=== PATIENT | female | born 1965 | race Caucasian/White ===

== ENCOUNTER 2019-04-26 10:03 | Inpatient (IN) | payer MEDICARE, MEDICAID, SELFPAY ==
[2019-04-28] VITALS (19 sets, daily range): BP systolic 121–137; BP diastolic 72–84; PULSE 100–120; RESP 8–28; TEMP 36.7–37; O2SAT 90–96
[2019-04-28] MEDS: oxyCODONE 5 mg IR Tab/Cap 15 MG PO ×5 (01:38→20:14)
[2019-04-28] MEDS: sodium chloride 0.9 % (flush) syringe 10 mL 2 ML IV ×3 (06:31→21:12)
[2019-04-28] MEDS: ipratropium-albuterol 3 mL Neb INHALATION ×4 (08:16→19:53)
[2019-04-28] MEDS: montelukast sodium 10 mg Tablet PO (08:40)
[2019-04-28] MEDS: PARoxetine 20 mg Tablet 10 MG PO (08:40)
[2019-04-28] MEDS: pantoprazole DR 40 mg Tablet PO (08:40)
[2019-04-28] MEDS: folic acid 1 mg Tablet PO (08:40)
[2019-04-28] MEDS: thiamine 100 mg Tablet PO (08:40)
[2019-04-28] MEDS: roflumilast 500 mcg Tablet PO (08:40)
[2019-04-28] MEDS: multivitamin therapeutic Tablet 1 TAB PO (08:40)
[2019-04-28] MEDS: acetaminophen 325 mg Tablet 650 MG PO (08:41)
[2019-04-28] MEDS: nicotine 21 mg Patch 1 PATCH TRANSDERMA (08:41)
[2019-04-28] MEDS: enoxaparin 40 mg/0.4 mL Syringe SUBCUT (10:45)
[2019-04-28] MEDS: LORazepam 2 mg/mL INJ 1 mL IVP (14:52)
[2019-04-28] MEDS: levofloxacin-dextrose 5% 750 mg-150 mL Premix 150 MG IV (17:39)
--- NOTE | 2019-04-28 19:34 | PM.PN ---
Subjective Subjective: Interval history: Today feeling perhaps very slightly better. During my visit BiPAP is off, she is preparing to have dinner. Nasal cannula on. Speaks in short sentences. Reports medications have been have been helping for her anxiety. Reports at home still has between 1 and 3 beers at night which she says she spaces out over several hours. Vitals/I&O/Wt Last Vital Signs Temp 98.5 F 04/28/19 15:35 Pulse 113 H 04/28/19 16:56 Resp 20 H 04/28/19 15:35 BP 121/79 04/28/19 15:35 Pulse Ox 90 04/28/19 16:56 04/28/19 04/28/19 04/28/19 06:59 14:59 22:59 Intake Total 780 / 780 120 / 900 Output Total 1100 / 1100 Balance -1100 / -1100 780 / 780 120 / 900 Weight last 48 hrs Weight 52.758 kg Physical Exam Const: COMMON NORMALS: no apparent distress and oriented x3 GENERAL APPEARANCE: anxious HENMT: COMMON NORMALS: oropharynx normal Neck/C-Spine: COMMON NORMALS: no JVD Resp: COMMON NORMALS: normal respiratory effort AUSCULTATION: wheezes and diminished lung sounds Cardio: COMMON NORMALS: no JVD, regular rhythm, S1 normal heart sound, S2 normal heart sound and no murmurs RHYTHM: regular rhythm HEART SOUNDS: S1 normal and S2 normal GI: COMMON NORMALS: normal to inspection, nondistended, normoactive bowel sounds, soft to palpation and non-tender PALPATION: Yes soft Extremity: COMMON NORMALS: no joint enlargement and no pedal edema Neuro: COMMON NORMALS: oriented x3 and moves all extremities Skin: COMMON NORMALS: no rashes or lesions noted GENERAL SKIN EXAM: no rashes or lesions noted Data Micro: Micro: Microbiology 04/28/19 08:06 Gram Stain - Final Sputum - Expector ated Sputum A&P Assessment and plan (1) Acute and chronic respiratory failure ([id number]): Requiring BiPAP support. Today feeling perhaps slightly better. Was able to come off BiPAP for some time to have dinner while on nasal cannula. At home chronically on 4 L nasal cannula, BiPAP at night due to INOCENCIO. Yesterday due to persistent dyspnea steroid dose was increased to Solu-Medrol 80 mg every 6 hours. She is mildly improved, still very easily dyspneic, with decreased air entry, wheezing on exam. She is agreeable to continue current dose of IV steroid. Continue Levaquin. Breathing treatments. Oxygen support. BiPAP support. Status: Acute Code(s): J96.20 - Acute and chronic respiratory failure, unspecified whether with hypoxia or hypercapnia (2) COPD exacerbation: Severe exacerbation with dyspnea, productive cough, hypoxia. As above Status: Acute Code(s): J44.1 - Chronic obstructive pulmonary disease with (acute) exacerbation (3) INOCENCIO (obstructive sleep apnea): BiPAP nightly Status: Acute Code(s): G47.33 - Obstructive sleep apnea (adult) (pediatric) (4) Smoking addiction: Continue nicotine supplementation for cravings. Continue to encourage cessation. Status: Acute Code(s): F17.200 - Nicotine dependence, unspecified, uncomplicated (5) Alcohol consumption of more than two drinks per day: With alcohol withdrawal in the hospital. With anxiety, tachycardia. Continue CIWA protocol for withdrawal. Discussed with her she says at home has anywhere between 1-3 beers per night. Discussed with her to try to discontinue alcohol intake or at least keep down to 1 drink or less. She verbalized understanding. Status: Acute Code(s): Z78.9 - Other specified health status Attestations Medical Necessity Statement*: Continue admission for assessment of management of acute on chronic respiratory failure with severe COPD exacerbation. Coding Level of Care Code Acute Fast Food Assistant Restaurant Manager for Kaylah Bach Diagnoses Acute and chronic respiratory failure ([id number]) J96.20 COPD exacerbation J44.1 INOCENCIO (obstructive sleep apnea) G47.33 Smoking addiction F17.200 Alcohol consumption of more than two drinks per day Z78.9
[2019-04-29] VITALS (22 sets, daily range): BP systolic 119–153; BP diastolic 70–88; PULSE 99–133; RESP 18–22; TEMP 36.4–37.1; O2SAT 90–98
[2019-04-29] MEDS: ipratropium-albuterol 3 mL Neb INHALATION ×6 (01:00→22:45)
[2019-04-29] MEDS: oxyCODONE 5 mg IR Tab/Cap 15 MG PO ×5 (03:10→21:01)
[2019-04-29 05:43] LABS: Anion Gap 9.1 (5-19); Blood Urea Nitrogen 14 mg/dL (6-20); Calcium 9.9 mg/Dl (8.6-10.0); Chloride 93 mmol/L (98-107); Glucose 164 mg/dL (74-109); Potassium 4.1 mmol/L (3.5-5.1); Sodium 140 mmol/L (136-145)
[2019-04-29] MEDS: sodium chloride 0.9 % (flush) syringe 10 mL 2 ML IV ×3 (05:44→23:24)
[2019-04-29 05:53] LABS: Carbon Dioxide 42 mmol/L (22-29)
[2019-04-29] MEDS: folic acid 1 mg Tablet PO (08:23)
[2019-04-29] MEDS: roflumilast 500 mcg Tablet PO (08:23)
[2019-04-29] MEDS: pantoprazole DR 40 mg Tablet PO (08:23)
[2019-04-29] MEDS: PARoxetine 20 mg Tablet 10 MG PO (08:24)
[2019-04-29] MEDS: thiamine 100 mg Tablet PO (08:24)
[2019-04-29] MEDS: multivitamin therapeutic Tablet 1 TAB PO (08:24)
[2019-04-29] MEDS: montelukast sodium 10 mg Tablet PO (08:24)
[2019-04-29] MEDS: nicotine 21 mg Patch 1 PATCH TRANSDERMA (08:25)
--- NOTE | 2019-04-29 11:07 | PC.SOCIAL ---
IMM Update Pg 2 of IMM given and explained to patient who voiced understanding. Signed, dated, and timed, and placed in chart. Copy provided to patient.
[2019-04-29] MEDS: enoxaparin 40 mg/0.4 mL Syringe SUBCUT (12:19)
--- NOTE | 2019-04-29 15:00 | PC.CHAP ---
Pastoral Care Encounter/Spiritual Assessment Type of Contact [] Declined chlorine cell tender visit [] Patient/Family/Request visit [] Outpatient visit [x] Follow-up visit [] Physician referral [] Code/Alert [] Routine visit [] Staff referral [] Actively dying [] Patient sleeping [] Family support [] [] Out of room [] Palliative care [] [x] Receiving care in room [] Pre-surgical visit [] Trauma [] Long length of stay [] ICU visit [] Other: Relational/Emotional Strength [] Patient feels connected with others/family/visitors/staff [] Distress [] Loneliness/isolation [] Abandonment Spirituality of Patient [] Person of Any [] Attends Taoist of their Any [] Believes in Prayer [] Reads Bible or Mu-Ism materials [] There are Spiritual issues to be addressed Boilermaking Supervisor Interventions [] Prayer [] Active listening [] Non-anxious presence [] Spiritual/emotional support [] Crisis/trauma care [] Spiritual counseling [] Bereavement support [] Provided bereavement packet [] Provided Bible/devotional materials [] Provided toy/stuffed animal, coloring book to patient or family member [] Completed spiritual assessment [] Provided Communion [] Anointing/[place] [] Salvation [] Other: Impact on Illness or Injury [] Angry [] Fearful [] Anxious [] Often cries [] Exhaustion [] Unable to work [] Unable to attend quaker [] Unable to walk/stand [] Unable to read [] Unable to drive [] Unable to eat/drink [] Unable to sleep [] Unable to be with family [] Other: Summary Patient busy with staff, will followup. Lynnette Time spent with patient
--- NOTE | 2019-04-29 16:08 | PM.PN ---
Subjective Subjective: Interval history: She is slowly starting to feel better, although is getting short of breath episodically. Has been using BiPAP less frequently. Medications: Reviewed: Yes Vitals/I&O/Wt Last Vital Signs Temp 98.2 F 04/29/19 15:28 Pulse 114 H 04/29/19 15:28 Resp 20 H 04/29/19 15:28 BP 129/72 04/29/19 15:28 Pulse Ox 90 04/29/19 15:28 04/29/19 04/29/19 04/29/19 06:59 14:59 22:59 Intake Total 354 / 354 476 / 830 Output Total 1000 / 1600 600 / 600 Balance -1000 / -190 354 / 354 -124 / 230 Physical Exam Const: COMMON NORMALS: no apparent distress and oriented x3 NUTRITIONAL APPEARANCE: thin OTHER: Mildly tremulous HENMT: COMMON NORMALS: oropharynx normal Neck/C-Spine: COMMON NORMALS: no JVD Resp: COMMON NORMALS: normal respiratory effort AUSCULTATION: wheezes and diminished lung sounds Cardio: COMMON NORMALS: no JVD, regular rhythm, S1 normal heart sound, S2 normal heart sound and no murmurs RATE: tachycardic RHYTHM: regular rhythm HEART SOUNDS: S1 normal and S2 normal GI: COMMON NORMALS: normal to inspection, nondistended, normoactive bowel sounds, soft to palpation and non-tender PALPATION: Yes soft Extremity: COMMON NORMALS: no joint enlargement and no pedal edema Neuro: COMMON NORMALS: oriented x3 and moves all extremities Psych: APPEARANCE: Yes other (Today appears less anxious) Skin: COMMON NORMALS: no rashes or lesions noted GENERAL SKIN EXAM: no rashes or lesions noted Data Micro: Micro: Microbiology 04/28/19 08:06 Gram Stain - Final Sputum - Expector ated Sputum Sputum Culture - P reliminary A&P Assessment and plan (1) Acute and chronic respiratory failure (ooqyf-go-okuokpt): Requiring less BiPAP support. Less anxious. On 6 L of oxygen. Today feeling perhaps slightly better. Was able to come off BiPAP for some time to have dinner while on nasal cannula. At home chronically on 4 L nasal cannula, BiPAP at night due to INOCENCIO. Sputum culture with mixed growth. Continue current dose of IV steroid. Continue Levaquin. Breathing treatments. Oxygen support. BiPAP support. Status: Acute Code(s): J96.20 - Acute and chronic respiratory failure, unspecified whether with hypoxia or hypercapnia (2) COPD exacerbation: Severe exacerbation with dyspnea, productive cough, hypoxia. As above. Improving very slowly. Status: Acute Code(s): J44.1 - Chronic obstructive pulmonary disease with (acute) exacerbation (3) INOCENCIO (obstructive sleep apnea): BiPAP nightly Status: Acute Code(s): G47.33 - Obstructive sleep apnea (adult) (pediatric) (4) Smoking addiction: Continue nicotine supplementation for cravings. Continue to encourage cessation. Status: Acute Code(s): F17.200 - Nicotine dependence, unspecified, uncomplicated (5) Alcohol consumption of more than two drinks per day: Alcohol withdrawal improving. Discussed with her to try to discontinue alcohol intake or at least keep down to 1 drink or less. She verbalized understanding. Status: Acute Code(s): Z78.9 - Other specified health status Attestations Medical Necessity Statement*: Continue admission for self-management of acute respiratory with hypoxia, severe COPD exacerbation, alcohol withdrawal. Coding Level of Care Code Acute Assistant Offset Press Operator for Kaylah Bach Diagnoses Acute and chronic respiratory failure ([id number]-[id number]) J96.20 COPD exacerbation J44.1 INOCENCIO (obstructive sleep apnea) G47.33 Smoking addiction F17.200 Alcohol consumption of more than two drinks per day Z78.9
[2019-04-29] MEDS: LORazepam 2 mg Tablet PO (16:11)
[2019-04-29] MEDS: acetaminophen 325 mg Tablet 650 MG PO (16:12)
[2019-04-29] MEDS: levofloxacin-dextrose 5% 750 mg-150 mL Premix 150 MG IV (16:16)
--- NOTE | 2019-04-29 16:42 | PC.RESP ---
bipap on standby-#B2,
--- NOTE | 2019-04-29 19:16 | PC.RESP ---
bipap on standby
[2019-04-30] VITALS (25 sets, daily range): BP systolic 121–149; BP diastolic 76–87; PULSE 106–123; RESP 16–22; TEMP 36.6–37.1; O2SAT 89–96
[2019-04-30] MEDS: oxyCODONE 5 mg IR Tab/Cap 15 MG PO ×5 (02:44→20:06)
[2019-04-30] MEDS: ipratropium-albuterol 3 mL Neb INHALATION ×6 (03:02→23:05)
[2019-04-30] MEDS: sodium chloride 0.9 % (flush) syringe 10 mL 2 ML IV ×2 (05:35→14:02)
[2019-04-30 06:30] LABS: Anion Gap 13.2 (5-19); Blood Urea Nitrogen 11 mg/dL (6-20); Calcium 9.5 mg/Dl (8.6-10.0); Carbon Dioxide 38 mmol/L (22-29); Chloride 93 mmol/L (98-107); Glomerular Filtration Rate 233.6 mL/min (90-130); Glucose 198 mg/dL (74-109); Potassium 4.2 mmol/L (3.5-5.1); Sodium 140 mmol/L (136-145)
--- NOTE | 2019-04-30 08:34 | PC.RESP ---
BIPAP ON STAND BY AT THIS TIME
[2019-04-30] MEDS: folic acid 1 mg Tablet PO (09:07)
[2019-04-30] MEDS: roflumilast 500 mcg Tablet PO (09:08)
[2019-04-30] MEDS: thiamine 100 mg Tablet PO (09:08)
[2019-04-30] MEDS: PARoxetine 20 mg Tablet 10 MG PO (09:08)
[2019-04-30] MEDS: montelukast sodium 10 mg Tablet PO (09:08)
[2019-04-30] MEDS: multivitamin therapeutic Tablet 1 TAB PO (09:08)
[2019-04-30] MEDS: pantoprazole DR 40 mg Tablet PO (09:09)
[2019-04-30] MEDS: nicotine 21 mg Patch 1 PATCH TRANSDERMA (09:11)
[2019-04-30] MEDS: acetaminophen 325 mg Tablet 650 MG PO ×2 (09:11→19:38)
[2019-04-30] MEDS: LORazepam 2 mg Tablet PO ×2 (09:11→19:37)
--- NOTE | 2019-04-30 12:04 | PC.NURSE ---
Respiratory notified of Dr. Nielson's request of o2 to be weaned to keep sats around 92% to keep patient from retaining c02.
[2019-04-30] MEDS: enoxaparin 40 mg/0.4 mL Syringe SUBCUT (12:19)
--- NOTE | 2019-04-30 13:18 | PC.CHAP ---
Pastoral Care Encounter/Spiritual Assessment Type of Contact [] Declined shoulder puncher visit [] Patient/Family/Request visit [] Outpatient visit [] Follow-up visit [] Physician referral [] Code/Alert [x] Routine visit [] Staff referral [] Actively dying [] Patient sleeping [] Family support [] [] Out of room [] Palliative care [] [] Receiving care in room [] Pre-surgical visit [] Trauma [] Long length of stay [] ICU visit [] Other: Relational/Emotional Strength [x] Patient feels connected with others/family/visitors/staff [] Distress [] Loneliness/isolation [] Abandonment Spirituality of Patient [x] Person of Any [] Attends Religion of their Any [x] Believes in Prayer [] Reads Bible or Yazidism materials [] There are Spiritual issues to be addressed Seo Executive Interventions [x] Prayer [x] Active listening [x] Non-anxious presence [x] Spiritual/emotional support [] Crisis/trauma care [] Spiritual counseling [] Bereavement support [] Provided bereavement packet [] Provided Bible/devotional materials [] Provided toy/stuffed animal, coloring book to patient or family member []x Completed spiritual assessment [] Provided Communion [] Anointing/[place] [] Salvation [] Other: Impact on Illness or Injury [] Angry [] Fearful [] Anxious [] Often cries [] Exhaustion [x] Unable to work [] Unable to attend jew [] Unable to walk/stand [] Unable to read [] Unable to drive [] Unable to eat/drink [] Unable to sleep [] Unable to be with family [] Other: Summary Suzette Rodriguez Time spent with patient 8-minutes
--- NOTE | 2019-04-30 13:39 | PC.RESP ---
Patient given information on Smoking Cessation and a schedule of classes,along with information for Pulmonary Rehab.
[2019-04-30] MEDS: predniSONE 20 mg Tablet 60 MG PO (14:01)
[2019-04-30] MEDS: levofloxacin-dextrose 5% 750 mg-150 mL Premix 150 MG IV (17:43)
--- NOTE | 2019-04-30 18:01 | PM.PN ---
Subjective Subjective: Interval history: Reports slow continuous improvement. Still coughing. Intermittent phlegm. Medications: Reviewed: Yes Vitals/I&O/Wt Last Vital Signs Temp 98.4 F 04/30/19 15:45 Pulse 119 H 04/30/19 15:45 Resp 16 04/30/19 15:53 BP 135/83 04/30/19 15:45 Pulse Ox 89 L 04/30/19 15:45 04/30/19 04/30/19 04/30/19 06:59 14:59 22:59 Intake Total 1000 / 2792 300 / 300 Output Total 200 / 800 1000 / 1000 200 / 1200 Balance / 1991 -700 / -700 -200 / -900 Physical Exam Const: COMMON NORMALS: no apparent distress and oriented x3 GENERAL APPEARANCE: anxious NUTRITIONAL APPEARANCE: thin OTHER: Mildly tremulous HENMT: COMMON NORMALS: oropharynx normal Neck/C-Spine: COMMON NORMALS: no JVD Resp: COMMON NORMALS: normal respiratory effort AUSCULTATION: wheezes and diminished lung sounds Cardio: COMMON NORMALS: no JVD, regular rhythm, S1 normal heart sound, S2 normal heart sound and no murmurs RATE: tachycardic RHYTHM: regular rhythm HEART SOUNDS: S1 normal and S2 normal GI: COMMON NORMALS: normal to inspection, nondistended, normoactive bowel sounds, soft to palpation and non-tender PALPATION: Yes soft Extremity: COMMON NORMALS: no joint enlargement and no pedal edema Neuro: COMMON NORMALS: oriented x3 and moves all extremities Psych: APPEARANCE: Yes other (Today appears less anxious) Skin: COMMON NORMALS: no rashes or lesions noted GENERAL SKIN EXAM: no rashes or lesions noted Data Micro: Micro: Microbiology 04/28/19 08:06 Gram Stain - Final Sputum - Expector ated Sputum Sputum Culture - F inal A&P Assessment and plan (1) Acute and chronic respiratory failure ([id number]): Slowly improving. Still hypoxic, diminished air entry on exam, wheezing, intermittently productive cough. Tachycardia. Sputum culture with mixed growth. Will change to oral steroid. Continue Levaquin. Breathing treatments. Oxygen support. BiPAP support. Status: Acute Code(s): J96.20 - Acute and chronic respiratory failure, unspecified whether with hypoxia or hypercapnia (2) COPD exacerbation: Severe exacerbation with dyspnea, productive cough, hypoxia. As above. Improving very slowly. Status: Acute Code(s): J44.1 - Chronic obstructive pulmonary disease with (acute) exacerbation (3) INOCENCIO (obstructive sleep apnea): BiPAP nightly Status: Acute Code(s): G47.33 - Obstructive sleep apnea (adult) (pediatric) (4) Smoking addiction: Continue nicotine supplementation for cravings. Continue to encourage cessation. Status: Acute Code(s): F17.200 - Nicotine dependence, unspecified, uncomplicated (5) Alcohol consumption of more than two drinks per day: Alcohol withdrawal appears to be resolving. Discussed with her to try to discontinue alcohol intake or at least keep down to 1 drink or less. Status: Acute Code(s): Z78.9 - Other specified health status Attestations Medical Necessity Statement*: Continue admission for assessment management of acute respiratory failure with hypoxia, COPD exacerbation. Coding Level of Care Code Acute Food And Beverage Server for Kaylah Bach Diagnoses Acute and chronic respiratory failure ([id number]) J96.20 COPD exacerbation J44.1 INOCENCIO (obstructive sleep apnea) G47.33 Smoking addiction F17.200 Alcohol consumption of more than two drinks per day Z78.9
[2019-05-01] VITALS (22 sets, daily range): BP systolic 122–152; BP diastolic 68–91; PULSE 64–127; RESP 18–22; TEMP 36.7–37.1; O2SAT 92–97
[2019-05-01] MEDS: oxyCODONE 5 mg IR Tab/Cap 15 MG PO ×5 (00:51→21:29)
[2019-05-01] MEDS: ipratropium-albuterol 3 mL Neb INHALATION ×5 (02:23→23:01)
[2019-05-01] MEDS: LORazepam 2 mg Tablet PO ×2 (06:08→21:29)
[2019-05-01] MEDS: sodium chloride 0.9 % (flush) syringe 10 mL 2 ML IV ×2 (06:33→21:09)
[2019-05-01 06:43] LABS: Anion Gap 13.1 (5-19); Blood Urea Nitrogen 12 mg/dL (6-20); Calcium 9.6 mg/Dl (8.6-10.0); Carbon Dioxide 37 mmol/L (22-29); Chloride 90 mmol/L (98-107); Glomerular Filtration Rate 233.6 mL/min (90-130); Glucose 84 mg/dL (74-109); Potassium 4.1 mmol/L (3.5-5.1); Sodium 136 mmol/L (136-145)
--- NOTE | 2019-05-01 08:41 | PC.NURSE ---
pt bp 132/84 . reported the patients vomit was undigested food possibly due to coughing. O2 sat high 90s
--- NOTE | 2019-05-01 09:30 | ECG_ITS ---
Measurements Intervals [place] Rate: 123 P: 79 AL: 120 QRS: 64 QRSD: 97 T: 67 QT: 298 QTc: 428 SINUS TACHYCARDIA INCOMPLETE RIGHT BUNDLE BRANCH BLOCK [90+ ms QRS DURATION, TERMINAL R IN V1/V2, 40+ ms S IN I/aVL/V4/V5/V6] Compared to ECG 04/27/2019 14:57:41 No significant changes Electronically Signed On 05-01-2019 14:59:15 SUPERVISOR MULT[employer]ENS by Laury De Paz M.D. [email or web address]
[2019-05-01] MEDS: nicotine 21 mg Patch 1 PATCH TRANSDERMA (09:53)
[2019-05-01] MEDS: guaiFENesin-dextromethorphan UDC 10 mL PO ×2 (09:53→22:51)
[2019-05-01] MEDS: multivitamin therapeutic Tablet 1 TAB PO (09:54)
[2019-05-01] MEDS: folic acid 1 mg Tablet PO (09:54)
[2019-05-01] MEDS: thiamine 100 mg Tablet PO (09:54)
[2019-05-01] MEDS: predniSONE 20 mg Tablet 60 MG PO (09:54)
[2019-05-01] MEDS: roflumilast 500 mcg Tablet PO (09:54)
[2019-05-01] MEDS: montelukast sodium 10 mg Tablet PO (09:55)
[2019-05-01] MEDS: PARoxetine 20 mg Tablet 10 MG PO (09:55)
[2019-05-01] MEDS: pantoprazole DR 40 mg Tablet PO (09:55)
[2019-05-01] MEDS: ondansetron 4 MG Tablet PO (09:55)
--- NOTE | 2019-05-01 11:30 | PC.SOCIAL ---
IMM Update Pg 2 of IMM Given and explained to patient who voiced understanding. Signed, dated and timed and placed in chart. Copy provided to patient.
[2019-05-01] MEDS: enoxaparin 40 mg/0.4 mL Syringe SUBCUT (12:49)
--- NOTE | 2019-05-01 12:56 | CTR_ITS ---
PROCEDURE INFORMATION: Exam: CT Angiography Chest With Contrast Exam date and time: 05/01/2019 2:44 PM Age: 53 years old Clinical indication: Dyspnea; Additional info: Hypoxia, tachycardia TECHNIQUE: Imaging protocol: Computed tomographic angiography of the chest with intravenous contrast. 3D rendering: MIP and/or 3D reconstructed images were created by the technologist. Total DLP: 616.53 mGy-cm Radiation optimization: All CT scans at this facility use at least one of these dose optimization techniques: automated exposure control; mA and/or kV adjustment per patient size (includes targeted exams where dose is matched to clinical indication); or iterative reconstruction. Contrast material: VISI; Contrast volume: 95 ml; Contrast route: IV; COMPARISON: CTA Chest-Pulmonary Emb [id number] 05/06/2015 7:55 AM FINDINGS: Pulmonary arteries: There is no pulmonary embolus. Aorta: Unremarkable. No aortic aneurysm. No aortic dissection. Thyroid: Unchanged enlargement of the thyroid gland. No discrete nodule. Lungs: There are moderate emphysematous changes. Mild fibrotic changes are noted. No new airspace opacity. Pleural space: Unremarkable. No pneumothorax. No pleural effusion. Heart: Unremarkable. No cardiomegaly. No pericardial effusion. Lymph nodes: Unremarkable. No enlarged lymph nodes. Bones/joints: There is a old unchanged fracture as compared to 05/09/2017 CT scan. Unchanged old mild anterior wedging of T4 is also noted. Old bilateral rib fractures are noted. Soft tissues: Unremarkable. CT/CT angio chest PE protcl [id number] IMPRESSION: 1. There is no pulmonary embolus. 2. No acute abnormality. Radiation Dose CTDIVOL = (mGy): DLP = 616.53 (mGy-cm)
--- NOTE | 2019-05-01 13:31 | P.PN_ITS ---
Subjective Subjective: Interval history: This morning she was having an episode of cough, after which she had vomiting, with ensuing tachycardia with heart rates around 150s. EKG obtained, sinus tachycardia into 120s. Heart rates improved somewhat, however, staying elevated. She states at home her heart rates are chronically elevated and says almost always run above 100. She denies chest pain. She is overall feeling slightly better. She complains of nasal congestion. Vitals/I&O/Wt Last Vital Signs Temp 98.0 F 05/01/19 11:27 Pulse 118 H 05/01/19 11:27 Resp 22 H 05/01/19 11:27 BP 146/87 05/01/19 11:27 Pulse Ox 95 05/01/19 11:27 04/30/19 05/01/19 05/01/19 22:59 06:59 14:59 Intake Total 710 / 1010 480 / 1490 720 / 720 Output Total 200 / 1200 1450 / 2650 Balance 510 / -190 -970 / -1160 720 / 720 Physical Exam Const: COMMON NORMALS: no apparent distress and oriented x3 GENERAL APPEARANCE: anxious NUTRITIONAL APPEARANCE: thin OTHER: Mildly tremulous HENMT: COMMON NORMALS: oropharynx normal Neck/C-Spine: COMMON NORMALS: no JVD Resp: COMMON NORMALS: normal respiratory effort AUSCULTATION: diminished lung sounds (However with improved air entry. Today no wheezing.) Cardio: COMMON NORMALS: no JVD, regular rhythm, S1 normal heart sound, S2 normal heart sound and no murmurs RATE: tachycardic RHYTHM: regular rhythm HEART SOUNDS: S1 normal and S2 normal GI: COMMON NORMALS: normal to inspection, nondistended, normoactive bowel sounds, soft to palpation and non-tender PALPATION: Yes soft Extremity: COMMON NORMALS: no joint enlargement and no pedal edema Neuro: COMMON NORMALS: oriented x3 and moves all extremities Psych: APPEARANCE: Yes other (Today appears less anxious) Skin: COMMON NORMALS: no rashes or lesions noted GENERAL SKIN EXAM: no rashes or lesions noted Data Micro: Micro: Microbiology 04/28/19 08:06 Gram Stain - Final Sputum - Expector ated Sputum Sputum Culture - F inal A&P Assessment and plan (1) Acute and chronic respiratory failure ([id number]-if-rlgbwif): Improving. Air entry is better on exam. She is down to 3 L oxygen by nasal cannula. This morning with persistent tachycardia, initially in 150s after episode of vomiting induced by a bout of cough, but still with persistent tachycardia in 120s. Sinus rhythm on EKG. Will assess with CTA PE protocol. Sputum culture with mixed growth. Changed to oral steroid. Continue Levaquin. Breathing treatments. Oxygen support. BiPAP support. Status: Acute Code(s): J96.20 - Acute and chronic respiratory failure, unspecified whether with hypoxia or hypercapnia (2) COPD exacerbation: Severe exacerbation with dyspnea, productive cough, hypoxia. As above. Improving very slowly. Status: Acute Code(s): J44.1 - Chronic obstructive pulmonary disease with (acute) exacerbation (3) INOCENCIO (obstructive sleep apnea): BiPAP nightly Status: Acute Code(s): G47.33 - Obstructive sleep apnea (adult) (pediatric) (4) Smoking addiction: Continue nicotine supplementation for cravings. Continue to encourage cessation. Status: Acute Code(s): F17.200 - Nicotine dependence, unspecified, uncomplicated (5) Alcohol consumption of more than two drinks per day: Alcohol withdrawal appears to be resolving. Discussed with her to try to discontinue alcohol intake or at least keep down to 1 drink or less. Status: Acute Code(s): Z78.9 - Other specified health status Additional A&P Information Additional A&P Information: Nasal congestion: We will add Flonase. Reports history of allergic rhinitis. Attestations Medical Necessity Statement*: Continue admission for assessment management of acute respiratory failure with hypoxia, persistent tachycardia. Coding Level of Care Code Acute Compotype Operator for Kaylah Bach Diagnoses Acute and chronic respiratory failure ([id number]) J96.20 COPD exacerbation J44.1 INOCENCIO (obstructive sleep apnea) G47.33 Smoking addiction F17.200 Alcohol consumption of more than two drinks per day Z78.9
[2019-05-01] MEDS: levofloxacin-dextrose 5% 750 mg-150 mL Premix 150 MG IV (17:25)
[2019-05-01] MEDS: iodixanol 320 mg/mL 100mL Btl IV (21:03)
[2019-05-02] VITALS (15 sets, daily range): BP systolic 108–149; BP diastolic 56–84; PULSE 104–122; RESP 18–26; TEMP 36.3–36.9; O2SAT 78–97
[2019-05-02] MEDS: oxyCODONE 5 mg IR Tab/Cap 15 MG PO ×3 (01:33→12:09)
[2019-05-02] MEDS: ipratropium-albuterol 3 mL Neb INHALATION ×3 (03:17→10:35)
[2019-05-02] MEDS: LORazepam 2 mg Tablet PO ×2 (05:29→09:54)
[2019-05-02] MEDS: sodium chloride 0.9 % (flush) syringe 10 mL 2 ML IV (05:30)
[2019-05-02 06:34] LABS: Basophils % 0.2 %; Eosinophils # 0.2 10^3/uL (0.0-0.8); Eosinophils % 1.9 %; Hematocrit 43.4 % (37.0-47.0); Hemoglobin 13.3 g/dL (11.5-15.3); Lymphocytes # 4.4 10^3/uL (0.8-4.8); Lymphocytes % 46.5 %; Mean Corpuscular HGB Conc 30.6 g/dL (30.0-36.0); Mean Corpuscular Hemoglobin 30.9 pg (28.0-34.0); Mean Corpuscular Volume 100.9 fL (81-99); Mean Platelet Volume 10.5 fL (7.4-10.4); Monocytes # 1.3 10^3/uL (0.2-0.9); Monocytes % 13.6 %; Neutrophils # 3.4 10^3/uL (1.8-7.7); Nucleated Red Blood Cells % 0 %; Platelet Count 330 10^3/cmm (130-400); Red Cell Distribution Width 13.3 % (12.1-15.1); White Blood Count 9.5 10^3/uL (4.0-10.0)
[2019-05-02 06:43] LABS: Alanine Aminotransferase 25 U/L (0-33); Albumin Level 4.1 g/dL (3.5-5.2); Alkaline Phosphatase 65 IU/L (35-105); Anion Gap 13.4 (5-19); Aspartate Amino Transferase 16 U/L (0-32); Blood Urea Nitrogen 12 mg/dL (6-20); Calcium 9.5 mg/Dl (8.6-10.0); Carbon Dioxide 37 mmol/L (22-29); Chloride 91 mmol/L (98-107); Globulin 1.8 g/dL (1.3-4.6); Glomerular Filtration Rate 233.6 mL/min (90-130); Glucose 89 mg/dL (74-109); Potassium 4.4 mmol/L (3.5-5.1); Sodium 137 mmol/L (136-145); Total Bilirubin 0.2 mg/dL (0.15-1.2); Total Protein 5.9 g/dL (6.6-8.7)
[2019-05-02] MEDS: guaiFENesin-dextromethorphan UDC 10 mL PO (07:55)
[2019-05-02] MEDS: fluticasone nasal spray 16gm Btl 2 SPRAY NASAL (09:35)
[2019-05-02] MEDS: PARoxetine 20 mg Tablet 10 MG PO (09:36)
[2019-05-02] MEDS: multivitamin therapeutic Tablet 1 TAB PO (09:36)
[2019-05-02] MEDS: montelukast sodium 10 mg Tablet PO (09:37)
[2019-05-02] MEDS: roflumilast 500 mcg Tablet PO (09:37)
[2019-05-02] MEDS: pantoprazole DR 40 mg Tablet PO (09:38)
[2019-05-02] MEDS: predniSONE 20 mg Tablet 60 MG PO (09:38)
[2019-05-02] MEDS: thiamine 100 mg Tablet PO (09:39)
[2019-05-02] MEDS: nicotine 21 mg Patch 1 PATCH TRANSDERMA (09:39)
[2019-05-02] MEDS: folic acid 1 mg Tablet PO (09:39)
--- NOTE | 2019-05-02 12:01 | P.DS_ITS ---
Discharge Providers Date of Admission: 04/26/19 10:03 Date of Discharge: 05/02/19 Attending Provider at Admission: Kuldeep Nielson Attending Provider at Discharge: Kuldeep Nielson Primary Care Provider: Arnaldo Pimentel Diagnoses at Discharge Discharge Diagnosis (1) Acute and chronic respiratory failure ([id number]): Status: Acute (2) COPD exacerbation: Status: Acute (3) INOCENCIO (obstructive sleep apnea): Status: Acute (4) Smoking addiction: Status: Acute (5) Alcohol consumption of more than two drinks per day: Status: Acute Reason for Visit Reason for Visit: Reason For Visit: Copd Exacerbation;Hypercapniec Resp. Failure Hospital Course Discharge Summary: 53-year-old lady with history of COPD, chronically on 4 L oxygen by nasal cannula, intermittently on BiPAP support, has a nebulizer at home, current smoker of 2 packs/day presented to the emergency department with shortness of breath, cough, worsening over the preceding 2 to 3 days. She reported her grandson being ill with pneumonia and recently returning home. During prior admission was also noted to have 1-3 drinks per night which she takes to help her fall asleep. Due to acute respiratory failure with hypoxia and hypercapnia was started on BiPAP support in ER, received treatment with IV steroids, antibiotics, breathing treatments, oxygen support. IV steroid dose had to be increased due to persistent dyspnea, hypoxia, tachycardia. She eventually weaned off persistent BiPAP support. Oxygen requirement came down to 3 L by nasal cannula. She has had persistent tachycardia, sinus, in 120s. She reports chronic tachycardia. Due to hypoxia, with tachycardia was assessed by CTA to rule out pulmonary embolization, and this was not noted. Due to chronic tachycardia will refer her for assessment by cardiology in office. For now due to somewhat elevated risk of DVT and PE post discharge will extend DVT prophylaxis with Lovenox for 1 week at home. She will complete antibiotic course with Levaquin. She will complete a steroid taper over 12 days. We will have her follow-up with pulmonology, and set up pulmonary rehab if she is able to attend. During the hospitalization she was also treated for suspected alcohol withdrawal. She was counseled on avoiding alcohol intake, reducing to at most 1 drink per day. She had symptoms consistent with alcohol withdrawal in the hospital which had resolved. Please revisit this with her in office. She was also counseled on smoking cessation. She reports she has been dealing with anxiety, this appears to have been contributing to her symptoms of air hunger. For now we will give her several day supply of Xanax as needed, however, we have discussed that this is not a good long-term medication, and with potential for adverse effects, also in the setting of COPD. She is encouraged to follow-up with behavioral health care. Physical Exam Const: COMMON NORMALS: no apparent distress and oriented x3 GENERAL APPEARANCE: anxious NUTRITIONAL APPEARANCE: thin OTHER: Mildly tremulous HENMT: COMMON NORMALS: oropharynx normal Neck/C-Spine: COMMON NORMALS: no JVD Resp: COMMON NORMALS: normal respiratory effort AUSCULTATION: wheezes and diminished lung sounds (However with improved air entry. Today no wheezing.) Cardio: COMMON NORMALS: no JVD, regular rhythm, S1 normal heart sound, S2 normal heart sound and no murmurs RATE: tachycardic RHYTHM: regular rhythm HEART SOUNDS: S1 normal and S2 normal GI: COMMON NORMALS: normal to inspection, nondistended, normoactive bowel sounds, soft to palpation and non-tender PALPATION: Yes soft Extremity: COMMON NORMALS: no joint enlargement and no pedal edema Neuro: COMMON NORMALS: oriented x3 and moves all extremities Psych: APPEARANCE: Yes other (Today appears less anxious) Skin: COMMON NORMALS: no rashes or lesions noted GENERAL SKIN EXAM: no rashes or lesions noted Discharge Data Data Completed and Pending: Completed Studies During Hospitalization Category Date Time Status CT angio chest PE protcl [id number] Rout ine Cat Scan 05/01/19 12:56 Completed Labs from last 24 hours 05/02/19 05/02/19 05:19 05:19 WBC 9.5 RBC 4.30 Hgb 13.3 Hct 43.4 MCV 100.9 H MCH 30.9 MCHC 30.6 RDW 13.3 Plt Count 330 MPV 10.5 H Neut % (Auto) 36.0 Lymph % (Auto) 46.5 [place] % (Auto) 13.6 Eos % (Auto) 1.9 Baso % (Auto) 0.2 Neut # (Auto) 3.4 Lymph # (Auto) 4.4 [place] # (Auto) 1.3 H Eos # (Auto) 0.2 Baso # (Auto) 0.0 Nucleated RBC % (a uto) 0 Nucleated RBCs # 0.0 Sodium 137 Potassium 4.4 Chloride 91 L Carbon Dioxide 37 H Anion Gap 13.4 BUN 12 Creatinine 0.3 L GFR Calculation 233.6 H Glucose 89 Calcium 9.5 Total Bilirubin 0.2 AST 16 ALT 25 Alkaline Phosphata se 65 Total Protein 5.9 L Albumin 4.1 Globulin 1.8 Vitals: Last Vital Signs Temp 97.3 F L 05/02/19 11:16 Pulse 118 H 05/02/19 11:16 Resp 26 H 05/02/19 11:16 BP 108/56 05/02/19 11:16 Pulse Ox 97 05/02/19 11:16 Discharge Plan Discharge Patient Disposition: Home Health Service Condition: Stable Prescriptions: New Xanax 0.25 mg tablet 0.25 mg PO BID PRN (Reason: anxiety) 2 Days Qty: 6 RF: 0 enoxaparin [Lovenox] 40 mg/0.4 mL Syringe 40 mg SUBCUT Q24H 7 Days Qty: 2.8 RF: 0 Thera 400 mcg Tablet 1 tab PO DAILY Qty: 30 RF: 0 nicotine 21 mg/24 hr Patch 24 Hour 1 patch transdermal DAILY 30 Days Qty: 30 RF: 0 thiamine mononitrate (vit B1) [Vitamin B-1 (mononitrate)] 100 mg Tablet 100 mg PO DAILY 30 Days Qty: 30 RF: 0 prednisone 20 mg Tablet 60 mg PO DIRECTED 12 Days Qty: 20 RF: 0 dextromethorphan-guaifenesin 10-100 mg/5 mL Syrup 10 ml PO Q4H PRN (Reason: Cough) 5 Days Qty: 100 RF: 0 levofloxacin [Levaquin] 750 mg tablet 750 mg PO DAILY 5 Days Qty: 5 RF: 0 Nicotrol NS 10 mg/mL spray,non-aerosol 1 spray INTRANASAL Q30M PRN (Reason: nicotine cravings) Qty: 40 RF: 0 Continued paroxetine HCl [Paxil] 10 mg Tablet 10 mg PO DAILY RF: 0 oxycodone 15 mg Tablet 15 mg PO Q4H PRN (Reason: Pain, Severe) RF: 0 folic acid 1 mg Tablet 1 mg PO DAILY RF: 0 montelukast [Singulair] 10 mg Tablet 10 mg PO DAILY RF: 0 imipramine HCl 10 mg Tablet 10 mg PO DAILY RF: 0 cholecalciferol (vitamin D3) 5,000 unit Capsule 5,000 unit PO DAILY RF: 0 fluticasone propionate 110 mcg/actuation Hfa Aerosol Inhaler 2 puff INHALATION BID RF: 0 Daliresp 500 mcg Tablet 500 mcg PO DAILY RF: 0 glycopyrrolate-formoterol 9-4.8 mcg Hfa Aerosol Inhaler 2 puff INHALATION BID RF: 0 fluticasone furoate 27.5 mcg/actuation [place],Suspension 1 spray INTRANASAL DAILY Qty: 9.1 RF: 0 albuterol sulfate [Proventil HFA] 90 mcg/actuation Hfa Aerosol Inhaler 2 puff INHALATION QID Qty: 8 RF: 0 Discharge Orders: Discharge Order (Routine); Ordered 05/02/19 Ordered By: Kuldeep Nielson Other Ambulatory Orders: Miscellaneous Procedure (Order) Location: None Selected Ordered By: Kuldeep Nielson Referrals: CARDIOLOGY [Provider Group] - 2 weeks (Chronic tachycardia) Arnaldo Pimentel FNP-C [Primary Care Provider] - 4-7 days Tino Blue MD [Physician] - 2 weeks Discharge Activity: Oxygen as instructed Activity Restrictions/Additional Instructions: Continue oxygen at home according to home O2 evaluation. Goal saturation 88- 92%. If you experience worsening shortness of breath, chest pain, or other abnormal symptoms please seek medical attention. Please stop smoking. Please reduce alcohol intake, avoid entirely, or down to at most 1 drink per day. Discharge Attestations Time Spent in Discharge Care*: greater than 30 min Quality Metrics Clinical Quality Measures During this hospital stay, did patient experience: None Coding Level of Care Code Acute Clinical Product Specialist for Kaylah Bach Diagnoses Acute and chronic respiratory failure ([id number]) J96.20 COPD exacerbation J44.1 INOCENCIO (obstructive sleep apnea) G47.33 Smoking addiction F17.200 Alcohol consumption of more than two drinks per day Z78.9
[2019-05-02] MEDS: enoxaparin 40 mg/0.4 mL Syringe SUBCUT (12:10)
--- NOTE | 2019-05-02 15:00 | PC.NURSE ---
discharged via w/c to exit at this time
--- NOTE | 2019-05-03 10:53 | PC.SOCIAL ---
pharmacy called from [facility] (Angelica) she needed to clarify the Thera 400mcg tablet that tranmitted to be filled at [facility]. This nurse unable to determine what med this is. Process of elimination thought was the multivitamin that patient was taking once daily in house but dose is not listed. Call placed to inpatient pharmacy and same response they suspect this is also the multivitamin but unable to be sure. Asked Dr Nielson to call this nurse. Pt was dc'd yesterday. Physician called back and indicated it was the multivitamin pt was getting in house but not sure about the MCG dose pulling in. Updated Angelica at [facility] per Dr Nielson patient is to take one womens multivitamin tablet daily. Also reported to [facility] team to look at how med is pulling over at [facility].
== END 2019-05-02 15:01 | disposition home health service (06) | DRG 189 ==
PROVIDERS: Admitting Provider Internal Medicine; Family Provider Nurse Practitioner; PCP Nurse Practitioner; Referring Provider Internal Medicine; Visit Provider Internal Medicine
DX: J96.21 Acute and chronic respiratory failure with hypoxia (principal); J44.1 Chronic obstructive pulmonary disease with (acute) exacerbation; F10.239 Alcohol dependence with withdrawal, unspecified; J96.22 Acute and chronic respiratory failure with hypercapnia; Z99.81 Dependence on supplemental oxygen; G47.33 Obstructive sleep apnea (adult) (pediatric); F17.210 Nicotine dependence, cigarettes, uncomplicated; M81.0 Age-related osteoporosis without current pathological fracture; G89.29 Other chronic pain; F41.9 Anxiety disorder, unspecified; Z79.891 Long term (current) use of opiate analgesic; Z79.51 Long term (current) use of inhaled steroids; R00.0 Tachycardia, unspecified
CPT/HCPCS: 36415; 36416; 36600; 71045; 71275; 80048; 80053; 81001; 82803; 82962; 83605; 83735; 84484; 85025; 85610; 85730; 87040; 87070; 87086; 87205; 87804; 93005; 94640; 94660; 94762; 96361; 96372; 96374; 97161; 97530; 99223; 99232; 99285; J0692; J1650; J1956; J2060; J2930; J3411; J7512; Q0162; Q9967

== ENCOUNTER → 2020-01-12 11:25 | Outpatient (BNVA) | payer MEDICARE, MEDICAID, SELFPAY | PROVIDERS: Family Provider Nurse Practitioner; PCP Nurse Practitioner; Visit Provider Nurse Practitioner | DX: J44.1 Chronic obstructive pulmonary disease with (acute) exacerbation (principal); J43.1 Panlobular emphysema | CPT/HCPCS: 71046; 80053; 85025 ==

== ENCOUNTER → 2020-09-05 11:47 | Outpatient (BNVA) | payer MEDICARE, MEDICAID, SELFPAY | PROVIDERS: Family Provider Nurse Practitioner; PCP Nurse Practitioner; Visit Provider Nurse Practitioner | DX: Z13.6 Encounter for screening for cardiovascular disorders (principal); J43.1 Panlobular emphysema; F41.9 Anxiety disorder, unspecified; J30.1 Allergic rhinitis due to pollen | CPT/HCPCS: 80053; 80061; 84443; 85025 ==

== ENCOUNTER 2020-09-09 10:21 | Observation (INO) | payer MEDICARE, MEDICAID, SELFPAY ==
[2020-09-09] VITALS (18 sets, daily range): BP systolic 102–133; BP diastolic 66–83; PULSE 54–123; RESP 17–28; TEMP 36.9–37.3; O2SAT 91–98; BMI 23.0
--- NOTE | 2020-09-09 10:29 | XRR_ITS ---
PROCEDURE INFORMATION: Exam: XR Chest Exam date and time: 09/09/2020 10:43 AM Age: 55 years old Clinical indication: Patient HX: Productive cough; Additional info: Dyspnea/cough TECHNIQUE: Imaging protocol: XR of the chest. Views: 1 view. COMPARISON: CR XR chest 2V* [id number] 01/12/2020 11:29 AM FINDINGS: Tubes, catheters and devices: Right clavicular surgical plate. Lungs: Bilateral hilar to lower lobe atelectasis versus minimal infiltrate. Pleural spaces: Right costophrenic angle scarring versus trace effusion. Heart/Mediastinum: Unremarkable. No cardiomegaly. Bones/joints: Several bilateral chronic rib fractures. XR/XR chest 1V portable [id number] IMPRESSION: 1. Bilateral hilar to lower lobe atelectasis versus minimal infiltrate. 2. Right clavicular surgical plate. 3. Right costophrenic angle scarring versus trace effusion.
--- NOTE | 2020-09-09 10:30 | ECG_ITS ---
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 Measurements Intervals [place] Rate: 119 P: 83 CO: 116 QRS: 66 QRSD: 102 T: 73 QT: 320 QTc: 451 Interpretive Statements SINUS TACHYCARDIA WITH SHORT CO INTERVAL INCOMPLETE RIGHT BUNDLE BRANCH BLOCK [90+ ms QRS DURATION, TERMINAL R IN V1/V2, 40+ ms S IN I/aVL/V4/V5/V6] ABNORMAL RHYTHM ECG INTERPRETATION BASED ON A DEFAULT AGE OF 40 YEARS Compared to ECG 05/01/2019 10:03:20 Short CO interval now present Electronically Signed On 09-09-2020 14:48:06 CDT by Haydee Smith M.D. [id number] f
[2020-09-09 10:43] LABS: Basophils # 0.1 10^3/uL (0.0-0.1); Basophils % 0.8 %; Eosinophils # 0.1 10^3/uL (0.0-0.8); Eosinophils % 0.6 %; Hematocrit 46.9 % (37.0-47.0); Hemoglobin 14.5 g/dL (11.5-15.3); Lymphocytes # 1.2 10^3/uL (0.8-4.8); Lymphocytes % 12.1 %; Mean Corpuscular HGB Conc 30.9 g/dL (30.0-36.0); Mean Corpuscular Hemoglobin 31.7 pg (28.0-34.0); Mean Corpuscular Volume 102.4 fL (81-99); Mean Platelet Volume 10.3 fL (7.4-10.4); Monocytes # 0.8 10^3/uL (0.2-0.9); Monocytes % 7.9 %; Neutrophils # 7.54 10^3/uL (1.8-7.7); Neutrophils % 77.9 %; Nucleated Red Blood Cells % 0 %; Platelet Count 312 10^3/cmm (130-400); Red Blood Count 4.58 10^6/uL (4.1-5.3); Red Cell Distribution Width 12.9 % (12.1-15.1); White Blood Count 9.7 10^3/uL (4.0-10.0)
--- NOTE | 2020-09-09 10:43 | ED_ITS ---
HPI - SOB/Dyspnea General: Chief Complaint: Shortness of Breath/Dyspnea Stated Complaint: SOB Time Seen by Provider: 09/09/20 10:23 History of Present Illness: HPI Narrative: 55-year-old female with a history of COPD still smokes 2 packs/day is on oxygen at home. She was on 4 L by nasal cannula on her arrival EMS reports she was 81%. She reports increasing shortness of breath particularly bad overnight. She has her usual baseline moderately productive cough with no significant change denies fever. Patient was given 125 Solu-Medrol and a nebulizer treatment in route is doing somewhat better on arrival here she denies chest or abdominal pain. Reviewing in [facility] she was seen on 09/05/2020 by a nurse practitioner was given triamcinolone IM at that time according to pharmacy records was prescribed Levaquin p.o. Patient endorses this she says she got it filled on Fri 3 days ago 3 doses at this point. MD elicited complaint: shortness of breath and cough Pertinent past history: COPD Onset (ago): hour(s) Timing: constant Severity: moderate Exacerbating factors: exertion and coughing Relieving factors: oxygen, rest, bronchodilators and upright position Known history of: COPD Associated symptoms: Reports chest congestion and cough; Deny abdominal pain, chest pain, diaphoresis, dizziness, extremity pain, fever(s), hemoptysis, lightheadedness, myalgias, nausea, orthopnea, palpitations, paresthesias, polydipsia, polyuria, rash, sense of impending doom, syncope or vomiting Treatment prior to arrival: oxygen, bronchodilator and other (Steroids) Review of Systems Const: Denies: fever(s) or diaphoresis ENMT: Denies: throat pain, ear or mastoid pain, nasal discharge or nasal congestion Card: Denies: chest pain, palpitations, lightheadedness, syncope or orthopnea Resp: Reports: chest congestion; Denies: hemoptysis GI: Denies: abdominal pain, nausea or vomiting : Denies: flank pain, difficulty voiding, dysuria, urinary frequency or urinary urgency Musc: Denies: extremity pain Skin/Breast: Denies: rash or pruritus Neuro: Denies: dizziness Endo: Denies: polyuria or polydipsia PFSH ED PFSH: Medical History Allergic rhinitis due to pollen Anxiety Atherosclerosis Chronic respiratory failure with hypoxia and hypercapnia COPD (chronic obstructive pulmonary disease) History of mammogram 2018 INOCENCIO (obstructive sleep apnea) Osteoarthritis Osteoporosis Pelvic fracture 2018 Personal history of nicotine dependence Rib fracture 2018 Sinusitis Spinal fracture Vitamin D deficiency Surgical History Clavicle fracture H/O adenoidectomy History of appendectomy 1985 History of right shoulder fracture April 2017 Hx of hysterectomy Hx of tonsillectomy Hx of tubal ligation Family History Mother Cancer COPD exacerbation Asthma Father Cancer Social History (Updated 09/09/20 @ 21:04 by Sunshine Bustamante MD) Smoking and tobacco status: current every day smoker cigarettes Packs smoked per day: 2 Years cigarettes smoked: 40 Second hand smoke exposure: Yes Alcohol intake: current Alcohol intake frequency: 0-2 Drinks per Day Desire information about alcohol rehabilitation?: No Desire information about substance/drug rehabilitation?: No Adopted: No Caregiver/support person: No Lives independently: Yes Household members: spouse Housing: House Marital status: Number of children: 2 service: No Current occupational status: unemployed and disabled History of recent travel: No Current gender identity: Female Physical Exam Const: COMMON NORMALS: no acute distress GENERAL APPEARANCE: cooperative and comfortable ORIENTATION/CONSCIOUSNESS: Yes awake, Yes oriented to person, Yes oriented to place and Yes oriented to time HENMT: COMMON NORMALS: normocephalic, atraumatic and hearing grossly normal bilaterally HEAD & SCALP: normocephalic and atraumatic Neck/C-Spine: COMMON NORMALS: no JVD Resp: EFFORT & INSPECTION: Yes abnormal respiratory pattern, Yes tachypneic, Yes pursed lip breathing and Yes labored AUSCULTATION: rhonchi, wheezes and diminished lung sounds Cardio: COMMON NORMALS: no JVD, regular rhythm and No murmurs present (Cardio) RATE: tachycardic RHYTHM: regular rhythm GI: COMMON NORMALS: Soft to palpation and No hepatosplenomegaly present AUSCULTATION: Yes normoactive bowel sounds PALPATION: Yes Soft to palpation, No Tenderness to palpation present (GI), No Guarding due to palpation present (GI) and Yes No hepatosplenomegaly present Extremity: COMMON NORMALS: normal to inspection, capillary refill normal, no clubbing, cyanosis or edema, no calf tenderness and no pedal edema Neuro: SENSORIUM/ORIENTATION: Yes oriented to person, Yes oriented to place and Yes oriented to time Skin: COMMON NORMALS: no rashes or lesions noted GENERAL SKIN EXAM: no rashes or lesions noted Course Vital Signs: Vital signs: Vital Signs Temperature 98.7 F 09/10/20 17:36 Pulse Rate 99 09/10/20 17:36 Respiratory Rate 18 09/10/20 17:36 Blood Pressure 118/69 09/10/20 17:36 Pulse Oximetry 94 09/10/20 17:36 MDM - SOB/Dyspnea MDM Narrative: Medical decision making narrative: Patient improved with BiPAP less work of breathing. We will repeating a blood gas now. Will admit for exacerbation COPD. Patient admits she is not compliant with her Trelegy Ellipta that is playing a role in this. Will discuss with hospitalist orders written. Lab Data: Labs: Lab Results 09/09/20 09/09/20 09/09/20 Range/Units 10:36 10:36 10:36 WBC 9.7 (4.0-10.0) 10^3/ uL RBC 4.58 (4.1-5.3) 10^6/u L Hgb 14.5 (11.5-15.3) g/dL Hct 46.9 (37.0-47.0) % MCV 102.4 H (81-99) fL MCH 31.7 (28.0-34.0) pg MCHC 30.9 (30.0-36.0) g/dL RDW 12.9 (12.1-15.1) % Plt Count 312 (130-400) 10^3/c mm MPV 10.3 (7.4-10.4) fL Neut % (Auto) 77.9 % Lymph % (Auto) 12.1 % [place] % (Auto) 7.9 % Eos % (Auto) 0.6 % Baso % (Auto) 0.8 % Neut # (Auto) 7.54 (1.8-7.7) 10^3/u L Lymph # (Auto) 1.2 (0.8-4.8) 10^3/u L [place] # (Auto) 0.8 (0.2-0.9) 10^3/u L Eos # (Auto) 0.1 (0.0-0.8) 10^3/u L Baso # (Auto) 0.1 (0.0-0.1) 10^3/u L Nucleated RBC % (a uto) 0 % Nucleated RBCs # 0.0 /100WBC Specimen Type Sample Site ABG pH (7.35-7.45) ABG pCO2 (35-45) mmHg ABG pO2 (80.0-100.0) mmH g ABG HCO3 (22-26) mmol/L ABG O2 Saturation ABG Base Excess (-2.0-2.0) mmol/ L Hans Test A-a O2 Gradient (5-10) mmHg Hematocrit (37-47) % Hgb O2 Saturation (95-100) % Carboxyhemoglobin (0.4-20.1) %THgb Methemoglobin (0.4-1.5) % Total Hemoglobin (12-16) g/dL Ionized Calcium (1.1-1.4) mmol/L O2 Delivery Device O2 Liters/Min % FiO2 % Psychological Tests Sales Agent ID Sodium 143 (136-145) mmol/L Potassium 4.2 (3.5-5.1) mmol/L Chloride 96 L (98-107) mmol/L Carbon Dioxide 40 H (22-29) mmol/L Anion Gap 11.2 (5-19) BUN 7 (6-20) mg/dL Creatinine 0.2 L (0.5-0.9) mg/dL GFR Calculation 370.1 H (90-130) mL/min Glucose 130 H (65-115) mg/dL Calculated Osmolal ity 296 H (285-295) mOsm/k g Calcium 8.7 (8.5-10.5) mg/dL Total Bilirubin 0.2 (0.15-1.2) mg/dL AST 13 (0-32) U/L ALT 13 (0-33) U/L Alkaline Phosphata se 91 (35-105) IU/L Creatine Kinase 26 (26-192) U/L Troponin T Baselin e 7 (0-10) ng/L Total Protein 7.0 (6.6-8.7) g/dL Albumin 4.1 (3.5-5.2) g/dL Globulin 2.9 (1.3-4.6) g/dL 09/09/20 Range/Units 10:48 WBC (4.0-10.0) 10^3/ uL RBC (4.1-5.3) 10^6/u L Hgb (11.5-15.3) g/dL Hct (37.0-47.0) % MCV (81-99) fL MCH (28.0-34.0) pg MCHC (30.0-36.0) g/dL RDW (12.1-15.1) % Plt Count (130-400) 10^3/c mm MPV (7.4-10.4) fL Neut % (Auto) % Lymph % (Auto) % [place] % (Auto) % Eos % (Auto) % Baso % (Auto) % Neut # (Auto) (1.8-7.7) 10^3/u L Lymph # (Auto) (0.8-4.8) 10^3/u L [place] # (Auto) (0.2-0.9) 10^3/u L Eos # (Auto) (0.0-0.8) 10^3/u L Baso # (Auto) (0.0-0.1) 10^3/u L Nucleated RBC % (a uto) % Nucleated RBCs # /100WBC Specimen Type Arterial Sample Site Radial, left ABG pH 7.37 (7.35-7.45) ABG pCO2 74.0 H* (35-45) mmHg ABG pO2 78.3 L (80.0-100.0) mmH g ABG HCO3 42.3 H (22-26) mmol/L ABG O2 Saturation 96.4 ABG Base Excess 13.3 H (-2.0-2.0) mmol/ L Hans Test Pos A-a O2 Gradient 11.9 H (5-10) mmHg Hematocrit 42.9 (37-47) % Hgb O2 Saturation 90.2 L (95-100) % Carboxyhemoglobin 5.6 (0.4-20.1) %THgb Methemoglobin 0.9 (0.4-1.5) % Total Hemoglobin 14.0 (12-16) g/dL Ionized Calcium 1.2 (1.1-1.4) mmol/L O2 Delivery Device Nc O2 Liters/Min 4.0 % FiO2 36.0 % Psychological Tests Sales Agent ID Ed Sodium 142.0 (136-145) mmol/L Potassium 4.6 (3.5-5.1) mmol/L Chloride (98-107) mmol/L Carbon Dioxide (22-29) mmol/L Anion Gap (5-19) BUN (6-20) mg/dL Creatinine (0.5-0.9) mg/dL GFR Calculation (90-130) mL/min Glucose 131.0 H (65-115) mg/dL Calculated Osmolal ity (285-295) mOsm/k g Calcium (8.5-10.5) mg/dL Total Bilirubin (0.15-1.2) mg/dL AST (0-32) U/L ALT (0-33) U/L Alkaline Phosphata se (35-105) IU/L Creatine Kinase (26-192) U/L Troponin T Baselin e (0-10) ng/L Total Protein (6.6-8.7) g/dL Albumin (3.5-5.2) g/dL Globulin (1.3-4.6) g/dL Discharge Plan Discharge Patient Disposition: Admitted As Inpatient Admit Provider: Sunshine Bustamante Clinical Impression: Acute exacerbation of chronic obstructive airways disease, Community acquired pneumonia Condition: Stable Discharge Diet: Advance as tolerated Discharge Activity: Resume usual activity Coding Level of Care Code ED Critical Care Unit Manager for Kaylah Fwd Exam Comprehensive
[2020-09-09 11:00] LABS: ABG PH Result 7.37 (7.35-7.45); Alveolar-Arterial Oxygen Gradi 11.9 mmHg (5-10); Arterial Blood Gas Hematocrit 42.9 % (37-47); Base Excess ABG 13.3 mmol/L (-2.0-2.0); Blood Gas Allen Test Pos; Blood Gas Operator Identificat ED; Blood Gas Sample Site Radial, left; Blood Gas Sample Type Arterial; HCO3 ABG 42.3 mmol/L (22-26); Oxygen Device NC; Oxygen Saturation ABG 96.4; PO2 ABG 78.3 mmHg (80.0-100.0); Potassium Level - ABG 4.6 mmol/L (3.5-5.0)
[2020-09-09 11:01] LABS: Carboxyhemoglobin 5.6 %THgb (0.4-20.1); HGB O2 Sat 90.2 % (95-100); Ionized Calcium Level - ABG 1.2 mmol/L (1.1-1.4); Methemoglobin 0.9 % (0.4-1.5)
[2020-09-09 11:03] LABS: Alanine Aminotransferase 13 U/L (0-33); Albumin Level 4.1 g/dL (3.5-5.2); Alkaline Phosphatase 91 IU/L (35-105); Anion Gap 11.2 (5-19); Aspartate Amino Transferase 13 U/L (0-32); Blood Urea Nitrogen 7 mg/dL (6-20); Calcium 8.7 mg/dL (8.5-10.5); Carbon Dioxide 40 mmol/L (22-29); Chloride 96 mmol/L (98-107); Creatine Phosphokinase 26 U/L (26-192); Globulin 2.9 g/dL (1.3-4.6); Glomerular Filtration Rate 370.1 mL/min (90-130); Glucose 130 mg/dL (65-115); Osmolality Calculated 296 mOsm/kg (285-295); Potassium 4.2 mmol/L (3.5-5.1); Sodium 143 mmol/L (136-145); Total Bilirubin 0.2 mg/dL (0.15-1.2)
[2020-09-09 11:04] LABS: Troponin(5th) Baseline 7 ng/L (0-10)
[2020-09-09] MEDS: levofloxacin-dextrose 5 % 750 MG/150 ML PREMIX 100 MG IV (11:49)
[2020-09-09 12:00] LABS: ABG PH Result 7.43 (7.35-7.45); Alveolar-Arterial Oxygen Gradi 19.2 mmHg (5-10); Arterial Blood Gas Hematocrit 42.3 % (37-47); Base Excess ABG 13.7 mmol/L (-2.0-2.0); Blood Gas Allen Test Pos; Blood Gas Operator Identificat ED; Blood Gas Sample Site Radial, right; Blood Gas Sample Type Arterial; HCO3 ABG 40.9 mmol/L (22-26); HGB O2 Sat 90.1 % (95-100); Ionized Calcium Level - ABG 1.2 mmol/L (1.1-1.4); Methemoglobin 0.5 % (0.4-1.5); Oxygen Device BIPAP; Oxygen Saturation ABG 95.3; PO2 ABG 65.3 mmHg (80.0-100.0); Potassium Level - ABG 4.1 mmol/L (3.5-5.0); Total Hemoglobin 13.8 g/dL (12-16)
[2020-09-09 12:01] LABS: ABG PCO2 61.4 mmHg (35-45)
--- NOTE | 2020-09-09 12:30 | ECG_ITS ---
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 Measurements Intervals [place] Rate: 106 P: 75 HI: 135 QRS: 67 QRSD: 102 T: 67 QT: 338 QTc: 449 Interpretive Statements SINUS TACHYCARDIA POSSIBLE LEFT ATRIAL ENLARGEMENT [-0.1mV P WAVE IN V1/V2] INCOMPLETE RIGHT BUNDLE BRANCH BLOCK [90+ ms QRS DURATION, TERMINAL R IN V1/V2, 40+ ms S IN I/aVL/V4/V5/V6] ABNORMAL RHYTHM ECG Compared to ECG 09/09/2020 10:29:46 Short HI interval no longer present Electronically Signed On 09-13-2020 7:10:10 CDT by Laury De Paz M.D. [email or web address]/[email or web address]/[id number]
[2020-09-09 13:03] LABS: Troponin 5 2HR 6.43 ng/L (0-10)
[2020-09-09 13:07] LABS: Troponin 5 2HR Delta -0.57 ABS# (0-10)
[2020-09-09] MEDS: D5-NS 0.45% + KCL 20 mEq 20 MEQ/1,000 ML BAG 100 MEQ IV (13:53)
--- NOTE | 2020-09-09 15:56 | PM.HP ---
Providers/Chief Complaint Admitting Physician: Sunshine Bustamante MD Primary Care Provider: Arnaldo Pimentel, MACHINE REPAIR PERSON-C Chief Complaint: SOB History of Present Illness Hilary Alegre is a 55 year old female who presented to the emergency room with chief complaint of increased difficulty breathing. She has known COPD. She is chronically on oxygen. She has a trilogy device at home. Does not always wear it because she has issues with the mask and tolerating it for more than a couple of hours at a time. She has been having increasing cough and difficulty breathing for the last week or so. She saw her primary care provider the other day and received some steroids and Levaquin. She has not been completely compliant with medications that were recommended for her though reports that she is doing better than she used to. She is chronically on 4 L of oxygen by nasal cannula. She did not use her trilogy machine last night and had an episode in which her breathing became much more severe. She eventually called EMS. Oxygen saturations by their report were around 80%. She received a breathing treatment, Solu-Medrol in route to the hospital. ABG was done revealing 0.3 . She was put on BiPAP. Imaging showed what appears to be atelectasis versus infiltrate bilaterally. She has not had any hemoptysis. Sputum production is not necessarily anymore though she does have increased nasal congestion. She has been using some Flonase. She denies fever or chills. Has not had any GI symptoms to speak of. She is being admitted for continuation of treatment and further monitoring. Review of Systems Const: Denies: fever(s), chills or change in weight Eyes: Denies: change in vision ENMT: Reports: nasal discharge and nasal congestion; Denies: throat pain Card: Reports: dyspnea on exertion; Denies: chest pain or palpitations Resp: Reports: dyspnea, productive cough, non-productive cough, wheezing and chest congestion; Denies: hemoptysis GI: Denies: abdominal pain, nausea, vomiting, diarrhea or constipation : Denies: difficulty voiding or hematuria Musc: Reports: back pain and extremity pain Skin/Breast: Denies: rash or pruritus Neuro: Denies: dizziness Psych: Reports: anxiety Medications/Allergies Home Medications Medication Instructions Recorded Confirmed Last Taken Type cholecalciferol (vitamin D3) 5,000 unit PO DAILY 04/27/19 09/09/20 09/08/20 History naproxen 500 mg tablet 500 mg PO BID PRN #60 tab 01/12/20 09/09/20 Unknown Rx nicotine 21 mg/24 hr daily 1 patch TRANSDERMA Q24H #28 each 01/12/20 09/09/20 Unknown Rx transdermal patch albuterol sulfate 90 mcg/actuation 2 inh INHALATION Q4H PRN #18 g 07/06/20 09/09/20 Unknown Rx aerosol inhaler fluticasone fur. 100 mcg-umeclid 1 inh INHALATION DAILY 30 Days #60 07/06/20 09/09/20 09/08/20 Rx 62.5 mcg-vilant 25 mcg ea inhalat.powder buspirone 10 mg tablet 10 mg PO BID #60 tab 09/06/20 09/09/20 09/08/20 Rx folic acid 1 mg tablet 1 mg PO DAILY #30 tab 09/06/20 09/09/20 09/08/20 Rx levofloxacin 500 mg tablet 500 mg PO Q24H #10 tab 09/06/20 09/09/20 09/08/20 Rx montelukast 10 mg tablet 10 mg PO DAILY #30 tab 09/06/20 09/09/20 09/08/20 Rx multivitamin with folic acid 400 1 tab PO DAILY #30 tab 09/06/20 09/09/20 09/08/20 Rx mcg tablet guizdanj-dimtav-GI-thonzonm 3.3 3 drp EAR-BOTH TID #10 ml 09/06/20 09/09/20 Unknown Rx mg-3 mg-10 mg-0.5 mg/mL ear drops,susp paroxetine HCl 10 mg tablet 10 mg PO DAILY #30 tab 09/06/20 09/09/20 09/08/20 Rx prednisone 10 mg tablet 10 mg PO DAILY #7 tab 09/06/20 09/09/20 09/08/20 Rx roflumilast 500 mcg tablet 500 mcg PO DAILY #30 tab 09/06/20 09/09/20 09/08/20 Rx fluticasone propionate 1 spray INTRANASAL DAILY PRN 09/09/20 09/09/20 Unknown History imipramine HCl 10 mg PO BID 09/09/20 09/09/20 09/08/20 History oxycodone 10 mg PO Q4H PRN 09/09/20 09/09/20 09/08/20 History Allergies Allergy/AdvReac Type Severity Reaction Status Date / Time cephalexin Allergy Intermediate ALGY-Hives Verified 07/06/20 12:03 PFSH Acute PFSH: Medical History Allergic rhinitis due to pollen Anxiety Atherosclerosis Chronic respiratory failure with hypoxia and hypercapnia COPD (chronic obstructive pulmonary disease) History of mammogram 2018 INOCENCIO (obstructive sleep apnea) Osteoarthritis Osteoporosis Pelvic fracture 2018 Personal history of nicotine dependence Rib fracture 2018 Sinusitis Spinal fracture Vitamin D deficiency Surgical History Clavicle fracture H/O adenoidectomy History of appendectomy 1985 History of right shoulder fracture April 2017 Hx of hysterectomy Hx of tonsillectomy Hx of tubal ligation Family History Mother Cancer COPD exacerbation Asthma Father Cancer Social History (Updated 09/09/20 @ 21:04 by Sunshine Bustamante MD) Smoking and tobacco status: current every day smoker cigarettes Packs smoked per day: 2 Years cigarettes smoked: 40 Second hand smoke exposure: Yes Alcohol intake: current Alcohol intake frequency: 0-2 Drinks per Day Desire information about alcohol rehabilitation?: No Desire information about substance/drug rehabilitation?: No Adopted: No Caregiver/support person: No Lives independently: Yes Household members: spouse Housing: House Marital status: Number of children: 2 service: No Current occupational status: unemployed and disabled History of recent travel: No Current gender identity: Female Vitals/I&O/Wt Last Vital Signs Temp 98.4 F 09/09/20 15:30 Pulse 90 09/09/20 15:30 Resp 18 09/09/20 15:30 BP 131/81 09/09/20 15:30 Pulse Ox 92 09/09/20 15:30 09/09/20 09/09/20 09/09/20 06:59 14:59 22:59 Intake Total 150 / 150 Balance 150 / 150 Weight last 48 hrs Weight 53.524 kg Physical Exam Narrative: EXAM NARRATIVE: Constitutional: Thin built, awake and alert HEENT: Pupils equally round and reactive nasopharynx with clear rhinorrhea, sounds like nasal congestion, oropharynx with dry mucous membranes Neck: Supple Respiratory: Wheezes noted throughout both lungs but chest expansion is equal bilaterally Cardiovascular: Regular tachycardic rhythm Abdomen: Soft, nontender : Deferred Extremities: No pitting edema Skin: Dry, chronic sun exposure/brawny appearance Neuro: Speech clear, slight intention tremor, handgrip equal, moves all extremities Psych: Normal affect, asks good questions Data : 09/09/20 10:36 09/09/20 10:36 Micro: Microbiology 09/09/20 10:50 Gram Stain - Final Sputum - Expectorated Sputum A&P Assessment and plan (1) Acute exacerbation of chronic obstructive airways disease: With acute on chronic hypoxic and hypercapnic respiratory failure Status: Acute (2) Community acquired pneumonia: Chronically difficult to rule out community-acquired pneumonia. She has improved so rapidly that I suspect abnormalities may have been more related to atelectasis. Blood count is normal. No fever. Has already been started on antibiotics prior to admission. Status: Acute (3) Anxiety: Status: Chronic (4) INOCENCIO (obstructive sleep apnea): Status: Chronic (5) Allergic rhinitis due to pollen: Status: Chronic (6) Nicotine addiction: Status: Chronic (7) Osteoarthritis: Chronically on oxycodone for pain Status: Chronic Additional A&P Information Has 2 or fewer daily drinks Observation admission for now given rapid improvement with treatment initiated Continue Levaquin that was initiated just a day or 2 ago in the outpatient setting Breathing treatments including inhaled steroids Steroids BiPAP Continue current oxygenation Check procalcitonin Continue home Daliresp Home medications have been addressed Nicotine patch has been added Patient had several questions about various anxiety medications. She really wanted to get back on Xanax but explained to her that that is not ideal in the setting of chronic hypercapnia. She had not started the BuSpar but is willing to try it. She has also not started imipramine that was recently initiated. She is on Paxil chronically. She had questions about several other medications. Flonase, will increase to twice daily dosing Continue home oxycodone PPI Lovenox for DVT prophylaxis Will see how she does moving around consistent with her usual activities tomorrow and make further determination of necessary plans of care. Plans were discussed with patient and she was given an opportunity to ask questions Full code Attestations Medical Necessity Statement*: Currently anticipated stay less than 2 midnights in a patient who rapidly improved with treatment in the emergency room. Plans are as noted above. 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
--- NOTE | 2020-09-09 16:05 | PC.NURSE ---
PTS FAMILY TOOK HOME ALL OF PTS HOME MEDS
--- NOTE | 2020-09-09 16:30 | ECG_ITS ---
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 Measurements Intervals [place] Rate: 106 P: 76 KS: 138 QRS: 69 QRSD: 96 T: 70 QT: 344 QTc: 458 Interpretive Statements SINUS TACHYCARDIA POSSIBLE RIGHT ATRIAL ENLARGEMENT [0.25mV P WAVE] POSSIBLE LEFT ATRIAL ENLARGEMENT [-0.1mV P WAVE IN V1/V2] POSSIBLE RIGHT VENTRICULAR CONDUCTION DELAY [RSR (QR) IN V1/V2] Compared to ECG 09/09/2020 12:57:30 Incomplete right bundle-branch block no longer present Electronically Signed On 09-13-2020 7:08:54 CDT by Laury De Paz M.D. [id number]
[2020-09-09 17:21] LABS: Troponin 5 6HR 6.66 ng/L (0-10)
[2020-09-09 17:28] LABS: Troponin 5 6HR Delta -0.34 ng/L (0-12)
[2020-09-09] MEDS: ipratropium-albuterol 3 mL Neb INHALATION ×2 (17:34→20:18)
[2020-09-09] MEDS: nicotine 21 mg Patch 1 PATCH TRANSDERMA (18:20)
[2020-09-09] MEDS: oxyCODONE 5 mg IR Tab/Cap 10 MG PO ×2 (18:24→22:26)
[2020-09-09] MEDS: budesonide 0.5 mg/2 mL Neb INHALATION (20:18)
[2020-09-09] MEDS: acetaminophen 325 mg Tablet 650 MG PO (21:16)
[2020-09-09] MEDS: enoxaparin 40 mg/0.4 mL Syringe SUBCUT (21:18)
[2020-09-09] MEDS: fluticasone nasal spray 16gm Btl 2 SPRAY INTRANASAL (21:49)
[2020-09-10] VITALS (19 sets, daily range): BP systolic 110–118; BP diastolic 64–72; PULSE 92–124; RESP 15–20; TEMP 36.7–37.1; O2SAT 92–98
[2020-09-10] MEDS: ipratropium-albuterol 3 mL Neb INHALATION ×4 (02:43→15:05)
[2020-09-10] MEDS: oxyCODONE 5 mg IR Tab/Cap 10 MG PO ×4 (02:57→16:11)
[2020-09-10 04:55] LABS: Basophils # 0.1 10^3/uL (0.0-0.1); Basophils % 0.6 %; Eosinophils % 0.4 %; Hematocrit 42.3 % (37.0-47.0); Hemoglobin 13.1 g/dL (11.5-15.3); Lymphocytes # 2.8 10^3/uL (0.8-4.8); Lymphocytes % 27.3 %; Mean Corpuscular Hemoglobin 31.8 pg (28.0-34.0); Mean Corpuscular Volume 102.7 fL (81-99); Mean Platelet Volume 10.8 fL (7.4-10.4); Monocytes # 1.4 10^3/uL (0.2-0.9); Monocytes % 13.8 %; Neutrophils # 5.79 10^3/uL (1.8-7.7); Neutrophils % 56.8 %; Nucleated Red Blood Cells % 0 %; Platelet Count 324 10^3/cmm (130-400); Red Blood Count 4.12 10^6/uL (4.1-5.3); Red Cell Distribution Width 12.7 % (12.1-15.1); White Blood Count 10.2 10^3/uL (4.0-10.0)
[2020-09-10 05:23] LABS: Procalcitonin 0.04 ng/mL (0-0.5)
[2020-09-10 05:37] LABS: Alanine Aminotransferase 12 U/L (0-33); Albumin Level 3.7 g/dL (3.5-5.2); Alkaline Phosphatase 78 IU/L (35-105); Anion Gap 11.8 (5-19); Aspartate Amino Transferase 12 U/L (0-32); Blood Urea Nitrogen 8 mg/dL (6-20); Calcium 8.6 mg/dL (8.5-10.5); Carbon Dioxide 36 mmol/L (22-29); Chloride 95 mmol/L (98-107); Globulin 2.9 g/dL (1.3-4.6); Glomerular Filtration Rate 370.1 mL/min (90-130); Glucose 84 mg/dL (65-115); Osmolality Calculated 286 mOsm/kg (285-295); Potassium 3.8 mmol/L (3.5-5.1); Sodium 139 mmol/L (136-145); Total Bilirubin 0.2 mg/dL (0.15-1.2); Total Protein 6.6 g/dL (6.6-8.7)
[2020-09-10] MEDS: levoFLOXacin 750 mg Tablet PO (06:19)
[2020-09-10] MEDS: budesonide 0.5 mg/2 mL Neb INHALATION (08:01)
[2020-09-10] MEDS: fluticasone nasal spray 16gm Btl 2 SPRAY INTRANASAL (08:19)
[2020-09-10] MEDS: BuSPIRONE 10 mg Tablet PO (08:20)
[2020-09-10] MEDS: pantoprazole DR 40 mg Tablet PO (08:20)
[2020-09-10] MEDS: PARoxetine 20 mg Tablet 10 MG PO (08:20)
[2020-09-10] MEDS: multivitamin therapeutic Tablet 1 TAB PO (08:20)
[2020-09-10] MEDS: roflumilast 500 mcg Tablet PO (08:21)
[2020-09-10] MEDS: predniSONE 20 mg Tablet 40 MG PO (08:21)
[2020-09-10] MEDS: montelukast sodium 10 mg Tablet PO (08:21)
--- NOTE | 2020-09-10 08:40 | PC.NURSE ---
Shift Assessment Patient resting in bed, requesting pain medication for back pain at an 8 on 0-10 pain scale. Pain medication Oxy IR administered per orders. Mild shortness of breath observed, patient reports that this is her baseline. IVF not running, patient reports that IV was causing her pain and when checked overnight had shooting pains. IV site observed and attempted to flush is NS, IV infiltrated. IV site discontinued. Patient request that new IV not be started yet as she thinks she might go home today, states that she feels much better than when she came in.
[2020-09-10] MEDS: acetaminophen 325 mg Tablet 650 MG PO (10:04)
--- NOTE | 2020-09-10 16:06 | PM.DCS ---
Discharge Providers Date of Admission: 09/09/20 11:42 Date of Discharge: September 10, 2020 Attending Provider at Admission: Sunshine Bustamante MD Attending Provider at Discharge: Sunshine Bustamante MD Primary Care Provider: JACK Galdamez Diagnoses at Discharge Discharge Diagnosis (1) Acute exacerbation of chronic obstructive airways disease: Status: Acute (2) Community acquired pneumonia: Status: Ruled-out (3) Anxiety: Status: Chronic (4) INOCENCIO (obstructive sleep apnea): Status: Chronic (5) Allergic rhinitis due to pollen: Status: Chronic (6) Nicotine addiction: Status: Chronic (7) Osteoarthritis: Status: Chronic Reason for Visit Reason for Visit: SOB Hospital Course Hospital Course Mrs. Alegre presented with increasing difficulty breathing. Symptoms began a couple of days prior to admission. She had been treated with Levaquin and steroids. She had an episode in which her breathing became acutely worse. She called for EMS. Saturations were low upon arrival. She improved some with Solu-Medrol and breathing treatment in route. She was placed on BiPAP here. She has a home trilogy device but has not gotten to where she can use it all the time. She was not wearing it the evening prior to admission. She states that the mask does not fit her well. Encouraged her to wear it as long as she can each night and explained that it would be a gradual process rather than one where she can get through the night wearing it instantly. She is chronically on 4 L of oxygen. She was able to be weaned back to her usual amount of oxygen. Initial thought was that patient may have community-acquired pneumonia. Procalcitonin however was normal. She improved quite quickly and I suspect this is COPD exacerbation exacerbated by increased rhinorrhea from allergies. Findings on chest x-ray likely represented atelectasis instead of infiltrate. She is to continue the Levaquin and Flonase that were recently started. I added Claritin to Singulair that she is already taking. I also increased the prednisone from 10 mg a day t0 50 mg a day for the next 5 days. At the time of discharge, patient was able to talk in full sentences taking occasional breaths. She had scattered wheezes. She had productive cough which she reports was her baseline cough. She had a regular tachycardic rhythm. No edema was noted. She was able to walk to the bathroom and back without significant increase in shortness of breath or significant drop in oxygen level while wearing oxygen. Patient has an appointment with Dr. Blue on Friday and can follow-up with Arnaldo Pimentel as well. Discharge Data Data Completed and Pending: Completed Studies During Hospitalization Category Date Time Status XR chest 1V fish ble [id number] Stat Exams 09/09/20 10:29 Completed Pending at discharge Category Date Time Status Sputum Culture an d Gram Stain Stat Lab 09/09/20 10:50 Results Laboratory Results WBC 10.2 10^3/uL (4.0 -10.0) H 09/10/20 03:50 RBC 4.12 10^6/uL (4.1 -5.3) 09/10/20 03:50 Hgb 13.1 g/dL (11.5-1 5.3) 09/10/20 03:50 Hct 42.3 % (37.0-47.0 ) 09/10/20 03:50 MCV 102.7 fL (81-99) H 09/10/20 03:50 MCH 31.8 pg (28.0-34. 0) 09/10/20 03:50 MCHC 31.0 g/dL (30.0-3 6.0) 09/10/20 03:50 RDW 12.7 % (12.1-15.1 ) 09/10/20 03:50 Plt Count 324 10^3/cmm (130 -400) 09/10/20 03:50 MPV 10.8 fL (7.4-10.4 ) H 09/10/20 03:50 Neut % (Auto) 56.8 % 09/10/20 03:50 Lymph % (Auto) 27.3 % 09/10/20 03:50 Imperial % (Auto) 13.8 % 09/10/20 03:50 Eos % (Auto) 0.4 % 09/10/20 03:50 Baso % (Auto) 0.6 % 09/10/20 03:50 Neut # (Auto) 5.79 10^3/uL (1.8 -7.7) 09/10/20 03:50 Lymph # (Auto) 2.8 10^3/uL (0.8- 4.8) 09/10/20 03:50 Imperial # (Auto) 1.4 10^3/uL (0.2- 0.9) H 09/10/20 03:50 Eos # (Auto) 0.0 10^3/uL (0.0- 0.8) 09/10/20 03:50 Baso # (Auto) 0.1 10^3/uL (0.0- 0.1) 09/10/20 03:50 Nucleated RBC % (a uto) 0 % 09/10/20 03:50 Nucleated RBCs # 0.0 /100WBC 09/10/20 03:50 Specimen Type Arterial 09/09/20 11:50 Sample Site Radial, right 09/09/20 11:50 ABG pH 7.43 (7.35-7.45) 09/09/20 11:50 ABG pCO2 61.4 mmHg (35-45) H* 09/09/20 11:50 ABG pO2 65.3 mmHg (80.0-1 00.0) L 09/09/20 11:50 ABG HCO3 40.9 mmol/L (22-2 6) H 09/09/20 11:50 ABG O2 Saturation 95.3 09/09/20 11:50 ABG Base Excess 13.7 mmol/L (-2.0 -2.0) H 09/09/20 11:50 Hans Test Pos 09/09/20 11:50 A-a O2 Gradient 19.2 mmHg (5-10) H 09/09/20 11:50 Hematocrit 42.3 % (37-47) 09/09/20 11:50 Hgb O2 Saturation 90.1 % (95-100) L 09/09/20 11:50 Carboxyhemoglobin 5.0 %THgb (0.4-20 .1) 09/09/20 11:50 Methemoglobin 0.5 % (0.4-1.5) 09/09/20 11:50 Total Hemoglobin 13.8 g/dL (12-16) 09/09/20 11:50 Sodium 140.0 mmol/L (131 -143) 09/09/20 11:50 Potassium 4.1 mmol/L (3.5-5 .0) 09/09/20 11:50 Glucose 139.0 mg/dL (70-1 15) H 09/09/20 11:50 Ionized Calcium 1.2 mmol/L (1.1-1 .4) 09/09/20 11:50 O2 Delivery Device Bipap 09/09/20 11:50 O2 Liters/Min 4.0 % 09/09/20 10:48 FiO2 40.0 % 09/09/20 11:50 Cushion Mat Maker ID Ed 09/09/20 11:50 Sodium 139 mmol/L (136-1 45) 09/10/20 03:50 Potassium 3.8 mmol/L (3.5-5 .1) 09/10/20 03:50 Chloride 95 mmol/L (98-107 ) L 09/10/20 03:50 Carbon Dioxide 36 mmol/L (22-29) H 09/10/20 03:50 Anion Gap 11.8 (5-19) 09/10/20 03:50 BUN 8 mg/dL (6-20) 09/10/20 03:50 Creatinine 0.2 mg/dL (0.5-0. 9) L 09/10/20 03:50 GFR Calculation 370.1 mL/min (90- 130) H 09/10/20 03:50 Glucose 84 mg/dL (65-115) 09/10/20 03:50 Calculated Osmolal ity 286 mOsm/kg (285- 295) 09/10/20 03:50 Calcium 8.6 mg/dL (8.5-10 .5) 09/10/20 03:50 Total Bilirubin 0.2 mg/dL (0.15-1 .2) 09/10/20 03:50 AST 12 U/L (0-32) 09/10/20 03:50 ALT 12 U/L (0-33) 09/10/20 03:50 Alkaline Phosphata se 78 IU/L (35-105) 09/10/20 03:50 Creatine Kinase 26 U/L (26-192) 09/09/20 10:36 Troponin T Baselin e 7 ng/L (0-10) 09/09/20 10:36 Troponin T 120 Min jose 6.43 ng/L (0-10) 09/09/20 12:32 Delta Troponin T -0.57 ABS# (0-10) L 09/09/20 12:32 Troponin T Hi Sens 6Hr 6.66 ng/L (0-10) 09/09/20 16:39 Troponin T Hi Sens 6Hr Delta -0.34 ng/L (0-12) L 09/09/20 16:39 Total Protein 6.6 g/dL (6.6-8.7 ) 09/10/20 03:50 Albumin 3.7 g/dL (3.5-5.2 ) 09/10/20 03:50 Globulin 2.9 g/dL (1.3-4.6 ) 09/10/20 03:50 Procalcitonin 0.04 ng/mL (0-0.5 ) 09/10/20 03:50 Impressions Chest X-Ray 09/09/20 10:29 IMPRESSION: 1. Bilateral hilar to lower lobe atelectasis versus minimal infiltrate. 2. Right clavicular surgical plate. 3. Right costophrenic angle scarring versus trace effusion. Vitals: Last Vital Signs Temp 98.7 F 09/10/20 15:42 Pulse 99 09/10/20 15:42 Resp 17 09/10/20 15:42 BP 118/69 09/10/20 15:42 Pulse Ox 94 09/10/20 15:42 Discharge Plan Discharge Patient Disposition: Home Condition: Stable Prescriptions: New ipratropium-albuterol 0.5 mg-3 mg(2.5 mg base)/3 mL Solution For Nebulization 3 ml inhalation Q6H.RESPIRATORY Qty: 100 RF: 0 prednisone 50 mg tablet 50 mg PO DAILY 5 Days Qty: 5 RF: 0 Claritin 10 mg tablet 10 mg PO DAILY Qty: 30 RF: 0 Continued Trelegy Ellipta 100-62.5-25 mcg blister with device 1 inh inhalation DAILY 30 Days Qty: 60 RF: 3 albuterol sulfate [Ventolin HFA] 90 mcg/actuation HFA aerosol inhaler 2 inh inhalation Q4H PRN (Reason: shortness of breath or wheezing) Qty: 18 RF: 3 naproxen 500 mg tablet 500 mg PO BID PRN (Reason: pain) Qty: 60 RF: 2 folic acid 1 mg tablet 1 mg PO DAILY Qty: 30 RF: 2 levofloxacin 500 mg tablet 500 mg PO Q24H Qty: 10 RF: 0 montelukast [Singulair] 10 mg tablet 10 mg PO DAILY Qty: 30 RF: 2 Thera 400 mcg tablet 1 tab PO DAILY Qty: 30 RF: 2 Cortisporin-TC 3.3-3-10-0.5 mg/mL drops,suspension 3 drp EAR-BOTH TID Qty: 10 RF: 0 paroxetine HCl [Paxil] 10 mg tablet 10 mg PO DAILY Qty: 30 RF: 2 Daliresp 500 mcg tablet 500 mcg PO DAILY Qty: 30 RF: 2 buspirone 10 mg tablet 10 mg PO BID Qty: 60 RF: 2 cholecalciferol (vitamin D3) 5,000 unit Capsule 5,000 unit PO DAILY RF: 0 fluticasone propionate 50 mcg/actuation spray,suspension 1 spray INTRANASAL DAILY PRN (Reason: Nasal Congestion) RF: 0 imipramine HCl 10 mg tablet 10 mg PO BID RF: 0 oxycodone 10 mg Tablet 10 mg PO Q4H PRN (Reason: Pain) RF: 0 Nicoderm CQ 21 mg/24 hr patch 24 hour 1 patch TRANSDERMA Q24H Qty: 28 RF: 2 Discontinued prednisone 10 mg tablet 10 mg PO DAILY Qty: 7 RF: 0 Discharge Orders: Discharge Order (Routine); Ordered 09/10/20 Ordered By: Sunshine Bustamante Referrals: Arnaldo Pimentel, HEARING AID DISPENSERGreggC [Primary Care Provider] - None (Please call your primary care office in the morning to establish a hospital follow up appointment within 4-7days of your discharge date. ) Tino Blue MD [Physician] - 09/12/20 9:15 am Discharge Diet: Advance as tolerated Discharge Activity: Resume usual activity Patient Instructions: Prednisone (By mouth), Loratadine/Pseudoephedrine (By mouth), How to Stop Smoking (DC), Cigarette Smoking and Your Health (GEN), Chronic Obstructive Pulmonary Disease (DC), Opioid Safety, Obstructive Sleep Apnea Activity Restrictions/Additional Instructions: You presented with increasing difficulty breathing acutely. EMS discovered that your oxygen saturations were around 80%. In route to the hospital you received steroids and breathing treatments and were put on BiPAP when you got here to the hospital. With treatment you had improvement but given the severity of your presentation you were admitted to the hospital. You were given a higher dose of steroids, continued on the Levaquin you had started a couple of days prior when you saw Arnaldo Pimentel and continued on Flonase that had been started. You did well overnight and were back on your usual 4 L of oxygen by nasal cannula. We talked about how you need to slowly get used to using your trilogy device. Even if you can only use for a few hours a night it is better to do that then to not wear it at all. Over time you should get used to it. There may be other options for masks that you tolerate better. It is important to try to stay calm as you can when you do have difficulty breathing because anxiety can make your breathing worse. I encourage you to continue efforts at smoking cessation. Follow-up with Dr. Blue as scheduled on September 12. You can follow-up with Arnaldo Pimentel as well as needed. Discharge Attestations Time Spent in Discharge Care*: greater than 30 min Specific Discharge Activities: educating patient, documenting/other paperwork and evaluating patient/reviewing data Time Spent in Smoking Cessation: 3 to 10 minutes Discussed use of nicotine patch, provided prescription for nicotine patch, provided educational materials to take home gave patient an opportunity to ask questions Quality Metrics Clinical Quality Measures During this hospital stay, did patient experience: None Coding Level of Care Code Acute [facility] note Diagnoses Acute exacerbation of chronic obstructive airways disease J44.1 Community acquired pneumonia J18.9 Anxiety F41.9 INOCENCIO (obstructive sleep apnea) G47.33 Allergic rhinitis due to pollen J30.1 Nicotine addiction F17.200 Osteoarthritis M19.90
--- NOTE | 2020-09-10 16:52 | PC.NURSE ---
Discharge Discharge instructions provided to patient who verbalized understanding. States that her family is coming to pick her up, they will bring portable oxygen tank as well.
--- NOTE | 2020-09-11 11:40 | PC.RESP ---
Smoking Cessation and Pulmonary Rehab information sent to patient.
== END 2020-09-10 17:37 | disposition home or self-care (01) ==
LOC: ER 11:40 → MEDSURG 13:21
PROVIDERS: Admitting Provider Hospitalist; Emergency Provider Family Medicine; PCP Nurse Practitioner; Visit Provider Hospitalist
DX: J44.1 Chronic obstructive pulmonary disease with (acute) exacerbation (principal); J18.9 Pneumonia, unspecified organism; F41.9 Anxiety disorder, unspecified; G47.33 Obstructive sleep apnea (adult) (pediatric); J30.1 Allergic rhinitis due to pollen; M19.90 Unspecified osteoarthritis, unspecified site; F17.210 Nicotine dependence, cigarettes, uncomplicated; E55.9 Vitamin D deficiency, unspecified; M81.0 Age-related osteoporosis without current pathological fracture
CPT/HCPCS: 36415; 36600; 71045; 80051; 80053; 82330; 82550; 82805; 84145; 84484; 85025; 87070; 87205; 93005; 94640; 94660; 96365; 96367; 96372; 99285; G0378; J1650; J1956; J7512; J7626

== ENCOUNTER → 2021-02-14 11:24 | Outpatient (BNVA) | payer MEDICARE, MEDICAID, SELFPAY | PROVIDERS: PCP Nurse Practitioner; Visit Provider Nurse Practitioner | DX: R00.0 Tachycardia, unspecified (principal); Z23 Encounter for immunization; Z13.6 Encounter for screening for cardiovascular disorders | CPT/HCPCS: 80053; 80061; 82607; 84443; 85025 ==

== ENCOUNTER → 2021-08-30 12:05 | Outpatient (BNVA) | payer MEDICARE, MEDICAID, SELFPAY | PROVIDERS: PCP Nurse Practitioner; Visit Provider Nurse Practitioner | DX: E53.8 Deficiency of other specified B group vitamins (principal); J43.1 Panlobular emphysema; F41.9 Anxiety disorder, unspecified; J30.1 Allergic rhinitis due to pollen; R00.0 Tachycardia, unspecified; M19.90 Unspecified osteoarthritis, unspecified site; J44.9 Chronic obstructive pulmonary disease, unspecified; G62.9 Polyneuropathy, unspecified | CPT/HCPCS: 80053; 82607; 85025 ==

== ENCOUNTER 2021-10-01 11:06 | Outpatient (CLI) | payer MEDICARE, MEDICAID, SELFPAY ==
--- NOTE | 2021-10-01 11:00 | CT_ITS ---
WS: [id number] CT CHEST WITHOUT INTRAVENOUS CONTRAST HISTORY: J43.1 - Panlobular emphysema TECHNIQUE: Contiguous 5 mm axial imaging performed on the thorax. Coronal and sagittal reformats are submitted. All CT scans at [facility] use at least one of these dose optimization techniques: automated exposure control; mA and/or kV adjustment per patient size (includes targeted exams where dose is matched to clinical indication); or iterative reconstruction. CONTRAST: None DLP: 569.28 mGy.cm COMPARISON: 05/01/2019 Lungs and central airway: Severe emphysema. New bilateral areas of groundglass attenuation in the upp er lobes and LEFT lower lobe. Otherwise no enlarging mass. Subsegmental atelectasis in the RIGHT RIGH T middle lobe. Pleura: Normal. No pleural effusion. Heart and pericardium: Normal size heart with no pericardial effusion. Mediastinum and cal: Subcarinal and calcified hilar lymph nodes. Largest lymph node is 10 mm along t he inferior paratracheal region. Vessels: Moderate atherosclerosis and ectasia thoracic aorta. Pulmonary arteries dilated 3.9 cm. Chest wall and lower neck: Mildly prominent subcutaneous sternal thyroid tissue. No interval change. Upper abdomen: Calcifications in the suprarenal aorta. No adrenal mass. LEFT hepatic lobe cyst. Osseous structures: Mild anterior wedging of T12. Mild anterior wedging of T3 and T4. Bilateral remot e rib fractures. CT/CT chest wo con [id number] IMPRESSION: 1. New bilateral areas of groundglass attenuation further evaluation and foll ow-up. Focal areas of groundglass attenuation in the upper lobes and the LEFT l ower lobe. Differential includes pneumonitis and low-grade early neoplasm. Rogers mmend follow-up chest CT in 12 months to document stability. 2. Marked pulmonary hypertension. X line severe emphysema. 3. Mild thyromegaly and substernal goiter.
== END 2021-10-01 11:07 | disposition home or self-care (01) ==
LOC: RAD 11:10
PROVIDERS: PCP Nurse Practitioner; Visit Provider Nurse Practitioner
DX: J43.1 Panlobular emphysema (principal); J96.11 Chronic respiratory failure with hypoxia; J96.12 Chronic respiratory failure with hypercapnia; R91.8 Other nonspecific abnormal finding of lung field
CPT/HCPCS: 71250

== ENCOUNTER 2021-11-21 09:54 | Observation (INO) | payer MEDICARE, MEDICAID, SELFPAY ==
[2021-11-21] VITALS (21 sets, daily range): BP systolic 113–136; BP diastolic 65–82; PULSE 77–126; RESP 20–35; TEMP 36.2–36.6; O2SAT 90–98
--- NOTE | 2021-11-21 09:55 | ECG_ITS ---
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 Measurements Intervals [place] Rate: 117 P: 72 HI: 132 QRS: 55 QRSD: 98 T: 73 QT: 335 QTc: 468 Interpretive Statements SINUS TACHYCARDIA INCOMPLETE RIGHT BUNDLE BRANCH BLOCK [90+ ms QRS DURATION, TERMINAL R IN V1/V2, 40+ ms S IN I/aVL/V4/V5/V6] ABNORMAL RHYTHM ECG Compared to ECG 09/09/2020 16:17:27 Incomplete right bundle-branch block now present Electronically Signed On 11-21-2021 16:29:46 CDT by Mahendra Lozano M.D. [id number]
--- NOTE | 2021-11-21 09:55 | XR_ITS ---
WS: [id number] Exam: XR chest 1V portable [id number] Date/Time of Exam: 11/21/2021 9:55 AM Reason For Exam: dyspnea/cough Comparison 09/09/2020. The lungs are hyperinflated and clear. Normal cardiomediastinal silhouette. No pleural effusions. Bon y structures are intact. Plate and screw fixation of the right clavicle. Chronic interstitial changes . Old bilateral rib fractures. XR/XR chest 1V portable [id number] IMPRESSION: 1. Pulmonary hyperinflation which may indicate obstructive lung disease. No acu te cardiopulmonary finding.
[2021-11-21] MEDS: ipratropium-albuterol 3 mL Neb INHALATION ×3 (10:10→20:35)
--- NOTE | 2021-11-21 10:10 | ED_ITS ---
HPI - SOB/Dyspnea General: Chief Complaint: Shortness of Breath/Dyspnea Stated Complaint: SOB X 2 DAYS Time Seen by Provider: 11/21/21 09:55 Source: patient Mode of arrival: EMS Limitations: physical limitation History of Present Illness: HPI Narrative: 56-year-old female presents emergency room with complaints of shortness of breath. States she was in her usual state of health until this morning she woke up she was profoundly short of breath she is usually on 4 L by nasal cannula at home EMS reports she was 87% on 4 L they put her on a nonrebreather at 15 L on arrival here her sats were in 98 to 100% we titrated her oxygen down. Also given albuterol and DuoNeb in route as well as 125 of Solu-Medrol. Patient denies any fever sweats or chills she had her usual baseline cough until this morning she was very wheezy this morning and difficult time breathing she denied any chest pain. MD elicited complaint: shortness of breath and cough Pertinent past history: COPD Onset (ago): hour(s) Timing: constant Severity: severe Exacerbating factors: exertion and coughing Relieving factors: oxygen, rest and bronchodilators Known history of: COPD Associated symptoms: Reports chest congestion, cough and dizziness; Deny abdominal pain, chest pain, diaphoresis, extremity pain, fever(s), hemoptysis, lightheadedness, myalgias, nausea, orthopnea, palpitations, paresthesias, polydipsia, polyuria, rash, sense of impending doom, syncope or vomiting Treatment prior to arrival: oxygen and bronchodilator Review of Systems Const: Denies: fever(s), chills, fatigue, malaise or diaphoresis Card: Denies: chest pain, palpitations, lightheadedness, syncope or orthopnea Resp: Reports: dyspnea, non-productive cough, wheezing and chest congestion; Denies: productive cough or hemoptysis GI: Denies: abdominal pain, nausea or vomiting : Denies: flank pain, difficulty voiding, dysuria, urinary frequency or u rinary urgency Musc: Denies: extremity pain Neuro: Reports: dizziness Endo: Denies: polyuria or polydipsia PFS ED PFSH: Medical History Allergic rhinitis due to pollen Anxiety Atherosclerosis Chronic respiratory failure with hypoxia and hypercapnia COPD (chronic obstructive pulmonary disease) History of mammogram 2018 Neuropathy INOCENCIO (obstructive sleep apnea) Osteoarthritis Osteoporosis Pelvic fracture 2018 Personal history of nicotine dependence Rib fracture 2018 Sinusitis Spinal fracture Vitamin D deficiency Surgical History Clavicle fracture H/O adenoidectomy History of appendectomy 1986 History of right shoulder fracture April 2017 Hx of hysterectomy Hx of tonsillectomy Hx of tubal ligation Family History Mother Cancer COPD exacerbation Asthma Father Cancer Social History Smoking and tobacco status: current every day smoker cigarettes Packs smoked per day: 2 Years cigarettes smoked: 40 Second hand smoke exposure: Yes Smoking risk assessment/counseling performed?: Yes Alcohol intake: current Alcohol intake frequency: 0-2 Drinks per Day Desire information about alcohol rehabilitation?: No Counseling given: Yes Desire information about substance/drug rehabilitation?: No Counseling given: No Adopted: No Caregiver/support person: No Lives independently: Yes Household members: none Housing: House Marital status: Legally Number of children: 2 service: No Current occupational status: unemployed and disabled History of recent travel: No Current gender identity: Female Physical Exam Const: COMMON NORMALS: no acute distress GENERAL APPEARANCE: cooperative and comfortable ORIENTATION/CONSCIOUSNESS: Yes awake, Yes oriented to person, Yes oriented to place and Yes oriented to time HENMT: COMMON NORMALS: normocephalic, atraumatic and hearing grossly normal bilaterally HEAD & SCALP: normocephalic and atraumatic Resp: EFFORT & INSPECTION: Yes tachypneic and Yes audible wheezes AUSCUL TATION: rhonchi and wheezes Cardio: COMMON NORMALS: regular rhythm RATE: tachycardic RHYTHM: regular rhythm GI: COMMON NORMALS: Soft to palpation and No hepatosplenomegaly present AUSCULTATION: Yes normoactive bowel sounds PALPATION: Yes Soft to palpation, No Tenderness to palpation present (GI), No Guarding due to palpation present (GI) and Yes No hepatosplenomegaly present Extremity: COMMON NORMALS: normal to inspection, capillary refill normal, no clubbing, cyanosis or edema, no calf tenderness and no pedal edema Neuro: SENSORIUM/ORIENTATION: Yes oriented to person, Yes oriented to place and Yes oriented to time Skin: COMMON NORMALS: no rashes or lesions noted GENERAL SKIN EXAM: no rashes or lesions noted Course Vital Signs: Vital signs: Vital Signs Pulse Rate 116 H 11/21/21 10:39 Respiratory Rate 22 H 11/21/21 10:12 Blood Pressure 113/72 11/21/21 10:00 Pulse Oximetry 93 11/21/21 10:39 Oxygen Delivery Me thod 11/21/21 10:12 Oxygen Flow Rate 3 11/21/21 10:12 Fraction of Inspir ed Oxygen 40 11/21/21 10:39 MDM - SOB/Dyspnea Medical Decision Making Acute exacerbation of COPD no evidence of pneumonia. Not appear she has COVID either at this point. She was hypercapnic on her blood gas for her to titrate her oxygen down some BiPAP and she is feeling much better I think she should be placed on observation for now to ensure good pulmonary toilet resolution of symptoms before being discharged home. Medical Records I reviewed the patient's medical records. Lab Data I reviewed the patient's lab results. : 11/21/21 10:59 11/21/21 10:59 Labs/Radiology: Radiology Impressions Chest X-Ray 11/21/21 09:55 IMPRESSION: 1. Pulmonary hyperinflation which may indicate obstructive lung disease. No acute cardiopulmonary finding. Laboratory Results WBC 13.0 10^3/uL (4.0-10.0) H 11/21/21 10:59 RBC 4.96 10^6/uL (4.1-5.3) 11/21/21 10:59 Hgb 16.0 g/dL (11.5-15.3) H 11/21/21 10:59 Hct 45.8 % (37.0-47.0) 11/21/21 10:59 MCV 92.3 fl (81-99) 11/21/21 10:59 MCH 32.3 pg (28.0-34.0) 11/21/21 10:59 MCHC 34.9 g/dL (30.0-36.0) 11/21/21 10:59 RDW 12.0 % (12.1-15.1) L 11/21/21 10:59 Plt Count 263 10^3/cmm (130-400) 11/21/21 10:59 MPV 9.0 fL (7.4-10.4) 11/21/21 10:59 Neut % (Auto) 85.0 % 11/21/21 10:59 Lymph % (Auto) 9.3 % 11/21/21 10:59 [place] % (Auto) 4.4 % 11/21/21 10:59 Eos % (Auto) 0.5 % 11/21/21 10:59 Baso % (Auto) 0.5 % 11/21/21 10:59 Neut # (Auto) 11.02 10^3/uL (1.8-7.7) H 11/21/21 10:59 Lymph # (Auto) 1.2 10^3/uL (0.8-4.8) 11/21/21 10:59 [place] # (Auto) 0.6 10^3/uL (0.2-0.9) 11/21/21 10:59 Eos # (Auto) 0.1 10^3/uL (0.0-0.8) 11/21/21 10:59 Baso # (Auto) 0.1 10^3/uL (0.0-0.1) 11/21/21 10:59 Nucleated RBC % (auto) 0 % 11/21/21 10:59 Nucleated RBCs # 0.0 /100WBC 11/21/21 10:59 Specimen Type Arterial 11/21/21 10:06 Sample Site Radial, right 11/21/21 10:06 ABG pH 7.40 (7.35-7.45) 11/21/21 10:06 ABG pCO2 62.7 mmHg (35-45) H* 11/21/21 10:06 ABG pO2 52.4 mmHg (80.0-100.0) L 11/21/21 10:06 ABG HCO3 39.0 mmol/L (22-26) H 11/21/21 10:06 ABG O2 Saturation 90.7 11/21/21 10:06 ABG Base Excess 11.7 mmol/L (-2.0-2.0) H 11/21/21 10:06 Hans Test Pos 11/21/21 10:06 A-a O2 Gradient 13.1 mmHg (5-10) H 11/21/21 10:06 Hematocrit 39.3 % (37-47) 11/21/21 10:06 Hgb O2 Saturation 82.7 % (95-100) L 11/21/21 10:06 Carboxyhemoglobin 8.1 %THgb (0.4-20.1) 11/21/21 10:06 Methemoglobin 0.6 % (0.4-1.5) 11/21/21 10:06 Total Hemoglobin 12.8 g/dL (12-16) 11/21/21 10:06 Sodium 140.0 mmol/L (131-143) 11/21/21 10:06 Potassium 4.0 mmol/L (3.5-5.0) 11/21/21 10:06 Glucose 150.0 mg/dL (70-115) H 11/21/21 10:06 Ionized Calcium 1.2 mmol/L (1.1-1.4) 11/21/21 10:06 O2 Delivery Device Nc 11/21/21 10:06 O2 Liters/Min 3.0 % 11/21/21 10:06 FiO2 32.0 % 11/21/21 10:06 Human Resources Administrator ID [place] 11/21/21 10:06 Sodium 140 mmol/L (136-145) 11/21/21 10:59 Potassium 3.7 mmol/L (3.5-5.1) 11/21/21 10:59 Chloride 102 mmol/L (98-107) 11/21/21 10:59 Carbon Dioxide 27 mmol/L (22-29) 11/21/21 10:59 Anion Gap 14.7 (5-19) 11/21/21 10:59 BUN 9 mg/dL (6-20) 11/21/21 10:59 Creatinine 0.9 mg/dL (0.5-0.9) 11/21/21 10:59 GFR Calculation 65.0 mL/min (90-130) L 11/21/21 10:59 Glucose 104 mg/dL (65-115) 11/21/21 10:59 Calculated Osmolality 289 mOsm/kg (285-295) 11/21/21 10:59 Calcium 9.7 mg/dL (8.5-10.5) 11/21/21 10:59 Total Bilirubin 0.3 mg/dL (0.15-1.2) 11/21/21 10:59 AST 18 U/L (0-32) 11/21/21 10:59 ALT 22 U/L (0-33) 11/21/21 10:59 Alkaline Phosphatase 72 IU/L (35-105) 11/21/21 10:59 Total Protein 6.4 g/dL (6.6-8.7) L 11/21/21 10:59 Albumin 4.1 g/dL (3.5-5.2) 11/21/21 10:59 Globulin 2.3 g/dL (1.3-4.6) 11/21/21 10:59 Discharge Plan Discharge Condition: Stable Prescriptions: No Action albuterol sulfate [Ventolin HFA] 90 mcg/actuation HFA aerosol inhaler 2 inh inhalation .COMPLEX PRN (Reason: shortness of breath or wheezing) Qty: 36 2RF Rx Instructions: 2 inhalations inhalation every 4 hours up to 6 times a day PRN; buspirone 10 mg tablet 10 mg PO BID Qty: 60 2RF Rx Instructions: cholecalciferol (vitamin D3) 125 mcg (5,000 unit) capsule 5,000 unit PO DAILY Qty: 30 2RF cyanocobalamin (vitamin B-12) 1,000 mcg/mL solution 1,000 mcg IM .monthly Qty: 1 2RF Trelegy Ellipta 100-62.5-25 mcg blister with device 1 inh inhalation DAILY Qty: 60 2RF Claritin 10 mg tablet 10 mg PO DAILY Qty: 30 2RF metoprolol succinate [Toprol XL] 50 mg tablet extended release 24 hr 50 mg PO DAILY Qty: 30 2RF montelukast [Singulair] 10 mg tablet 10 mg PO DAILY Qty: 30 2RF naproxen 500 mg tablet 500 mg PO BID PRN (Reason: pain) Qty: 60 2RF paroxetine HCl [Paxil] 10 mg tablet 10 mg PO DAILY Qty: 30 2RF Daliresp 500 mcg tablet 500 mcg PO DAILY Qty: 30 2RF (DME) Easy Touch SheathLock Syrg-Ndl 3 mL 25 gauge x 1 syringe See Rx Instructions .ROUTE .MEDSUPPLY Qty: 1 2RF Rx Instructions: use monthly with Vitamin B12 multivitamin with folic acid [Tab-A-Beth] 400 mcg tablet 1 tab PO DAILY Qty: 30 2RF hydroxyzine pamoate 50 mg capsule 25 mg PO BID Qty: 60 0RF ipratropium-albuterol 0.5 mg-3 mg(2.5 mg base)/3 mL solution for nebulization 3 ml inhalation Q6H.RESPIRATORY Qty: 300 5RF folic acid 800 mcg tablet 800 mcg PO DAILY Qty: 30 2RF Rx Instructions: dose decrease gabapentin 400 mg capsule 400 mg PO BID Qty: 60 2RF Rx Instructions: nerve pain oxycodone 10 mg Tablet 10 mg PO Q4H PRN (Reason: Pain) fluticasone propionate 50 mcg/actuation spray,suspension 2 spray INTRANASAL DAILY PRN (Reason: Nasal Congestion) Referrals: Arnaldo Pimentel FNP-C [Primary Care Provider] - Coding Level of Care Code ED Insurance Clerk for Kaylah Bach
[2021-11-21 10:18] LABS: Alveolar-Arterial Oxygen Gradi 13.1 mmHg (5-10); Arterial Blood Gas Hematocrit 39.3 % (37-47); Base Excess ABG 11.7 mmol/L (-2.0-2.0); Blood Gas Allen Test Pos; Blood Gas Operator Identificat MONRO; Blood Gas Sample Site Radial, right; Blood Gas Sample Type Arterial; Carboxyhemoglobin 8.1 %THgb (0.4-20.1); HGB O2 Sat 82.7 % (95-100); Ionized Calcium Level - ABG 1.2 mmol/L (1.1-1.4); Methemoglobin 0.6 % (0.4-1.5); Oxygen Device NC; Oxygen Saturation ABG 90.7; PO2 ABG 52.4 mmHg (80.0-100.0); Total Hemoglobin 12.8 g/dL (12-16)
[2021-11-21 10:19] LABS: ABG PCO2 62.7 mmHg (35-45)
[2021-11-21 11:10] LABS: Basophils # 0.1 10^3/uL (0.0-0.1); Basophils % 0.5 %; Eosinophils # 0.1 10^3/uL (0.0-0.8); Eosinophils % 0.5 %; Hematocrit 45.8 % (37.0-47.0); Lymphocytes # 1.2 10^3/uL (0.8-4.8); Lymphocytes % 9.3 %; Mean Corpuscular HGB Conc 34.9 g/dL (30.0-36.0); Mean Corpuscular Hemoglobin 32.3 pg (28.0-34.0); Mean Corpuscular Volume 92.3 fl (81-99); Monocytes # 0.6 10^3/uL (0.2-0.9); Monocytes % 4.4 %; Neutrophils # 11.02 10^3/uL (1.8-7.7); Nucleated Red Blood Cells % 0 %; Platelet Count 263 10^3/cmm (130-400); Red Blood Count 4.96 10^6/uL (4.1-5.3)
--- NOTE | 2021-11-21 11:29 | CT_ITS ---
WS: [id number] CT ABDOMEN AND PELVIS NONCONTRAST HISTORY: urinary retention TECHNIQUE: Imaging performed through the abdomen and pelvis. Coronal and sagittal reformats are submi tted. All CT scans at [facility] use at least one of these dose optimization techniques: auto mated exposure control; mA and/or kV adjustment per patient size (includes targeted exams where dose is matched to clinical indication); or iterative reconstruction. DLP: 1046.24 mGy.cm COMPARISON: 05/09/2017 Lower thorax: Chronic emphysematous changes with pleural thickening and subsegmental RIGHT basilar at electasis. Benign LEFT lower lobe granuloma. Normal size heart. Liver: Normal size liver. There is a small cyst which is stable along the falciform ligament and LEFT lobe. No bile duct dilatation. Gallbladder: Normal gallbladder. Pancreas: Normal size and attenuation. Normal pancreatic duct. No pancreatitis or mass. Spleen: Normal size with granulomata. Adrenal glands: Mild thickening and nodularity of the LEFT adrenal gland. Suspect very small adenoma is present Right kidney: Normal size kidney with no mass or hydronephrosis. Left kidney: Normal size kidney with no mass or hydronephrosis. Aorta: Mild atherosclerosis aorta. No aneurysm. Mild calcification at the origin of the mesenteric ar teries and renal arteries. No free fluid, intraperitoneal air or significant lymphadenopathy. GI tract: Prior appendectomy. No GI tract obstruction or diverticulosis. Abdominal wall: Negative. No hernia. Pelvis: Prior hysterectomy. No midline mass. RIGHT adnexal cyst measures 2.3 x 2.2 cm. Osseous structures: Mild anterior wedging of T12 by 10%. No change since 2018. CT/CT kidney stone [id number] IMPRESSION: 1. No renal obstruction or calcification. 2. Prior appendectomy. 3. No adenopathy or ascites. 4. Mild atherosclerosis aorta.
[2021-11-21 11:44] LABS: Alanine Aminotransferase 22 U/L (0-33); Albumin Level 4.1 g/dL (3.5-5.2); Alkaline Phosphatase 72 IU/L (35-105); Anion Gap 14.7 (5-19); Aspartate Amino Transferase 18 U/L (0-32); Blood Urea Nitrogen 9 mg/dL (6-20); Calcium 9.7 mg/dL (8.5-10.5); Carbon Dioxide 27 mmol/L (22-29); Chloride 102 mmol/L (98-107); Globulin 2.3 g/dL (1.3-4.6); Glucose 104 mg/dL (65-115); Osmolality Calculated 289 mOsm/kg (285-295); Potassium 3.7 mmol/L (3.5-5.1); Sodium 140 mmol/L (136-145); Total Bilirubin 0.3 mg/dL (0.15-1.2); Total Protein 6.4 g/dL (6.6-8.7)
[2021-11-21] MEDS: HYDROcodone-acetaminophen 10-325 mg Tablet 1 TAB PO (12:58)
--- NOTE | 2021-11-21 13:08 | P.HP_ITS ---
Providers/Chief Complaint Admitting Physician: Sandra Dowd MD Primary Care Provider: NAKITA Galdamez-Alejandro Chief Complaint: SOB X 2 DAYS History of Present Illness Hilary Alegre is a 56 year old female who carries history of oxygen apparent COPD, uses 4 L of oxygen at baseline. Today she woke up feeling extremely short of breath. She has not noticed recent fever, productive cough, change in sputum color. No COVID-related symptoms. When EMS was called she was saturating 87% on 4 L. She was put on 15 L nonrebreather mask which improved her O2 saturation. She was given DuoNeb and IV steroids. Patient is noncompliant, she is still smoking, she stating that she is smoking half a pack a day, she also has trilogy which she has not been using on daily basis, she has not noticed any fever, today she woke up feeling worse. Diagnostics in the ER revealed compensated pH however hypoxia and hypercapnia is evident without any signs of active infection, CT abdomen pelvis unremarkable, Review of Systems Const: Reports: chills Eyes: Denies: change in vision ENMT: Denies: throat pain Card: Reports: dyspnea on exertion; Denies: chest pain Resp: Reports: dyspnea and wheezing GI: Denies: abdominal pain : Denies: flank pain Musc: Denies: neck pain Skin/Breast: Denies: rash Neuro: Denies: headache(s) Psych: Reports: anxiety Endo: Denies: polyuria Kvng/Lymph: Denies: easy bruising All/Imm: Denies: urticaria Medications/Allergies Home Medications Medication Instructions Recorded Confirmed Last Taken Type oxycodone 10 mg tablet 10 mg PO Q4H PRN Pain 09/09/20 11/21/21 11/19/21 History albuterol sulfate 90 mcg/actuation 2 inh inhalation .COMPLEX PRN 08/30/21 11/21/21 11/20/21 Rx aerosol inhaler (Ventolin HFA) shortness of breath or wheezing #36 grams buspirone 10 mg tablet 10 mg PO BID #60 tabs 08/30/21 11/21/21 11/19/21 Rx cholecalciferol (vitamin D3) 125 5,000 unit PO DAILY #30 caps 08/30/21 11/21/21 11/19/21 Rx mcg (5,000 unit) capsule cyanocobalamin (vitamin B-12) 1,000 mcg IM .monthly #1 mL 08/30/21 11/21/21 Unknown Rx 1,000 mcg/mL injection solution fluticasone fur. 100 mcg-umeclid 1 inh inhalation DAILY #60 ea 08/30/21 11/21/21 11/20/21 Rx 62.5 mcg-vilant 25 mcg inhalat.powder (Trelegy Ellipta) loratadine 10 mg tablet (Claritin) 10 mg PO DAILY #30 tabs 08/30/21 11/21/21 11/19/21 Rx metoprolol succinate 50 mg 50 mg PO DAILY #30 tabs 08/30/21 11/21/21 11/19/21 Rx tablet,extended release 24 hr (Toprol XL) montelukast 10 mg tablet 10 mg PO DAILY #30 tabs 08/30/21 11/21/21 11/19/21 Rx (Singulair) naproxen 500 mg tablet 500 mg PO BID PRN pain #60 tabs 08/30/21 11/21/21 11/19/21 Rx paroxetine HCl 10 mg tablet (Paxil) 10 mg PO DAILY #30 tabs 08/30/21 11/21/21 11/19/21 Rx roflumilast 500 mcg tablet 500 mcg PO DAILY #30 tabs 08/30/21 11/21/21 11/19/21 Rx (Daliresp) syringe with needle, safety 3 mL #1 ea 08/30/21 11/21/21 Unknown Rx 25 gauge x 1 (Easy Touch SheathLock Syringe with Needle) multivitamin with folic acid 400 1 tab PO DAILY #30 tabs 10/03/21 11/21/21 11/19/21 Rx mcg tablet (Tab-A-Beth) hydroxyzine pamoate 50 mg capsule 25 mg PO BID #60 caps 10/20/21 11/21/21 11/19/21 Rx ipratropium 0.5 mg-albuterol 3 mg 3 ml inhalation Q6H.RESPIRATORY 10/20/21 11/21/21 11/20/21 Rx (2.5 mg base)/3 mL nebulization #300 mL soln folic acid 800 mcg tablet 800 mcg PO DAILY #30 tabs 11/04/21 11/21/21 11/19/21 Rx gabapentin 400 mg capsule 400 mg PO BID #60 caps 11/04/21 11/21/21 11/19/21 Rx fluticasone propionate 50 2 spray intranasal DAILY PRN Nasal 11/21/21 11/21/21 11/19/21 History mcg/actuation nasal Congestion spray,suspension Allergies Allergy/AdvReac Type Severity Reaction Status Date / Time cephalexin Allergy Intermediate ALGY-Hives Verified 11/21/21 11:03 pregabalin [From Lyrica] Allergy ALGY-Swell Verified 11/21/21 11:06 Lip/Tongue/Throat PFSH Acute PFSH: Medical History Allergic rhinitis due to pollen Anxiety Atherosclerosis Chronic respiratory failure with hypoxia and hypercapnia COPD (chronic obstructive pulmonary disease) History of mammogram 2018 Neuropathy INOCENCIO (obstructive sleep apnea) Osteoarthritis Osteoporosis Pelvic fracture 2018 Personal history of nicotine dependence Rib fracture 2018 Sinusitis Spinal fracture Vitamin D deficiency Surgical History Clavicle fracture H/O adenoidectomy History of appendectomy 1985 History of right shoulder fracture April 2017 Hx of hysterectomy Hx of tonsillectomy Hx of tubal ligation Family History Mother Cancer COPD exacerbation Asthma Father Cancer Social History Smoking and tobacco status: current every day smoker cigarettes Packs smoked per day: 2 Years cigarettes smoked: 40 Second hand smoke exposure: Yes Smoking risk assessment/counseling performed?: Yes Alcohol intake: current Alcohol intake frequency: 0-2 Drinks per Day Desire information about alcohol rehabilitation?: No Counseling given: Yes Desire information about substance/drug rehabilitation?: No Counseling given: No Adopted: No Caregiver/support person: No Lives independently: Yes Household members: none Housing: House Marital status: Legally Number of children: 2 service: No Current occupational status: unemployed and disabled History of recent travel: No Current gender identity: Female Vitals/I&O/Wt Last Vital Signs Pulse 116 H 11/21/21 10:39 Resp 22 H 11/21/21 10:12 BP 113/72 11/21/21 10:00 Pulse Ox 93 11/21/21 10:39 O2 Del Method 11/21/21 10:12 O2 Flow Rate 3 11/21/21 10:12 FiO2 40 11/21/21 10:39 Physical Exam Narrative: Thin built female Nonfocal neuro exam EOMI, PERRLA On BiPAP, wheezing positive Rhonchi at the bases S1, S2 sinus tachycardia Abdomen soft nontender No signs of edema Skin is dry Normal affect No sign of cellulitis Data : 11/21/21 10:59 11/21/21 10:59 A&P Assessment and plan (1) Neuropathy: Status: Chronic (2) Vitamin B12 deficiency: Status: Acute (3) INOCENCIO (obstructive sleep apnea): Status: Chronic (4) Chronic respiratory failure with hypoxia and hypercapnia: Status: Chronic (5) Acute exacerbation of chronic obstructive airways disease: Status: Acute (6) Nicotine addiction: Status: Chronic (7) Osteoarthritis: Status: Chronic Plan Acute COPD exacerbation Noncompliant Continue DuoNeb Add prednisone pH is compensated however relative hypoxia at baseline uses 4 L Will add azithromycin for anti-inflammatory effect BiPAP overnight Check D-dimer Full code Cardiac diet DVT prophylaxis Lovenox Anticipating discharge within 48 hours Admit as observation ACapella at the bedside Noncompliant If clinically stable will be discharged tomorrow Attestations Medical Necessity Statement*: Anticipating discharge within 48 hours for COPD exacerbation and Time Spent in Patient Care: 35 Coding Level of Care Code Acute Pile Driver Operator Helper for Chg Fwd Diagnoses Neuropathy G62.9 Vitamin B12 deficiency E53.8 INOCENCIO (obstructive sleep apnea) G47.33 Chronic respiratory failure with hypoxia and hypercapnia J96.11; J96.12 Acute exacerbation of chronic obstructive airways disease J44.1 Nicotine addiction F17.200 Osteoarthritis M19.90
[2021-11-21 14:58] LABS: Procalcitonin 0.04 ng/mL (0-0.5)
--- NOTE | 2021-11-21 15:01 | PC.NURSE ---
1340 pt arrived to med surg floor via stretcher with ED staff, respiratory at bedside, pt with difficulty breathing/SOB, pt up to BSC, then placed on bipap via respiratory. Pt with belongings. orders received in chart.
[2021-11-21] MEDS: enoxaparin 40 mg/0.4 mL Syringe SUBCUT (16:22)
[2021-11-21] MEDS: oxyCODONE 5 mg IR Tab/Cap 10 MG PO ×2 (16:22→20:35)
[2021-11-21] MEDS: gabapentin 400 mg Capsule PO (17:24)
[2021-11-21] MEDS: BuSPIRONE 10 mg Tablet PO (17:24)
[2021-11-21 18:28] LABS: D Dimer <= 0.27 ug/mIFEU (0-0.59)
[2021-11-22] VITALS (11 sets, daily range): BP systolic 121–151; BP diastolic 71–87; PULSE 53–94; RESP 16–24; TEMP 36.6–36.8; O2SAT 91–96
[2021-11-22] MEDS: oxyCODONE 5 mg IR Tab/Cap 10 MG PO ×3 (01:13→10:50)
[2021-11-22] MEDS: morphine 4 mg/mL SDV 1 mL 2 MG IVP (02:12)
[2021-11-22] MEDS: ipratropium-albuterol 3 mL Neb INHALATION ×2 (02:41→09:02)
[2021-11-22 04:57] LABS: Basophils % 0.2 %; Eosinophils # 0.1 10^3/uL (0.0-0.8); Eosinophils % 0.7 %; Hematocrit 39.1 % (37.0-47.0); Hemoglobin 12.1 g/dL (11.5-15.3); Lymphocytes # 2.3 10^3/uL (0.8-4.8); Lymphocytes % 19.2 %; Mean Corpuscular HGB Conc 30.9 g/dL (30.0-36.0); Mean Corpuscular Hemoglobin 30.8 pg (28.0-34.0); Mean Corpuscular Volume 99.5 fl (81-99); Mean Platelet Volume 10.2 fL (7.4-10.4); Monocytes # 1.3 10^3/uL (0.2-0.9); Monocytes % 11.1 %; Neutrophils # 8.24 10^3/uL (1.8-7.7); Neutrophils % 68.1 %; Nucleated Red Blood Cells % 0 %; Platelet Count 340 10^3/cmm (130-400); Red Blood Count 3.93 10^6/uL (4.1-5.3); Red Cell Distribution Width 12.8 % (12.1-15.1); White Blood Count 12.1 10^3/uL (4.0-10.0)
[2021-11-22 05:17] LABS: C Reactive Protein 23.4 mg/L (0.0-4.9)
[2021-11-22 05:21] LABS: Anion Gap 13.6 (5-19); Blood Urea Nitrogen 14 mg/dL (6-20); Calcium 9.7 mg/dL (8.5-10.5); Carbon Dioxide 36 mmol/L (22-29); Chloride 96 mmol/L (98-107); Glucose 101 mg/dL (65-115); Osmolality Calculated 293 mOsm/kg (285-295); Potassium 4.6 mmol/L (3.5-5.1); Sodium 141 mmol/L (136-145)
[2021-11-22 05:36] LABS: ABG PCO2 56.9 mmHg (35-45); ABG PH Result 7.43 (7.35-7.45); Arterial Blood Gas Hematocrit 39.1 % (37-47); Blood Gas Allen Test Pos; Blood Gas Operator Identificat JB; Blood Gas Sample Site Radial, right; Blood Gas Sample Type Arterial; HCO3 ABG 37.5 mmol/L (22-26); Oxygen Device NC; PO2 ABG 58.4 mmHg (80.0-100.0)
[2021-11-22] MEDS: predniSONE 20 mg Tablet 40 MG PO (09:16)
[2021-11-22] MEDS: roflumilast 500 mcg Tablet PO (09:17)
[2021-11-22] MEDS: oxyCODONE-APAP 5-325 mg Tablet 1 TAB PO (09:17)
[2021-11-22] MEDS: montelukast sodium 10 mg Tablet PO (09:17)
[2021-11-22] MEDS: PARoxetine 20 mg Tablet 10 MG PO (09:18)
[2021-11-22] MEDS: metoprolol succinate ER (24 HR) 50 mg Tablet PO (09:18)
[2021-11-22] MEDS: gabapentin 400 mg Capsule PO (09:18)
[2021-11-22] MEDS: multivitamin therapeutic Tablet 1 TAB PO (09:18)
[2021-11-22] MEDS: BuSPIRONE 10 mg Tablet PO (09:18)
[2021-11-22] MEDS: sennosides-docusate Tablet 1 TAB PO (09:18)
[2021-11-22] MEDS: loratadine 10 mg Tablet PO (09:18)
--- NOTE | 2021-11-22 09:46 | PC.CHAP ---
Pastoral Care Encounter/Spiritual Assessment Type of Contact [] Declined premium service representative visit [] Patient/Family/Request visit [] Outpatient visit [] Follow-up visit [] Physician referral [] Code/Alert [] Routine visit [] Staff referral [] Actively dying [] Patient sleeping [] Family support [] [] Out of room [] Palliative care [] [] Receiving care in room [] Pre-surgical visit [] Trauma [] Long length of stay [] ICU visit [X] Other: with staff Relational/Emotional Strength [] Patient feels connected with others/family/visitors/staff [] Distress [] Loneliness/isolation [] Abandonment Spirituality of Patient [] Person of Any [] Attends Mu-Ism of their Any [] Believes in Prayer [] Reads Bible or Mandaen materials [] There are Spiritual issues to be addressed [place]iner Interventions [] Prayer [] Active listening [] Non-anxious presence [] Spiritual/emotional support [] Crisis/trauma care [] Spiritual counseling [] Bereavement support [] Provided bereavement packet [] Provided Bible/devotional materials [] Provided toy/stuffed animal, coloring book to patient or family member [] Provided Communion [] Anointing/[place] [] Salvation [] Completed spiritual assessment [] Other: Impact on Illness or Injury [] Angry [] Fearful [] Anxious [] Often cries [] Exhaustion [] Unable to work [] Unable to attend samaritan [] Unable to walk/stand [] Unable to read [] Unable to drive [] Unable to eat/drink [] Unable to sleep [] Unable to be with family [] Patient intubated [] Other: Summary with staff Time spent with patient 5 mins
--- NOTE | 2021-11-22 10:08 | PM.DCS ---
Discharge Providers Date of Admission: 11/21/21 11:35 Date of Discharge: November 22, 2021 Attending Provider at Admission: Sandra Dowd MD Attending Provider at Discharge: Sandra Dowd MD Primary Care Provider: JACK Galdamez Diagnoses at Discharge Discharge Diagnosis (1) Neuropathy: Status: Chronic (2) Vitamin B12 deficiency: Status: Acute (3) INOCENCIO (obstructive sleep apnea): Status: Chronic (4) Chronic respiratory failure with hypoxia and hypercapnia: Status: Chronic (5) Acute exacerbation of chronic obstructive airways disease: Status: Acute (6) Nicotine addiction: Status: Chronic (7) Osteoarthritis: Status: Chronic Reason for Visit Reason for Visit: SOB X 2 DAYS Hospital Course Hospital Course 56-year-old female, trilogy at home, she is an active smoker, smacks more than half a pack a day, uses 4 L of oxygen at baseline presented with worsening shortness of breath. Her pH was compensated however her work of breathing was increased, she was given enough time to calm down with BiPAP and opioids. Next day pH was also compensated with improvement in PCO2 she does have appropriate bicarb elevation to her chronic PCO2 retention. Considering her end-stage COPD and noncompliance she might benefit from palliative/comfort care. For now she is requesting respite care. No active signs of PE or pneumonia. I have prescribed her azithromycin as anti-inflammatory medication for her COPD exacerbation. Procalcitonin unremarkable. Afebrile. Leukocytosis likely secondary to stress response to steroids. I will also give her Medrol pack. She has been complaining of left-sided pain, left upper quadrant pain her CT scan of abdomen pelvis is unremarkable. I have counseled patient to quit smoking and stay compliant with her oxygen and trilogy Sinus tachycardia noted secondary to her pain and DuoNeb treatment. D-dimer unremarkable. Physical Exam Narrative: Conversational dyspnea has improved tenderness to palpation left paraspinal area, Awake and alert Currently on 4 L nasal cannula Sinus tachycardia after breathing treatment She is also in pain No signs of edema of legs Awake and alert Nonfocal neuro exam Discharge Data Studies Completed and Pending Completed Studies During Hospitalization Category Date Time Status CT kidney stone [id number] Stat Cat Scan 11/21/21 11:29 Completed XR chest 1V portable [id number] Stat Exams 11/21/21 09:55 Completed Radiology Impressions Chest X-Ray 11/21/21 09:55 IMPRESSION: 1. Pulmonary hyperinflation which may indicate obstructive lung disease. No acute cardiopulmonary finding. Abdomen/Pelvis CT 11/21/21 11:29 IMPRESSION: 1. No renal obstruction or calcification. 2. Prior appendectomy. 3. No adenopathy or ascites. 4. Mild atherosclerosis aorta. Laboratory Results WBC 12.1 10^3/uL (4.0-10.0) H 11/22/21 04:35 RBC 3.93 10^6/uL (4.1-5.3) L 11/22/21 04:35 Hgb 12.1 g/dL (11.5-15.3) 11/22/21 04:35 Hct 39.1 % (37.0-47.0) 11/22/21 04:35 MCV 99.5 fl (81-99) H D 11/22/21 04:35 MCH 30.8 pg (28.0-34.0) 11/22/21 04:35 MCHC 30.9 g/dL (30.0-36.0) D 11/22/21 04:35 RDW 12.8 % (12.1-15.1) 11/22/21 04:35 Plt Count 340 10^3/cmm (130-400) 11/22/21 04:35 MPV 10.2 fL (7.4-10.4) 11/22/21 04:35 Neut % (Auto) 68.1 % 11/22/21 04:35 Lymph % (Auto) 19.2 % 11/22/21 04:35 [place] % (Auto) 11.1 % 11/22/21 04:35 Eos % (Auto) 0.7 % 11/22/21 04:35 Baso % (Auto) 0.2 % 11/22/21 04:35 Neut # (Auto) 8.24 10^3/uL (1.8-7.7) H 11/22/21 04:35 Lymph # (Auto) 2.3 10^3/uL (0.8-4.8) 11/22/21 04:35 [place] # (Auto) 1.3 10^3/uL (0.2-0.9) H 11/22/21 04:35 Eos # (Auto) 0.1 10^3/uL (0.0-0.8) 11/22/21 04:35 Baso # (Auto) 0.0 10^3/uL (0.0-0.1) 11/22/21 04:35 Nucleated RBC % (auto) 0 % 11/22/21 04:35 Nucleated RBCs # 0.0 /100WBC 11/22/21 04:35 D-Dimer <= 0.27 ug/mIFEU (0-0.59) 11/21/21 15:17 Specimen Type Arterial 11/22/21 05:14 Sample Site Radial, right 11/22/21 05:14 ABG pH 7.43 (7.35-7.45) 11/22/21 05:14 ABG pCO2 56.9 mmHg (35-45) H 11/22/21 05:14 ABG pO2 58.4 mmHg (80.0-100.0) L 11/22/21 05:14 ABG HCO3 37.5 mmol/L (22-26) H 11/22/21 05:14 ABG O2 Saturation 90.7 11/21/21 10:06 ABG Base Excess 11.0 mmol/L (-2.0-2.0) H 11/22/21 05:14 Hans Test Pos 11/22/21 05:14 A-a O2 Gradient 13.1 mmHg (5-10) H 11/21/21 10:06 Hematocrit 39.1 % (37-47) 11/22/21 05:14 Hgb O2 Saturation 82.7 % (95-100) L 11/21/21 10:06 Carboxyhemoglobin 8.1 %THgb (0.4-20.1) 11/21/21 10:06 Methemoglobin 0.6 % (0.4-1.5) 11/21/21 10:06 Total Hemoglobin 12.8 g/dL (12-16) 11/21/21 10:06 Sodium 140.0 mmol/L (131-143) 11/21/21 10:06 Potassium 4.0 mmol/L (3.5-5.0) 11/21/21 10:06 Glucose 150.0 mg/dL (70-115) H 11/21/21 10:06 Ionized Calcium 1.2 mmol/L (1.1-1.4) 11/21/21 10:06 O2 Delivery Device Nc 11/22/21 05:14 O2 Liters/Min 3.0 % 11/22/21 05:14 FiO2 32.0 % 11/21/21 10:06 Lead Injection Mold Technician ID Adam 11/22/21 05:14 Sodium 141 mmol/L (136-145) 11/22/21 04:35 Potassium 4.6 mmol/L (3.5-5.1) 11/22/21 04:35 Chloride 96 mmol/L (98-107) L 11/22/21 04:35 Carbon Dioxide 36 mmol/L (22-29) H 11/22/21 04:35 Anion Gap 13.6 (5-19) 11/22/21 04:35 BUN 14 mg/dL (6-20) 11/22/21 04:35 Creatinine 0.3 mg/dL (0.5-0.9) L 11/22/21 04:35 GFR Calculation 231.0 mL/min (90-130) H 11/22/21 04:35 Glucose 101 mg/dL (65-115) 11/22/21 04:35 Calculated Osmolality 293 mOsm/kg (285-295) 11/22/21 04:35 Calcium 9.7 mg/dL (8.5-10.5) 11/22/21 04:35 Magnesium 2.0 mg/dL (1.7-2.3) 11/22/21 04:35 Total Bilirubin 0.3 mg/dL (0.15-1.2) 11/21/21 10:59 AST 18 U/L (0-32) 11/21/21 10:59 ALT 22 U/L (0-33) 11/21/21 10:59 Alkaline Phosphatase 72 IU/L (35-105) 11/21/21 10:59 C-Reactive Protein 23.4 mg/L (0.0-4.9) H 11/22/21 04:35 Total Protein 6.4 g/dL (6.6-8.7) L 11/21/21 10:59 Albumin 4.1 g/dL (3.5-5.2) 11/21/21 10:59 Globulin 2.3 g/dL (1.3-4.6) 11/21/21 10:59 Procalcitonin 0.04 ng/mL (0-0.5) 11/21/21 13:58 Vitals Last Vital Signs Temp 98.3 F 11/22/21 08:00 Pulse 90 11/22/21 09:00 Resp 20 H 11/22/21 09:17 BP 151/87 11/22/21 08:00 Pulse Ox 92 11/22/21 09:00 O2 Del Method 11/22/21 09:00 O2 Flow Rate 3 11/22/21 09:00 FiO2 40 11/22/21 03:31 Discharge Plan Discharge Patient Disposition: Home Condition: Stable Prescriptions: New azithromycin 250 mg tablet 250 mg PO DAILY 6 Days Qty: 6 0RF Rx Instructions: start on day 2 of therapy methylprednisolone [Medrol (Jesus)] 4 mg tablets,dose pack 4 mg PO DAILY Qty: 21 0RF Continued albuterol sulfate [Ventolin HFA] 90 mcg/actuation HFA aerosol inhaler 2 inh inhalation .COMPLEX PRN (Reason: shortness of breath or wheezing) Qty: 36 2RF Rx Instructions: 2 inhalations inhalation every 4 hours up to 6 times a day PRN; buspirone 10 mg tablet 10 mg PO BID Qty: 60 2RF Rx Instructions: cholecalciferol (vitamin D3) 125 mcg (5,000 unit) capsule 5,000 unit PO DAILY Qty: 30 2RF cyanocobalamin (vitamin B-12) 1,000 mcg/mL solution 1,000 mcg IM .monthly Qty: 1 2RF Trelegy Ellipta 100-62.5-25 mcg blister with device 1 inh inhalation DAILY Qty: 60 2RF Claritin 10 mg tablet 10 mg PO DAILY Qty: 30 2RF metoprolol succinate [Toprol XL] 50 mg tablet extended release 24 hr 50 mg PO DAILY Qty: 30 2RF montelukast [Singulair] 10 mg tablet 10 mg PO DAILY Qty: 30 2RF naproxen 500 mg tablet 500 mg PO BID PRN (Reason: pain) Qty: 60 2RF paroxetine HCl [Paxil] 10 mg tablet 10 mg PO DAILY Qty: 30 2RF Daliresp 500 mcg tablet 500 mcg PO DAILY Qty: 30 2RF (DME) Easy Touch SheathLock Syrg-Ndl 3 mL 25 gauge x 1 syringe See Rx Instructions .ROUTE .MEDSUPPLY Qty: 1 2RF Rx Instructions: use monthly with Vitamin B12 multivitamin with folic acid [Tab-A-Beth] 400 mcg tablet 1 tab PO DAILY Qty: 30 2RF hydroxyzine pamoate 50 mg capsule 25 mg PO BID Qty: 60 0RF ipratropium-albuterol 0.5 mg-3 mg(2.5 mg base)/3 mL solution for nebulization 3 ml inhalation Q6H.RESPIRATORY Qty: 300 5RF folic acid 800 mcg tablet 800 mcg PO DAILY Qty: 30 2RF Rx Instructions: dose decrease gabapentin 400 mg capsule 400 mg PO BID Qty: 60 2RF Rx Instructions: nerve pain oxycodone 10 mg Tablet 10 mg PO Q4H PRN (Reason: Pain) fluticasone propionate 50 mcg/actuation spray,suspension 2 spray INTRANASAL DAILY PRN (Reason: Nasal Congestion) Discharge Orders: Discharge Order (Routine); Ordered 11/22/21 Ordered By: Sandra Dowd Referrals: Arnaldo Pimentel, PRINTING G[employer] CLOTH TENDER-C [Primary Care Provider] - 4-7 days Discharge Diet: Cardiac Discharge Activity: Increase activity as tolerated Patient Instructions: Opioid Safety Discharge Attestations Time Spent in Discharge Care*: less than 30 min Quality Metrics Clinical Quality Measures [ No reported AMI, CVA or VTE this stay] Coding Level of Care Code Acute Chg FW DC note Diagnoses Neuropathy G62.9 Vitamin B12 deficiency E53.8 INOCENCIO (obstructive sleep apnea) G47.33 Chronic respiratory failure with hypoxia and hypercapnia J96.11; J96.12 Acute exacerbation of chronic obstructive airways disease J44.1 Nicotine addiction F17.200 Osteoarthritis M19.90
== END 2021-11-22 12:49 | disposition home or self-care (01) ==
LOC: ER 10:11 → MEDSURG 14:24
PROVIDERS: Admitting Provider Internal Medicine; Emergency Provider Family Medicine; PCP Nurse Practitioner; Visit Provider Internal Medicine
DX: G62.9 Polyneuropathy, unspecified (principal); E53.8 Deficiency of other specified B group vitamins; G47.33 Obstructive sleep apnea (adult) (pediatric); J96.11 Chronic respiratory failure with hypoxia; J96.12 Chronic respiratory failure with hypercapnia; J44.1 Chronic obstructive pulmonary disease with (acute) exacerbation; M19.90 Unspecified osteoarthritis, unspecified site; Z99.81 Dependence on supplemental oxygen; F41.9 Anxiety disorder, unspecified; M81.0 Age-related osteoporosis without current pathological fracture; F17.210 Nicotine dependence, cigarettes, uncomplicated; I45.10 Unspecified right bundle-branch block
CPT/HCPCS: 36415; 36600; 71045; 74176; 80048; 80051; 80053; 82330; 82803; 82805; 83735; 84145; 85025; 85378; 86140; 93005; 94640; 94660; 96372; 96374; 99291; G0378; J1650; J2270; J7512

== ENCOUNTER 2021-12-01 13:25 | Emergency (ER) | payer MEDICARE, MEDICAID, SELFPAY ==
[2021-12-01] VITALS (9 sets, daily range): BP systolic 97–111; BP diastolic 56–78; PULSE 75–98; RESP 16–26; TEMP 36.8; O2SAT 92–95; BMI 29.2
--- NOTE | 2021-12-01 13:34 | W.ED.BACK ---
HPI - Back Pain/Injury General: Chief Complaint: Shortness of Breath/Dyspnea Stated Complaint: BACK PAIN; SOB Time Seen by Provider: 12/01/21 13:33 Source: patient Mode of arrival: ambulatory Limitations: no limitations History of Present Illness: 56-year-old female presents emergency room with complaints of back pain and shortness of breath. Patient has COPD and is chronically on 4 L by nasal cannula. States he has had chronic back pain for the last 2 months she relates that after having had a CT that Shireen various medications for does not really change the . She denies any fever sweats chills any change in her baseline cough. MD elicited complaint: back pain Pertinent past history: prior back pain Onset (ago): week(s) Timing: intermittent Severity: moderate Similar Symptoms Previously: Yes Quality: sharp Location: thoracic spine Radiation: none Exacerbating factors: movement Relieving factors: supine Associated symptoms: Deny abdominal pain, arthralgias, chills, change in bowel habits, difficulty walking, dysuria, fatigue, fecal incontinence, fever(s), hematuria, myalgias, nausea, numbness, syncope, tingling/numbness/burning, vomiting or weakness Review of Systems Const: Denies: fever(s), chills or fatigue ENMT: Denies: throat pain, ear or mastoid pain, nasal discharge or nasal congestion Card: Denies: syncope Resp: Reports: dyspnea; Denies: productive cough or non-productive cough GI: Denies: abdominal pain, nausea, vomiting, fecal incontinence or change in bowel habits : Denies: dysuria or hematuria Skin/Breast: Denies: rash or pruritus Neuro: Denies: difficulty walking PFSH ED PFSH: Medical History Acute exacerbation of chronic obstructive airways disease Allergic rhinitis due to pollen Anxiety Atherosclerosis Chronic respiratory failure with hypoxia and hypercapnia COPD (chronic obstructive pulmonary disease) History of mammogram 2018 Neuropathy Nicotine addiction INOCENCIO (obstructive sleep apnea) Osteoarthritis Osteoporosis Pelvic fracture 2018 Personal history of nicotine dependence Rib fracture 2018 Sinusitis Spinal fracture Vitamin B12 deficiency Vitamin D deficiency Surgical History Clavicle fracture H/O adenoidectomy History of appendectomy 1986 History of right shoulder fracture April 2017 Hx of hysterectomy Hx of tonsillectomy Hx of tubal ligation Family History Mother Cancer COPD exacerbation Asthma Father Cancer Social History Smoking and tobacco status: current every day smoker cigarettes Packs smoked per day: 2 Years cigarettes smoked: 40 Second hand smoke exposure: Yes Smoking risk assessment/counseling performed?: Yes Alcohol intake: current Alcohol intake frequency: 0-2 Drinks per Day Desire information about alcohol rehabilitation?: No Counseling given: Yes Desire information about substance/drug rehabilitation?: No Counseling given: No Adopted: No Caregiver/support person: No Lives independently: Yes Household members: none Housing: House Marital status: Legally Number of children: 2 service: No Current occupational status: unemployed and disabled History of recent travel: No Current gender identity: Female Physical Exam Const: GENERAL APPEARANCE: cooperative and comfortable ORIENTATION/CONSCIOUSNESS: Yes awake, Yes oriented to person, Yes oriented to place and Yes oriented to time HENMT: COMMON NORMALS: normocephalic, atraumatic and hearing grossly normal bilaterally HEAD & SCALP: normocephalic and atraumatic Resp: COMMON NORMALS: normal respiratory effort, No retractions and No use of accessory muscles AUSCULTATION: wheezes Cardio: COMMON NORMALS: regular rate, regular rhythm and No murmurs present (Cardio) RATE: regular rate RHYTHM: regular rhythm GI: COMMON NORMALS: Soft to palpation and No hepatosplenomegaly present AUSCULTATION: Yes normoactive bowel sounds PALPATION: Yes Soft to palpation, No Tenderness to palpation present (GI), No Guarding due to palpation present (GI) and Yes No hepatosplenomegaly present Extremity: COMMON NORMALS: normal to inspection, capillary refill normal, no clubbing, cyanosis or edema, no calf tenderness and no pedal edema Neuro: SENSORIUM/ORIENTATION: Yes oriented to person, Yes oriented to place and Yes oriented to time Skin: COMMON NORMALS: no rashes or lesions noted GENERAL SKIN EXAM: no rashes or lesions noted Course Vital Signs: Vital signs: Vital Signs Temperature 98.2 F 12/01/21 13:33 Pulse Rate 75 12/01/21 17:30 Respiratory Rate 24 H 12/01/21 17:30 Blood Pressure 103/61 12/01/21 17:30 Pulse Oximetry 95 12/01/21 17:30 Oxygen Delivery Me thod 12/01/21 17:30 Oxygen Flow Rate 4 12/01/21 17:30 MDM - Back Pain/Injury Medical Decision Making Improved with interventions in the ER. The back pain is chronic and encouraged her to follow-up with her primary care doctor for that can use anti-inflammatories. Prednisone taper given here will help some. Discharge patient home use albuterol. Also started on doxycycline and the oral prednisone taper return if is worsening problems. Medical Records I reviewed the patient's medical records. Labs I reviewed the patient's lab results. : 12/01/21 16:30 12/01/21 16:30 Radiology Impressions Chest X-Ray 12/01/21 13:51 IMPRESSION: No acute findings. Laboratory Results WBC 13.6 10^3/uL (4.0-10.0) H 12/01/21 16:30 RBC 4.07 10^6/uL (4.1-5.3) L 12/01/21 16:30 Hgb 12.6 g/dL (11.5-15.3) 12/01/21 16:30 Hct 41.1 % (37.0-47.0) 12/01/21 16:30 MCV 101.0 fl (81-99) H 12/01/21 16:30 MCH 31.0 pg (28.0-34.0) 12/01/21 16:30 MCHC 30.7 g/dL (30.0-36.0) 12/01/21 16:30 RDW 12.7 % (12.1-15.1) 12/01/21 16:30 Plt Count 442 10^3/cmm (130-400) H 12/01/21 16:30 MPV 9.3 fL (7.4-10.4) 12/01/21 16:30 Neut % (Auto) 80.7 % 12/01/21 16:30 Lymph % (Auto) 11.0 % 12/01/21 16:30 Saline % (Auto) 4.4 % 12/01/21 16:30 Eos % (Auto) 0.7 % 12/01/21 16:30 Baso % (Auto) 1.0 % 12/01/21 16:30 Neut # (Auto) 10.98 10^3/uL (1.8-7.7) H 12/01/21 16:30 Lymph # (Auto) 1.5 10^3/uL (0.8-4.8) 12/01/21 16:30 Saline # (Auto) 0.6 10^3/uL (0.2-0.9) 12/01/21 16:30 Eos # (Auto) 0.1 10^3/uL (0.0-0.8) 12/01/21 16:30 Baso # (Auto) 0.1 10^3/uL (0.0-0.1) 12/01/21 16:30 Nucleated RBC % (auto) 0 % 12/01/21 16:30 Nucleated RBCs # 0.0 /100WBC 12/01/21 16:30 Sodium 143 mmol/L (136-145) 12/01/21 16:30 Potassium 5.3 mmol/L (3.5-5.1) H 12/01/21 16:30 Chloride 101 mmol/L (98-107) 12/01/21 16:30 Carbon Dioxide 32 mmol/L (22-29) H 12/01/21 16:30 Anion Gap 15.3 (5-19) 12/01/21 16:30 BUN 13 mg/dL (6-20) 12/01/21 16:30 Creatinine 0.5 mg/dL (0.5-0.9) 12/01/21 16:30 GFR Calculation 128.1 mL/min (90-130) 12/01/21 16:30 Glucose 261 mg/dL (65-115) H 12/01/21 16:30 Calculated Osmolality 305 mOsm/kg (285-295) H 12/01/21 16:30 Calcium 9.5 mg/dL (8.5-10.5) 12/01/21 16:30 Total Bilirubin 0.2 mg/dL (0.15-1.2) 12/01/21 16:30 AST 18 U/L (0-32) 12/01/21 16:30 ALT 13 U/L (0-33) 12/01/21 16:30 Alkaline Phosphatase 105 IU/L (35-105) 12/01/21 16:30 Total Protein 7.1 g/dL (6.6-8.7) 12/01/21 16:30 Albumin 3.7 g/dL (3.5-5.2) 12/01/21 16:30 Globulin 3.4 g/dL (1.3-4.6) 12/01/21 16:30 Discharge Plan Discharge Patient Disposition: Home Clinical Impression: Acute exacerbation of chronic obstructive airways disease, Back pain, chronic Condition: Stable Prescriptions: New prednisone 20 mg tablet 20 mg PO TID Qty: 15 0RF Rx Instructions: 1 p.o. 3 times daily x3 days, 1 p.o. twice daily x2 days, 1 p.o. daily x2 days albuterol sulfate 90 mcg/actuation HFA aerosol inhaler 2 inh INHALATION Q4H PRN (Reason: shortness of breath or wheezing) Qty: 18 0RF No Action albuterol sulfate [Ventolin HFA] 90 mcg/actuation HFA aerosol inhaler 2 inh inhalation .COMPLEX PRN (Reason: shortness of breath or wheezing) Qty: 36 2RF Rx Instructions: 2 inhalations inhalation every 4 hours up to 6 times a day PRN; buspirone 10 mg tablet 10 mg PO BID Qty: 60 2RF Rx Instructions: cholecalciferol (vitamin D3) 125 mcg (5,000 unit) capsule 5,000 unit PO DAILY Qty: 30 2RF cyanocobalamin (vitamin B-12) 1,000 mcg/mL solution 1,000 mcg IM .monthly Qty: 1 2RF Trelegy Ellipta 100-62.5-25 mcg blister with device 1 inh inhalation DAILY Qty: 60 2RF Claritin 10 mg tablet 10 mg PO DAILY Qty: 30 2RF metoprolol succinate [Toprol XL] 50 mg tablet extended release 24 hr 50 mg PO DAILY Qty: 30 2RF montelukast [Singulair] 10 mg tablet 10 mg PO DAILY Qty: 30 2RF naproxen 500 mg tablet 500 mg PO BID PRN (Reason: pain) Qty: 60 2RF paroxetine HCl [Paxil] 10 mg tablet 10 mg PO DAILY Qty: 30 2RF (DME) Easy Touch SheathLock Syrg-Ndl 3 mL 25 gauge x 1 syringe See Rx Instructions .ROUTE .MEDSUPPLY Qty: 1 2RF Rx Instructions: use monthly with Vitamin B12 multivitamin with folic acid [Tab-A-Beth] 400 mcg tablet 1 tab PO DAILY Qty: 30 2RF ipratropium-albuterol 0.5 mg-3 mg(2.5 mg base)/3 mL solution for nebulization 3 ml inhalation Q6H.RESPIRATORY Qty: 300 5RF folic acid 800 mcg tablet 800 mcg PO DAILY Qty: 30 2RF Rx Instructions: dose decrease gabapentin 400 mg capsule 400 mg PO BID Qty: 60 2RF Rx Instructions: nerve pain tizanidine 4 mg tablet 4 mg PO BID Qty: 60 0RF hydroxyzine pamoate 50 mg capsule 25 mg PO BID Qty: 60 2RF Daliresp 500 mcg tablet 500 mcg PO DAILY Qty: 30 2RF oxycodone 10 mg Tablet 10 mg PO Q4H PRN (Reason: Pain) fluticasone propionate 50 mcg/actuation spray,suspension 2 spray INTRANASAL DAILY PRN (Reason: Nasal Congestion) Medrol (Jesus) 4 mg tablets,dose pack 4 mg PO DAILY Qty: 21 0RF Discharge Orders: Discharge ED (Routine); Ordered 12/01/21 Ordered By: Tom Ahn Referrals: Arnaldo Pimentel, TANNING DRUM OPERATORGreggC [Primary Care Provider] - Patient Instructions: Opioid Safety Activity Restrictions/Additional Instructions: Steroid taper doxycycline albuterol as needed. Follow-up with your primary care doctor within the next 2 days. Coding Level of Care Code ED Chief Operator Reformer for Kaylah Fwd Exam Detailed
--- NOTE | 2021-12-01 13:51 | XRR_ITS ---
PROCEDURE INFORMATION: Exam: XR Chest Exam date and time: 12/01/2021 2:52 PM Age: 56 years old Clinical indication: Cough and dyspnea; Prior surgery; Surgery type: RT clavicle; Additional info: Dyspnea/cough TECHNIQUE: Imaging protocol: Radiologic exam of the chest. Views: 1 view. COMPARISON: CR XR chest 1V portable [id number] 11/21/2021 9:59 AM FINDINGS: Lungs: Hyperinflated lungs and mild diffuse coarsening of the lung parenchyma. No consolidation. Pleural spaces: No pleural effusion. No pneumothorax. Heart/Mediastinum: No cardiomegaly. Bones/joints: Intact buttressing plate and fixation screws again noted at the right clavicle. Visualized osseous structures are intact. XR/XR chest 1V portable [id number] IMPRESSION: No acute findings.
[2021-12-01] MEDS: ketorolac 30 mg/mL INJ IVP (14:08)
--- NOTE | 2021-12-01 14:26 | ECG_ITS ---
[facility] Test Date: 2021-12-01 Pat Name: Hilary Alegre Department: Room: Gender: Female Color Strainer: : 1965 Requested By: Tom Vaughn Order Number: [id number] Aidan MD: Haydee Smith M.D. Measurements Intervals [place] Rate: 79 P: 57 AL: 132 QRS: 52 QRSD: 101 T: 60 QT: 373 QTc: 428 Interpretive Statements SINUS RHYTHM Compared to ECG 11/21/2021 10:22:16 Sinus tachycardia no longer present Incomplete right bundle-branch block no longer present Electronically Signed On 12-01-2021 19:13:13 CDT by Haydee Smith M.D. [email or web address] [email or web address]![email or web address] spring[facility] medical centerBOXX [email or web address]/[id number]
[2021-12-01] MEDS: ipratropium-albuterol 3 mL Neb INHALATION (14:32)
[2021-12-01 16:46] LABS: Basophils # 0.1 10^3/uL (0.0-0.1); Eosinophils # 0.1 10^3/uL (0.0-0.8); Eosinophils % 0.7 %; Hematocrit 41.1 % (37.0-47.0); Hemoglobin 12.6 g/dL (11.5-15.3); Lymphocytes # 1.5 10^3/uL (0.8-4.8); Mean Corpuscular HGB Conc 30.7 g/dL (30.0-36.0); Mean Platelet Volume 9.3 fL (7.4-10.4); Monocytes # 0.6 10^3/uL (0.2-0.9); Monocytes % 4.4 %; Neutrophils # 10.98 10^3/uL (1.8-7.7); Neutrophils % 80.7 %; Nucleated Red Blood Cells % 0 %; Platelet Count 442 10^3/cmm (130-400); Red Blood Count 4.07 10^6/uL (4.1-5.3); Red Cell Distribution Width 12.7 % (12.1-15.1); White Blood Count 13.6 10^3/uL (4.0-10.0)
[2021-12-01 17:17] LABS: Alanine Aminotransferase 13 U/L (0-33); Albumin Level 3.7 g/dL (3.5-5.2); Alkaline Phosphatase 105 IU/L (35-105); Anion Gap 15.3 (5-19); Aspartate Amino Transferase 18 U/L (0-32); Blood Urea Nitrogen 13 mg/dL (6-20); Calcium 9.5 mg/dL (8.5-10.5); Carbon Dioxide 32 mmol/L (22-29); Chloride 101 mmol/L (98-107); Globulin 3.4 g/dL (1.3-4.6); Glomerular Filtration Rate 128.1 mL/min (90-130); Glucose 261 mg/dL (65-115); Osmolality Calculated 305 mOsm/kg (285-295); Potassium 5.3 mmol/L (3.5-5.1); Sodium 143 mmol/L (136-145); Total Bilirubin 0.2 mg/dL (0.15-1.2); Total Protein 7.1 g/dL (6.6-8.7)
[2021-12-01] MEDS: HYDROcodone-acetaminophen 5-325 mg Tablet 1 TAB PO (18:22)
[2021-12-01] MEDS: doxycycline 100 mg Tablet PO (20:19)
[2021-12-01] MEDS: predniSONE 20 mg Tablet 60 MG PO (20:19)
== END 2021-12-01 20:25 | disposition home or self-care (01) ==
PROVIDERS: Emergency Provider Family Medicine; PCP Nurse Practitioner
DX: J44.1 Chronic obstructive pulmonary disease with (acute) exacerbation (principal); G89.29 Other chronic pain; M54.9 Dorsalgia, unspecified; F17.210 Nicotine dependence, cigarettes, uncomplicated
CPT/HCPCS: 71045; 80053; 85025; 93005; 94640; 96374; 96375; 99285; J1885; J2930; J7512

== ENCOUNTER → 2022-01-30 10:13 | Outpatient (BNVA) | payer MEDICARE, MEDICAID, SELFPAY | PROVIDERS: PCP Nurse Practitioner; Visit Provider Nurse Practitioner | DX: M54.9 Dorsalgia, unspecified (principal); J30.1 Allergic rhinitis due to pollen; E53.8 Deficiency of other specified B group vitamins; M79.10 Myalgia, unspecified site; J44.1 Chronic obstructive pulmonary disease with (acute) exacerbation; F41.9 Anxiety disorder, unspecified; J43.1 Panlobular emphysema | CPT/HCPCS: 72072; 72100 ==

== ENCOUNTER 2022-02-04 05:23 | Inpatient (IN) | payer MEDICARE, MEDICAID, SELFPAY ==
[2022-02-04] VITALS (97 sets, daily range): BP systolic 80–121; BP diastolic 53–76; PULSE 73–105; RESP 14–19; TEMP 36.5–37.7; O2SAT 89–98; BMI 30.1
--- NOTE | 2022-02-04 05:28 | XRR_ITS ---
PROCEDURE INFORMATION: Exam: XR Chest Exam date and time: 02/04/2022 5:38 AM Age: 56 years old Clinical indication: Dyspnea; Additional info: Resp failure TECHNIQUE: Imaging protocol: Radiologic exam of the chest. Views: 1 view. COMPARISON: CR (CHEST, ) 12/01/2021 2:52 PM FINDINGS: Tubes, catheters and devices: Interval placement of an endotracheal tube with tip in the midline, approximately 5.2 cm from the philip. Interval placement of a nasogastric tube with tip in the left upper abdominal region. Lungs: Moderate right basilar airspace opacities are seen, which may represent pneumonia. Recommend follow-up until complete resolution. Minimal accentuation of the perihilar pulmonary vascularity is seen. Pleural spaces: No left pleural effusion. No pneumothorax. Heart/Mediastinum: There is shift of the mediastinum towards the right. The heart size is normal. Bones/joints: No acute osseous abnormalities seen. Postsurgical changes of the right distal clavicle are seen with compression plate and screws. XR/XR chest 1V portable [id number] IMPRESSION: 1. Endotracheal tube and nasogastric tube, as noted above. 2. Moderate right basilar airspace opacities, which may represent pneumonia. Recommend follow-up until complete resolution. Minimal accentuation of the perihilar pulmonary vascularity.
--- NOTE | 2022-02-04 05:28 | ECG_ITS ---
[facility] Test Date: 2022-02-04 Pat Name: Hilary Alegre Department: Room: ICU10 Gender: Female Spearer: : 1965 Requested By: Leonard Almaguer Order Number: [id number] Aidan MD: Haydee Smith M.D. Measurements Intervals [place] Rate: 92 P: 48 SD: 157 QRS: 66 QRSD: 109 T: 75 QT: 390 QTc: 482 Interpretive Statements SINUS RHYTHM POSSIBLE RIGHT VENTRICULAR CONDUCTION DELAY [RSR (QR) IN V1/V2] Compared to ECG 12/01/2021 14:26:30 No significant changes Electronically Signed On 02-04-2022 21:20:09 CDT by Haydee Smith M.D. [id number]
[2022-02-04] MEDS: ipratropium-albuterol 3 mL Neb INHALATION ×6 (05:42→23:51)
[2022-02-04 05:43] LABS: ABG PH Result 7.31 (7.35-7.45); Arterial Blood Gas Hematocrit 36.9 % (37-47); Base Excess ABG 8.3 mmol/L (-2.0-2.0); Blood Gas Allen Test Pos; Blood Gas Sample Site Radial, right; Blood Gas Sample Type Arterial; HCO3 ABG 36.9 mmol/L (22-26); HGB O2 Sat 94.5 % (95-100); Methemoglobin 0.9 % (0.4-1.5); Oxygen Device VENT
[2022-02-04] MEDS: piperacillin-tazobactam 4.5 GM in sodium chloride 0.9% (plus) 50 ML IV (05:49)
[2022-02-04] MEDS: sodium chloride 0.9% 1,000 ML 999 ML IV (05:49)
[2022-02-04] MEDS: propofol 10 mg/mL SDV 20 mL 100 MG IVP (05:52)
--- NOTE | 2022-02-04 05:55 | PC.NURSE ---
Dr. Ahn at bedside performing central line procedure.
[2022-02-04 05:58] LABS: Basophils # 0.1 10^3/uL (0.0-0.1); Basophils % 0.7 %; Eosinophils # 0.2 10^3/uL (0.0-0.8); Eosinophils % 0.8 %; Hematocrit 40.2 % (37.0-47.0); Hemoglobin 12.1 g/dL (11.5-15.3); Lymphocytes # 1.6 10^3/uL (0.8-4.8); Lymphocytes % 7.7 %; Mean Corpuscular HGB Conc 30.1 g/dL (30.0-36.0); Mean Corpuscular Hemoglobin 30.8 pg (28.0-34.0); Mean Corpuscular Volume 102.3 fl (81-99); Mean Platelet Volume 10.7 fL (7.4-10.4); Monocytes # 1.5 10^3/uL (0.2-0.9); Monocytes % 7.3 %; Neutrophils # 16.76 10^3/uL (1.8-7.7); Neutrophils % 82.9 %; Nucleated Red Blood Cells % 0 %; Platelet Count 350 10^3/cmm (130-400); Red Blood Count 3.93 10^6/uL (4.1-5.3); Red Cell Distribution Width 13.8 % (12.1-15.1); White Blood Count 20.2 10^3/uL (4.0-10.0)
--- NOTE | 2022-02-04 06:00 | PC.NURSE ---
RN spoke with sister and to give update on current condition. Sister Graciela requests for updates to be given as appropriate. [place] ; ; Work [phone]; Home
[2022-02-04 06:03] LABS: INR 0.99 (0.8-1.2)
[2022-02-04 06:05] LABS: D Dimer 2.02 ug/mIFEU (0-0.59)
[2022-02-04 06:09] LABS: Lactic Sepsis W/Reflex 0.7 mmol/L (0.5-2.2)
[2022-02-04 06:10] LABS: SARS Covid-2 Antigen negative (Negative)
[2022-02-04 06:11] LABS: Troponin(5th) Baseline 11 ng/L (0-10)
--- NOTE | 2022-02-04 06:18 | XRR_ITS ---
PROCEDURE INFORMATION: Exam: XR Chest Exam date and time: 02/04/2022 6:21 AM Age: 56 years old Clinical indication: Device placement; Other: Central line placement TECHNIQUE: Imaging protocol: Radiologic exam of the chest. Views: 1 view. COMPARISON: CR (CHEST, ) 02/04/2022 5:38 AM FINDINGS: Tubes, catheters and devices: Endotracheal tube and nasogastric tube are seen without change. Interval placement of a left subclavian central venous catheter with tip overlying the cavoatrial junction region. Lungs: Unchanged lung volumes. Unchanged right basilar moderate airspace opacities, suspicious for pneumonia. Recommend follow-up until complete resolution. Minimal perihilar interstitial prominence is once again seen. Pleural spaces: No left pleural effusion. No pneumothorax. Heart/Mediastinum: There is unchanged mild shift of the mediastinum towards the right. The heart size is normal. Bones/joints: No acute osseous abnormalities seen. Postsurgical changes of the right clavicle are once again seen. XR/XR chest 1V portable [id number] IMPRESSION: 1. Interval placement of left subclavian central venous catheter with tip overlying the cavoatrial junction. No pneumothorax. Unchanged endotracheal tube and nasogastric tube. 2. No significant change in the appearance of the lungs in correlation with the prior exam.
[2022-02-04 06:20] LABS: Alanine Aminotransferase 8 U/L (0-33); Albumin Level 3.5 g/dL (3.5-5.2); Alkaline Phosphatase 84 U/L (35-105); Anion Gap 10.8 (5-19); Aspartate Amino Transferase 11 U/L (0-32); Blood Urea Nitrogen 16 mg/dL (6-20); Calcium 8.4 mg/dL (8.5-10.5); Carbon Dioxide 36 mmol/L (22-29); Chloride 98 mmol/L (98-107); Glomerular Filtration Rate 165.7 mL/min (90-130); Glucose 165 mg/dL (65-115); NT Pro B Type Natriuretic Pept 317 pg/mL (0-125); Osmolality Calculated 297 mOsm/kg (285-295); Potassium 3.8 mmol/L (3.5-5.1); Sodium 141 mmol/L (136-145); Total Bilirubin 0.2 mg/dL (0.15-1.2); Total Protein 6.5 g/dL (6.6-8.7)
--- NOTE | 2022-02-04 06:31 | ED_ITS ---
HPI - SOB/Dyspnea General: Chief Complaint: Shortness of Breath/Dyspnea Stated Complaint: RESP DISRESS Time Seen by Provider: 02/04/22 05:30 Source: EMS Mode of arrival: EMS Limitations: other (I-gel in place on arrival) History of Present Illness: HPI Narrative: 56-year-old female who presents to the emergency room via EMS. EMS was initially paged out for respiratory distress on arrival she was hypoxic and on monitoring hypercapnic with an end-tidal CO2 of 77. I gave patient high flow oxygen and then attempted CPAP neither of which work were unable to get an IV placed and an IO was placed she was given ketamine total of 330 mg at the IO site she is also given 80 of rocuronium. She did not have the expected reaction and an EJ IV was placed. During this time they are attempting to bag patient and then an eye gel was placed. After the EJ IV was placed she was given another 80 of rocuronium and another 100 mg of ketamine via that route. On arrival here the IO is compromised it is not seizures in the bone and lungs easily removed there is minimal infiltration at the site. Immediately upon arrival the eye gel was removed and the patient was intubated with an 8.0 ET tube on first attempt. Sats remained in the upper 90s. Sketchy history from family via EMS that patient not been feeling well for several days has been coughing and short of breath she is well-known to the ER has been here several times for his COPD related exacerbations. There is report of her having been around COVID positive persons. There is no reports of chest pain. We were able to contact her via phone. The nursing staff updated the on patient's current condition and he told them that he would come in sometime later today, in the interim he would call for updates. MD elicited complaint: shortness of breath and cough Pertinent past history: COPD Onset (ago): day(s) Context: recent illness Timing: constant Severity: severe Known history of: COPD Associated symptoms: Reports chest congestion and cough Treatment prior to arrival: oxygen, bronchodilator and intubation (Failed endotracheal intubation attempt I-gel placed by EMS) Review of Systems General: Reports: ROS unobtainable due to endotracheal tube Resp: Reports: chest congestion [facility] PFSH: Medical History (Updated 02/04/22 @ 08:35 by Shree Milian MD) Acute exacerbation of chronic obstructive airways disease Allergic rhinitis due to pollen Anxiety Atherosclerosis Chronic pain Chronic respiratory failure with hypoxia and hypercapnia COPD (chronic obstructive pulmonary disease) Chronically on 4 L of oxygen History of mammogram 2018 Hypertension Neuropathy Nicotine addiction INOCENCIO (obstructive sleep apnea) Osteoarthritis Osteoporosis Pelvic fracture 2018 Personal history of nicotine dependence Rib fracture 2018 Sinusitis Spinal fracture Vitamin B12 deficiency Vitamin D deficiency Surgical History Clavicle fracture H/O adenoidectomy History of appendectomy 1986 History of right shoulder fracture April 2017 Hx of hysterectomy Hx of tonsillectomy Hx of tubal ligation Family History Mother Cancer COPD exacerbation Asthma Father Cancer Social History Smoking and tobacco status: current every day smoker cigarettes Packs smoked pe r day: 2 Years cigarettes smoked: 40 Second hand smoke exposure: Yes Smoking risk assessment/counseling performed?: Yes Alcohol intake: current Alcohol intake frequency: 0-2 Drinks per Day Desire information about alcohol rehabilitation?: No Counseling given: Yes Desire information about substance/drug rehabilitation?: No Counseling given: No Adopted: No Caregiver/support person: No Lives independently: Yes Household members: none Housing: House Marital status: Legally Number of children: 2 service: No Current occupational status: unemployed and disabled History of recent travel: No Current gender identity: Female Physical Exam HENMT: COMMON NORMALS: normocephalic, atraumatic and hearing grossly normal bilaterally HEAD & SCALP: normocephalic and atraumatic Resp: AUSCULTATION: rales on the right at the base, wheezes and diminished lung sounds Cardio: COMMON NORMALS: regular rate, regular rhythm and No murmurs present (Cardio) RATE: regular rate RHYTHM: regular rhythm GI: COMMON NORMALS: Soft to palpation AUSCULTATION: Yes normoactive bowel sounds PALPATION: Yes Soft to palpation and No Tenderness to palpation present (GI) Extremity: COMMON NORMALS: normal to inspection, capillary refill normal, no clubbing, cyanosis or edema, no calf tenderness and no pedal edema Skin: COMMON NORMALS: no rashes or lesions noted GENERAL SKIN EXAM: no rashes or lesions noted Procedures Central Line Placement Left SC: Time Out Performed: Yes Prep: mask, gown and gloves Central Line Prep: Chlorhexidine scrub Ultrasound Used for Placement: Yes Central Line Lumen Inserted: triple Post Procedure: sutured in place, good blood return, all ports aspirated, flushed, capped and sterile dressing applied Post Procedure X-Ray: tip of catheter in good position and no pneumothorax seen Patient Tolerated Procedure: well Complications: none Intubation Time out performed: No sedative: Ketamine (440 mg total given by EMS prior to arrival) paralytic: Rocuronium (160 mg total given by EMS prior to arrival) Laryngoscope: fiber optic video scope Assist Device Used: fiber optic device ET Tube Size: 8 ET Tube Uncuffed: No Tube Secured Depth (cm): 23 Tube Secured Location: teeth Tube Placement Confirmation: visualized tube passing through cords, equal breath sounds bilaterally, no breath sounds over epigastrium and confirmation by capnometry Patient Tolerated Procedure: well Intubation Complications: none Additional Comments: Chest x-ray confirms placement Course Vital Signs: Vital signs: Vital Signs Temperature 99.4 F 02/04/22 10:31 Pulse Rate 86 02/04/22 16:15 Respiratory Rate 18 02/04/22 16:11 Blood Pressure 83/58 02/04/22 16:00 Pulse Oximetry 94 02/04/22 16:11 Oxygen Delivery Me thod 02/04/22 16:00 Fraction of Inspir ed Oxygen 50 02/04/22 16:11 MDM - SOB/Dyspnea Medical Decision Making Acute on chronic respiratory failure with hypercapnia and hypoxia. Immediately after arrival I gel was removed and replaced with ET tube without complication. Patient on multiple drips staff is having difficulty with maintaining IV access left subclavian line placed without difficulty ET tube and subclavian line are both confirmed by chest x-ray. Chest x-ray shows right lower lobe pneumonia we will admit to ICU started on Vanco Zosyn and Levaquin D-dimer elevated will get CTA chest and follow-through abdomen Medical Records I reviewed the patient's medical records. Lab Data I reviewed the patient's lab results. : 02/04/22 05:35 02/04/22 05:35 Labs/Radiology: Radiology Impressions Chest X-Ray 02/04/22 06:18 IMPRESSION: 1. Interval placement of left subclavian central venous catheter with tip overlying the cavoatrial junction. No pneumothorax. Unchanged endotracheal tube and nasogastric tube. 2. No significant change in the appearance of the lungs in correlation with the prior exam. Chest/Abdomen/Pelvis CT 02/04/22 06:45 IMPRESSION: 1. No central pulmonary embolism. Beyond the segmental branches opacification is suboptimal. Cannot exclude distal pulmonary emboli. 2. Enlarged pulmonary artery. No RIGHT heart strain. 3. Partial atelectasis RIGHT middle and RIGHT lower lobes with volume loss in the RIGHT thorax. 4. Nasogastric and endotracheal tubes in good position. 5. No ascites. 6. Mildly prominent, indeterminate mediastinal and hilar lymph nodes. 7. Mild interstitial edema and focal pneumonitis central RIGHT upper lobe. 8. New since 11/21/2021 are minimal compression fractures and L1 and L2. 9. Remote rib fractures, bilateral. 10. New thoracic spine osteoporotic compression fractures since 10/01/2021 at T6, T7 and T8. Laboratory Results WBC 20.2 10^3/uL (4.0-10.0) H 02/04/22 05:35 RBC 3.93 10^6/uL (4.1-5.3) L 02/04/22 05:35 Hgb 12.1 g/dL (11.5-15.3) 02/04/22 05:35 Hct 40.2 % (37.0-47.0) 02/04/22 05:35 MCV 102.3 fl (81-99) H 02/04/22 05:35 MCH 30.8 pg (28.0-34.0) 02/04/22 05:35 MCHC 30.1 g/dL (30.0-36.0) 02/04/22 05:35 RDW 13.8 % (12.1-15.1) 02/04/22 05:35 Plt Count 350 10^3/cmm (130-400) 02/04/22 05:35 MPV 10.7 fL (7.4-10.4) H 02/04/22 05:35 Neut % (Auto) 82.9 % 02/04/22 05:35 Lymph % (Auto) 7.7 % 02/04/22 05:35 Wilkes % (Auto) 7.3 % 02/04/22 05:35 Eos % (Auto) 0.8 % 02/04/22 05:35 Baso % (Auto) 0.7 % 02/04/22 05:35 Neut # (Auto) 16.76 10^3/uL (1.8-7.7) H 02/04/22 05:35 Lymph # (Auto) 1.6 10^3/uL (0.8-4.8) 02/04/22 05:35 Wilkes # (Auto) 1.5 10^3/uL (0.2-0.9) H 02/04/22 05:35 Eos # (Auto) 0.2 10^3/uL (0.0-0.8) 02/04/22 05:35 Baso # (Auto) 0.1 10^3/uL (0.0-0.1) 02/04/22 05:35 Nucleated RBC % (auto) 0 % 02/04/22 05:35 Nucleated RBCs # 0.0 /100WBC 02/04/22 05:35 PT 13.40 SECONDS (12.1-14.9) 02/04/22 05:35 INR 0.99 (0.8-1.2) 02/04/22 05:35 D-Dimer 2.02 ug/mIFEU (0-0.59) H 02/04/22 05:35 Specimen Type Arterial 02/04/22 06:22 Sample Site Radial, right 02/04/22 06:22 ABG pH 7.27 (7.35-7.45) L 02/04/22 06:22 ABG pCO2 75.9 mmHg (35-45) H* 02/04/22 06:22 ABG pO2 46.2 mmHg (80.0-100.0) L 02/04/22 06:22 ABG HCO3 34.9 mmol/L (22-26) H 02/04/22 06:22 ABG Base Excess 5.9 mmol/L (-2.0-2.0) H 02/04/22 06:22 Hans Test Pos 02/04/22 06:22 Hematocrit 35.2 % (37-47) L 02/04/22 06:22 Hgb O2 Saturation 94.5 % (95-100) L 02/04/22 05:27 Carboxyhemoglobin 5.0 %THgb (0.4-20.1) 02/04/22 05:27 Methemoglobin 0.9 % (0.4-1.5) 02/04/22 05:27 Total Hemoglobin 12.0 g/dL (12-16) 02/04/22 05:27 O2 Delivery Device Vent 02/04/22 06:22 FiO2 50.0 % 02/04/22 06:22 Tidal Volume 0.40 02/04/22 05:27 PEEP 5.0 cmH20 02/04/22 06:22 Geospatial Information Scientist ID [place] 02/04/22 06:22 Sodium 141 mmol/L (136-145) 02/04/22 05:35 Potassium 3.8 mmol/L (3.5-5.1) 02/04/22 05:35 Chloride 98 mmol/L (98-107) 02/04/22 05:35 Carbon Dioxide 36 mmol/L (22-29) H 02/04/22 05:35 Anion Gap 10.8 (5-19) 02/04/22 05:35 BUN 16 mg/dL (6-20) 02/04/22 05:35 Creatinine 0.4 mg/dL (0.5-0.9) L 02/04/22 05:35 GFR Calculation 165.7 mL/min (90-130) H 02/04/22 05:35 Glucose 165 mg/dL (65-115) H 02/04/22 05:35 Estimat Average Glucose 100 02/04/22 05:35 Hemoglobin A1c 5.1 % (4.0-6.0) 02/04/22 05:35 Calculated Osmolality 297 mOsm/kg (285-295) H 02/04/22 05:35 Lactic Acid 0.7 mmol/L (0.5-2.2) 02/04/22 05:35 Calcium 8.4 mg/dL (8.5-10.5) L 02/04/22 05:35 Total Bilirubin 0.2 mg/dL (0.15-1.2) 02/04/22 05:35 AST 11 U/L (0-32) 02/04/22 05:35 ALT 8 U/L (0-33) 02/04/22 05:35 Alkaline Phosphatase 84 U/L (35-105) 02/04/22 05:35 Troponin T Baseline 11 ng/L (0-10) H 02/04/22 05:35 Troponin T 120 Minute 9.26 ng/L (0-10) 02/04/22 07:35 Delta Troponin T -1.74 ABS# (0-10) L 02/04/22 07:35 NT-Pro-B Natriuret Pep 317 pg/mL (0-125) H 02/04/22 05:35 Total Protein 6.5 g/dL (6.6-8.7) L 02/04/22 05:35 Albumin 3.5 g/dL (3.5-5.2) 02/04/22 05:35 Globulin 3.0 g/dL (1.3-4.6) 02/04/22 05:35 Urine Color Yellow (Yellow) 02/04/22 05:43 Urine Appearance Sl hazy (CLEAR) A 02/04/22 05:43 Urine pH 6.5 (5-7) 02/04/22 05:43 Ur Specific [place] 1.015 (1.005-1.030) 02/04/22 05:43 Urine Protein Trace (Negative) 02/04/22 05:43 Urine Glucose (UA) Norm (Normal) 02/04/22 05:43 Urine Ketones Negative (Negative) 02/04/22 05:43 Urine Blood Neg (Negative) 02/04/22 05:43 Urine Nitrate Negative (Negative) 02/04/22 05:43 Urine Bilirubin Neg (Negative) 02/04/22 05:43 Urine Urobilinogen Norm mg/dL (Negative) 02/04/22 05:43 Ur Leukocyte Esterase Negative (Negative) 02/04/22 05:43 Urine RBC None /hpf (0-2) 02/04/22 05:43 Urine WBC 0-4 /hpf (0-5) H 02/04/22 05:43 Ur Squamous Epith Cells 0-4 /hpf (0-5) H 02/04/22 05:43 Amorphous Sediment 2+ /hpf 02/04/22 05:43 Urine Bacteria 1+ /hpf (NONE) H 02/04/22 05:43 Coarse Granular Casts 0-4 /lpf H 02/04/22 05:43 SARS-CoV-2 Ag (Rapid) negative (Negative) 02/04/22 05:43 Critical Care Time Critical Care Time: Critical Care Time: Yes Total Critical Care Time: 80 Attestation: The high probability of a clinically significant, sudden or life threatening deterioration of the patient's respiratory system(s) required my full and direct attention, intervention and personal management. The critical care time is as s hown. This time is in addition to time spent performing any reported procedures but includes the following: [x] Data and vital sign review and interpretation [x] Patient assessment, examination and intervention [x] Documentation [x] Medication orders and management Discharge Plan Discharge Patient Disposition: Admitted As Inpatient Admit Provider: Shree Milian Clinical Impression: Acute on chronic respiratory failure with hypoxia and hypercapnia, Acute exacerbation of chronic obstructive airways disease, Right lower lobe pneumonia Condition: Stable Coding Level of Care Code ED Linux Systems Administrator for Chg Fwd Exam Detailed
[2022-02-04 06:34] LABS: ABG PH Result 7.27 (7.35-7.45); Arterial Blood Gas Hematocrit 35.2 % (37-47); Base Excess ABG 5.9 mmol/L (-2.0-2.0); Blood Gas Allen Test Pos; Blood Gas Operator Identificat WALCI; Blood Gas Sample Site Radial, right; Blood Gas Sample Type Arterial; HCO3 ABG 34.9 mmol/L (22-26); Oxygen Device VENT; PO2 ABG 46.2 mmHg (80.0-100.0)
[2022-02-04 06:35] LABS: ABG PCO2 75.9 mmHg (35-45)
[2022-02-04] MEDS: vancomycin 1,500 MG/300 ML PIGGYBACK 200 MG IV (06:36)
--- NOTE | 2022-02-04 06:45 | CT_ITS ---
WS: [id number] CTA CHEST WITH CT ABDOMEN AND PELVIS. HISTORY: Respiratory distress, elevated d-dimer. TECHNIQUE: CT angiogram is performed through the chest. Additional imaging is performed through the a bdomen and pelvis with IV contrast. Sagittal and coronal reformats have been submitted. MIP imaging also reviewed. All CT scans at [facility] use at least one of these dose optimization techniqu es: automated exposure control; mA and/or kV adjustment per patient size (includes targeted exams whe re dose is matched to clinical indication); or iterative reconstruction. Contrast: Omnipaque 350; 100 cc IV. DLP: 1074.97 mGy.cm COMPARISON: 05/01/2019, 11/21/2021 Chest CTA: Adequate opacification of the pulmonary arteries. No filling defects in the pulmonary radha yudith through the segmental branches. Distal to the segmental branches the opacification becomes limit ed. Marked enlargement of the pulmonary artery to 4.1 cm. Moderate atherosclerosis aorta. No dissecti on or aneurysm. Volume loss in the RIGHT thorax due to partial atelectasis of the RIGHT middle and RI GHT lower lobes. Subsolid opacification RIGHT upper lobe. There is very mild diffuse interstitial thi ckening which is probably edema. No effusions. Endotracheal tube is in good position. Nasogastric tub e is present. Indeterminate bilateral hilar lymphoid tissue. The largest LEFT no is on the RIGHT pablo uring 2.1 cm. Small paratracheal lymph nodes. Heart size is normal. Abdomen CT: Liver is very slightly enlarged. 12 mm cyst LEFT lobe of the liver. Normal gallbladder. S pleen with granulomata. Normal portal vein. Normal pancreas. Hyperplasia LEFT adrenal gland. Normal R IGHT adrenal gland. Atherosclerosis aorta. Mild narrowing of the proximal celiac axis. No aneurysm. N ormal enhancement of each kidney. No obstruction. No ascites or adenopathy. Remote bilateral rib frac tures. Multiple osteoporotic compression fractures throughout the thoracic spine including T3, T4, T6 , T7, T8 and T12. Stomach is not distended. Nasogastric tube is present in the stomach. No small bowel obstruction. Mil d diffuse fecal retention and constipation. The appendix is not identified. Pelvic CT: No free fluid or adenopathy in the pelvis. Castillo catheter present in the bladder. RIGHT ov kale cyst measures 2.5 x 1.7 cm. Mild anterior wedging of T12, L1 and L2. The L1 and L2 compression fractures are new since 11/21/2021. CT/CT angio chest w abd pel w con IMPRESSION: 1. No central pulmonary embolism. Beyond the segmental branches opacification is suboptimal. Cannot exclude distal pulmonary emboli. 2. Enlarged pulmonary artery. No RIGHT heart strain. 3. Partial atelectasis RIGHT middle and RIGHT lower lobes with volume loss in the RIGHT thorax. 4. Nasogastric and endotracheal tubes in good position. 5. No ascites. 6. Mildly prominent, indeterminate mediastinal and hilar lymph nodes. 7. Mild interstitial edema and focal pneumonitis central RIGHT upper lobe. 8. New since 11/21/2021 are minimal compression fractures and L1 and L2. 9. Remote rib fractures, bilateral. 10. New thoracic spine osteoporotic compression fractures since 10/01/2021 at T6 , T7 and T8.
--- NOTE | 2022-02-04 06:45 | PC.NURSE ---
Informed Dr. Hawkins of pt current gcs while under sedation medications. Per Dr Hawkins increase versed to 8mL/hr
--- NOTE | 2022-02-04 07:28 | ECG_ITS ---
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 Measurements Intervals [place] Rate: 90 P: 127 TN: 140 QRS: 133 QRSD: 102 T: 121 QT: 371 QTc: 454 Interpretive Statements SINUS RHYTHM ARM LEADS REVERSED [INVERTED P AND QRS IN I] Compared to ECG 12/01/2021 14:26:30 No significant changes Electronically Signed On 02-04-2022 21:31:50 CDT by Haydee Smith M.D. [email or web address]
[2022-02-04] MEDS: dexmedeTOMIDine 0.9 % NaCL 400 MCG/100 ML PREMIX IV (07:41)
--- NOTE | 2022-02-04 08:00 | P.HP_ITS ---
Providers/Chief Complaint Admitting Physician: Shree Milian MD Primary Care Provider: NAKITA Galdamez-Alejandro Chief Complaint: RESP DISRESS History of Present Illness Hilary Alegre is a 56 year old female presenting to the emergency department via EMS. They were dispatched for respiratory distress. On arrival patient was hypoxic, and lethargic. They placed a laryngeal airway, IO, and gave her ketamine as well as rocuronium. The IO apparently was not effective and an EJ was placed with repeat dosing. On arrival to the emergency department the laryngeal airway was removed and she was intubated. She did have spontaneous movements of all of her extremities. While in the emergency department of Versed, and fentanyl drip were initiated after propofol seemed to drop her blood pressure. Precedex was then initiated with hopes of decreasing Versed and fentanyl. She was given 1 L of fluids. Solu-Medrol was given along with vancomycin, and Zosyn. She received at least 1 nebulized treatment. From the daughter, relayed to the ER personnel she recently saw nurse reg townsend on January 30 and was found to have a possible new compression fracture of her back. Pain medicine may have been increased at that time. Review of Systems General: Reports: ROS unobtainable due to endotracheal tube Medications/Allergies Home Medications Medication Instructions Recorded Confirmed Last Taken Type gabapentin 400 mg capsule 400 mg PO BID #60 caps 11/04/21 01/30/22 11/19/21 Rx buspirone 10 mg tablet 10 mg PO BID #60 tabs 01/10/22 01/30/22 Unknown Rx cholecalciferol (vitamin D3) 125 5,000 unit PO DAILY #30 caps 01/10/22 01/30/22 Unknown Rx mcg (5,000 unit) capsule fluticasone fur. 100 mcg-umeclid 1 inh inhalation DAILY #60 ea 01/10/22 01/30/22 Unknown Rx 62.5 mcg-vilant 25 mcg inhalat.powder (Trelegy Ellipta) loratadine 10 mg tablet (Claritin) 10 mg PO DAILY #30 tabs 01/10/22 01/30/22 Unknown Rx metoprolol succinate 50 mg 50 mg PO DAILY #30 tabs 01/10/22 01/30/22 Unknown Rx tablet,extended release 24 hr (Toprol XL) montelukast 10 mg tablet 10 mg PO DAILY #30 tabs 01/10/22 01/30/22 Unknown Rx (Singulair) multivitamin with folic acid 400 1 tab PO DAILY #30 tabs 01/10/22 01/30/22 Unknown Rx mcg tablet (Tab-A-Beth) naproxen 500 mg tablet 500 mg PO BID PRN pain #60 tabs 01/10/22 01/30/22 Unknown Rx paroxetine HCl 10 mg tablet (Paxil) 10 mg PO DAILY #30 tabs 01/10/22 01/30/22 Unknown Rx fluticasone propionate 50 2 spray intranasal DAILY Nasal 01/30/22 01/30/22 Unknown Rx mcg/actuation nasal Congestion #16 grams spray,suspension folic acid 800 mcg tablet 800 mcg PO DAILY #30 tabs 01/30/22 01/30/22 Unknown Rx oxycodone 10 mg tablet 10 mg PO Q4H PRN Pain 01/30/22 01/30/22 Unknown History roflumilast 500 mcg tablet 500 mcg PO DAILY #30 tabs 01/30/22 01/30/22 Unknown Rx (Daliresp) syringe with needle, safety 3 mL #1 ea 01/30/22 01/30/22 Unknown Rx 25 gauge x 1 (Easy Touch SheathLock Syringe with Needle) tizanidine 2 mg tablet 2 mg PO BID muscle spasticity #60 01/30/22 01/30/22 Unknown Rx tabs ipratropium 0.5 mg-albuterol 3 mg 3 ml inhalation Q6H.RESPIRATORY 01/31/22 01/31/22 Unknown Rx (2.5 mg base)/3 mL nebulization #300 mL soln albuterol sulfate 90 mcg/actuation 2 puff inhalation Q4H PRN 02/04/22 02/04/22 Unknown History aerosol inhaler (Ventolin HFA) shortness of breath or wheezing cyanocobalamin (vitamin B-12) 1,000 mcg IM Q30D 02/04/22 02/04/22 Unknown History 1,000 mcg/mL injection solution hydroxyzine pamoate 25 mg capsule 25 mg PO BID 02/04/22 02/04/22 Unknown History Allergies Allergy/AdvReac Type Severity Reaction Status Date / Time cephalexin Allergy Intermediate ALGY-Hives Verified 02/03/22 10:45 pregabalin [From Lyrica] Allergy ALGY-Swell Verified 02/03/22 10:45 Lip/Tongue/Throat PFSH Acute PFSH: Medical History (Updated 02/04/22 @ 08:35 by Shree Milian MD) Acute exacerbation of chronic obstructive airways disease Allergic rhinitis due to pollen Anxiety Atherosclerosis Chronic pain Chronic respiratory failure with hypoxia and hypercapnia COPD (chronic obstructive pulmonary disease) Chronically on 4 L of oxygen History of mammogram 2018 Hypertension Neuropathy Nicotine addiction INOCENCIO (obstructive sleep apnea) Osteoarthritis Osteoporosis Pelvic fracture 2018 Personal history of nicotine dependence Rib fracture 2018 Sinusitis Spinal fracture Vitamin B12 deficiency Vitamin D deficiency Surgical History Clavicle fracture H/O adenoidectomy History of appendectomy 1985 History of right shoulder fracture April 2017 Hx of hysterectomy Hx of tonsillectomy Hx of tubal ligation Family History Mother Cancer COPD exacerbation Asthma Father Cancer Social History Smoking and tobacco status: current every day smoker cigarettes Packs smoked per day: 2 Years cigarettes smoked: 40 Second hand smoke exposure: Yes Smoking risk assessment/counseling performed?: Yes Alcohol intake: current Alcohol intake frequency: 0-2 Drinks per Day Desire information about alcohol rehabilitation?: No Counseling given: Yes Desire information about substance/drug rehabilitation?: No Counseling given: No Adopted: No Caregiver/support person: No Lives independently: Yes Household members: none Housing: House Marital status: Legally Number of children: 2 service: No Current occupational status: unemployed and disabled History of recent travel: No Current gender identity: Female Vitals/I&O/Wt Last Vital Signs Temp 97.7 F 02/04/22 05:24 Pulse 93 02/04/22 06:52 Resp 18 02/04/22 07:06 BP 114/75 02/04/22 06:52 Pulse Ox 91 02/04/22 06:52 O2 Del Method 02/04/22 06:52 FiO2 75 02/04/22 07:06 02/03/22 02/04/22 02/04/22 22:59 06:59 14:59 Intake Total 1053.575 / 1053.575 18.317 / 18.317 Balance 1053.575 / 1053.575 18.317 / 18.317 Weight last 48 hrs Weight 70 kg Physical Exam Narrative: General exam is a sedated female, on the ventilator HEENT: Atraumatic and normocephalic pupils equally round oropharynx demonstrates endotracheal tube and orogastric tube Neck is supple no lymphadenopathy or thyromegaly. Central line, left subclavian Cardiovascular regular rate and rhythm, heart sounds distant, no murmur Lungs diminished breath sounds bilaterally. Faint expiratory wheeze. Abdomen is soft with positive bowel sounds. No obvious organomegaly exam demonstrates Castillo Extremities no cyanosis clubbing or edema, cap refill brisk Skin no rash Neuro no obvious focal deficits. Urinary Catheter Management: Castillo Latex: Cath Placed During This Visit: yes Urinary Catheter Date of Insertion: 02/04/22 Urinary Catheter Time of Insertion: 06:06 Data : 02/04/22 05:35 02/04/22 05:35 Other Labs: Dimer is elevated at 2.02, INR normal at 0.99 Most recent ABG demonstrates a pH of 7.27, PCO2 of 76, PO2 of 46. Ventilator adjustments made at that time included increasing FiO2 to 75%, PEEP to 12. Repeat ABG has been ordered Calcium 8.4 LFTs normal Troponin 11 BNP 317 Last chest x-ray demonstrates appropriate placement of the left subclavian 9, endotracheal tube and orogastric tube appear appropriately positioned. Right lower lobe pneumonia noted question small effusion on the right. Rapid COVID-negative, PCR pending Blood cultures were drawn EKG demonstrates sinus rhythm, question of arm lead reversal. We will repeat. Micro: Microbiology 02/04/22 05:43 Blood Culture - Preliminary Blood SPECIMEN COLLECTED 02/04/22 05:40 Blood Culture - Preliminary Blood SPECIMEN COLLECTED A&P Assessment and plan (1) Acute on chronic respiratory failure with hypoxia and hypercapnia: Patient presents with acute respiratory failure, found hypoxic in the field and with significant hypercarbia. Etiology is unknown at this time. This could be secondary to right lower lobe pneumonia, aspiration pneumonitis, or COPD exacerbation. However, narcotic use could potentiate this as well. She has been placed on the ventilator. Adjust settings as appropriate. Repeat ABG. Reduce PEEP if possible. Fentanyl, Versed, Precedex for sedation currently. Monitor for appropriate neurologic response when sedation can be weaned secondary to hypoxemia noted on arrival of EMS. (2) Right lower lobe pneumonia: Appears to have right lower lobe pneumonia CTA being performed Placed on Levaquin, Flagyl, vancomycin. Note that she is cephalosporin allergic, therefore likely penicillin allergic with reaction being listed as hives. Blood cultures, sputum cultures, MRSA PCR As white blood cell count is elevated we will also check UA with micro. Castillo has already been placed. (3) Acute exacerbation of COPD with asthma: DuoNeb every 4 hours Budesonide twice daily IV steroids. She was given 125 mg of Solu-Medrol IV in the emergency department. Continue 60 mg of Solu-Medrol every 8 hours Has history of COPD, chronically on 4 L of oxygen, with last FEV1 of 0.95, 39%, in 2016. She has continued to smoke heavily since that time and I expect it to have declined significantly. (4) Acute metabolic encephalopathy: Secondary to hypoxia, hypercarbia with respiratory failure Monitor for improvement If no improvement consider CT head (5) Chronic pain: Patient with history of chronic pain, on chronic narcotics and muscle relaxants Currently on a fentanyl drip which should suffice. Will continue her muscle relaxant low-dose twice daily to prevent withdrawal (6) Elevated d-dimer: CTA being checked currently. Await results (7) Hyperglycemia: Check hemoglobin A1c (8) Hypertension: Hold beta-ginny currently. Blood pressure is low with current medicines used to sedate for mechanical ventilation. Reinitiate when appropriate. Plan Multiple other medical problems as listed in past medical history Full code currently Lovenox for DVT prophylaxis Attestations Medical Necessity Statement*: Will require greater than 2 midnight stay for evaluation and treatment of respiratory failure requiring mechanical ventilation associated with pneumonia. Critical Care Time: The high probability of a clinically significant, sudden or life threatening deterioration of the patient's [pulmonary, cardiac, infectious disease] system(s) required my full and direct attention, intervention and personal management. The critical care time is as shown. This time is in addition to time spent performing any reported procedures but includes the following: [x] Data and vital sign review and interpretation [x] Patient assessment, examination and intervention [x] Documentation [x] Medication orders and management Critical Care Time (min): 62 Coding Level of Care Code Acute Engraver Hand [employer] for Kaylah Bach Diagnoses Acute on chronic respiratory failure with hypoxia and hypercapnia J96.21; J96.22 Right lower lobe pneumonia J18.9 Acute exacerbation of COPD with asthma J44.1; J45.901 Acute metabolic encephalopathy G93.41 Chronic pain G89.29 Elevated d-dimer R79.89 Hyperglycemia R73.9 Hypertension I10
--- NOTE | 2022-02-04 08:03 | PC.PHAR ---
pt unable to verify medications due to being intubated-called pts christopher foreman [phone] no answer
[2022-02-04 08:06] LABS: Troponin 5 2HR 9.26 ng/L (0-10)
[2022-02-04 08:18] LABS: Troponin 5 2HR Delta -1.74 ABS# (0-10)
[2022-02-04] MEDS: iohexol 350 mg/mL 100 mL Btl IV (08:26)
[2022-02-04 08:38] LABS: Estmated Average Glucose 100; Hemoglobin A1C 5.1 % (4.0-6.0)
[2022-02-04 08:55] LABS: Glucose Urine UA Norm (Normal); Protein Urine Trace (Negative); Specific Gravity, Urine 1.015 (1.005-1.030); Urine Appearance SL Hazy (CLEAR); Urine Color Yellow (Yellow); pH Urine 6.5 (5-7)
[2022-02-04 08:56] LABS: Add Urine Culture? No; Amorphous Sediment Urine 2+ /hpf; Bacteria Urine 1+ /hpf; Bilirubin Urine Neg (Negative); Blood Urine Neg (Negative); Coarse Granular Casts Urine 0-4 /lpf; Ketones Urine Negative (Negative); Leukocyte Esterase Urine Negative (Negative); Nitrate Urine Negative (Negative); Squamous Epithelial Cell Urine 0-4 /hpf (0-5); Urobilinogen Urine Norm (Negative); WBC Urine 0-4 /hpf (0-5)
[2022-02-04 09:00] LABS: ABG PH Result 7.33 (7.35-7.45); Arterial Blood Gas Hematocrit 33.9 % (37-47); Base Excess ABG 6.3 mmol/L (-2.0-2.0); Blood Gas Allen Test Pos; Blood Gas Operator Identificat CAK; Blood Gas Sample Site Radial, left; Blood Gas Sample Type Arterial; HCO3 ABG 33.9 mmol/L (22-26); Oxygen Device VENT; PO2 ABG 57.3 mmHg (80.0-100.0)
[2022-02-04 09:01] LABS: ABG PCO2 64.4 mmHg (35-45)
[2022-02-04] MEDS: budesonide 0.5 mg/2 mL Neb INHALATION (09:52)
[2022-02-04] MEDS: gabapentin 400 mg Capsule PO ×2 (10:25→17:19)
[2022-02-04] MEDS: BuSPIRONE 10 mg Tablet PO ×2 (10:25→17:20)
[2022-02-04] MEDS: enoxaparin 40 mg/0.4 mL Syringe SUBCUT (10:25)
[2022-02-04] MEDS: montelukast sodium 10 mg Tablet PO (10:25)
[2022-02-04] MEDS: loratadine 10 mg Tablet PO (10:25)
[2022-02-04] MEDS: PARoxetine 20 mg Tablet 10 MG PO (10:25)
[2022-02-04] MEDS: metroNIDAZOLE IV 500 MG/100 ML PREMIX 100 MG IV ×3 (10:26→21:56)
[2022-02-04] MEDS: levofloxacin-dextrose 5 % 750 MG/150 ML PREMIX 100 MG IV (10:26)
[2022-02-04 10:31] LABS: Adenovirus Not Detected (NOT DETECT); Chlamydia Pneumoniae Not Detected (NOT DETECT); Coronavirus 229E,HKU1,NL63,OC4 Not Detected (NOT DETECT); Human Metapneumovirus Not Detected (NOT DETECT); Human Rhinovirus/Enterovirus Not Detected (NOT DETECT); Influenza A Not Detected (NOT DETECT); Influenza A H1 Not Detected (NOT DETECT); Influenza A H1-2009 Not Detected (NOT DETECT); Influenza A H3 Not Detected (NOT DETECT); Influenza B Not Detected (NOT DETECT); Mycoplasma Pneumoniae Not Detected (NOT DETECT); Parainfluenza Virus Type 1 Not Detected (NOT DETECT); Parainfluenza Virus Type 2 Not Detected (NOT DETECT); Parainfluenza Virus Type 3 Not Detected (NOT DETECT); Parainfluenza Virus Type 4 Not Detected (NOT DETECT); Respiratory Syncytial Virus A Not Detected (NOT DETECT); Respiratory Syncytial Virus B Not Detected (NOT DETECT); SARS-COV-2 Not Detected (NOT DETECT)
[2022-02-04] MEDS: famotidine 20 mg/2 mL INJ IVP ×2 (10:32→21:46)
--- NOTE | 2022-02-04 10:58 | ECG_ITS ---
[facility] Test Date: 2022-02-04 Pat Name: Hilary Alegre Department: Room: ICU10 Gender: Female Beater Out: : 1965 Requested By: Leonard Almaguer Order Number: [id number] Aidan MD: Haydee Smith M.D. Measurements Intervals Denio Rate: 93 P: 54 ME: 149 QRS: 59 QRSD: 105 T: 65 QT: 369 QTc: 459 Interpretive Statements SINUS RHYTHM Compared to ECG 02/04/2022 07:54:08 No significant changes Electronically Signed On 02-04-2022 21:32:25 CDT by Haydee Smith M.D. [id number]
--- NOTE | 2022-02-04 12:00 | PC.NURSE ---
Pt was admitted to ICU sedated and on ventilator. Castillo and central line in place. All belongings are at bedside including a purple jacket and top dentures. Family has been updated.
--- NOTE | 2022-02-04 12:55 | PC.CHAP ---
Pastoral Care Encounter/Spiritual Assessment Type of Contact [] Declined processing talc and borate supervisor visit [] Patient/Family/Request visit [] Outpatient visit [] Follow-up visit [] Physician referral [] Code/Alert [x] Routine visit [] Staff referral [] Actively dying [] Patient sleeping [] Family support [] [] Out of room [] Palliative care [] [] Receiving care in room [] Pre-surgical visit [] Trauma [] Long length of stay [x] ICU visit [] Other: Relational/Emotional Strength [] Patient feels connected with others/family/visitors/staff [] Distress [] Loneliness/isolation [] Abandonment Spirituality of Patient [] Person of Any [] Attends Mosque of their Any [] Believes in Prayer [] Reads Bible or Voodoo materials [] There are Spiritual issues to be addressed Edge Burnisher Uppers Interventions [x] Prayer [] Active listening [] Non-anxious presence [] Spiritual/emotional support [] Crisis/trauma care [] Spiritual counseling [] Bereavement support [] Provided bereavement packet [] Provided Bible/devotional materials [] Provided toy/stuffed animal, coloring book to patient or family member [] Provided Communion [] Anointing/[place] [] Salvation [x] Completed spiritual assessment [] Other: Impact on Illness or Injury [] Angry [] Fearful [] Anxious [] Often cries [] Exhaustion [] Unable to work [] Unable to attend faith [] Unable to walk/stand [] Unable to read [] Unable to drive [] Unable to eat/drink [] Unable to sleep [] Unable to be with family [] Patient intubated [] Other: Summary Time spent with patient
[2022-02-04] MEDS: roflumilast 500 mcg Tablet PO (14:33)
[2022-02-04] MEDS: vancomycin 1,000 MG in sodium chloride 0.9% 250 ML 250 MG IV ×2 (14:33→21:47)
--- NOTE | 2022-02-04 21:18 | PC.NURSE ---
Pt's abdomen large and very firm. It appears to be tender. OG connected to LIS. Immediate drainage of 200 mls of green drainage noted. Abdomen is now soft. Dr. Badillo notified.
--- NOTE | 2022-02-04 22:34 | PC.NURSE ---
Pt's hands elevated on pillows to reduce swelling. Pt has several rings that look very tight.
[2022-02-04] MEDS: dexmedeTOMIDine 0.9 % NaCL 400 MCG/100 ML PREMIX 8.75 MCG IV (23:13)
--- NOTE | 2022-02-04 23:24 | PC.NURSE ---
Large SCDs had to be used. No medium sleeves in house.
[2022-02-04] MEDS: lanolin oint 7 gm 1 APPLIC TOPICAL (23:39)
[2022-02-05] VITALS (74 sets, daily range): BP systolic 96–140; BP diastolic 58–89; PULSE 71–89; RESP 14–22; TEMP -7.7–37.7; O2SAT 90–96
[2022-02-05] MEDS: chlorhexidine gluconate 4% Btl 118 mL 1 APPLIC TOPICAL (01:11)
[2022-02-05] MEDS: ipratropium-albuterol 3 mL Neb INHALATION ×6 (03:18→23:34)
[2022-02-05 03:34] LABS: ABG PCO2 51.7 mmHg (35-45); ABG PH Result 7.42 (7.35-7.45); Arterial Blood Gas Hematocrit 33.3 % (37-47); Base Excess ABG 7.8 mmol/L (-2.0-2.0); Blood Gas Allen Test Pos; Blood Gas Sample Site Radial, right; Blood Gas Sample Type Arterial; HCO3 ABG 33.6 mmol/L (22-26); Oxygen Device VENT; PO2 ABG 51.5 mmHg (80.0-100.0)
[2022-02-05 04:17] LABS: Basophils % 0.2 %; Hematocrit 35.1 % (37.0-47.0); Hemoglobin 10.8 g/dL (11.5-15.3); Lymphocytes # 1.6 10^3/uL (0.8-4.8); Lymphocytes % 7.3 %; Mean Corpuscular HGB Conc 30.8 g/dL (30.0-36.0); Mean Corpuscular Hemoglobin 30.2 pg (28.0-34.0); Mean Platelet Volume 10.6 fL (7.4-10.4); Monocytes % 4.5 %; Neutrophils # 19.24 10^3/uL (1.8-7.7); Neutrophils % 87.5 %; Nucleated Red Blood Cells % 0 %; Platelet Count 309 10^3/cmm (130-400); Red Blood Count 3.58 10^6/uL (4.1-5.3)
[2022-02-05 04:40] LABS: Alanine Aminotransferase 8 U/L (0-33); Albumin Level 3.4 g/dL (3.5-5.2); Alkaline Phosphatase 74 U/L (35-105); Anion Gap 12.7 (5-19); Aspartate Amino Transferase 12 U/L (0-32); Blood Urea Nitrogen 20 mg/dL (6-20); Calcium 8.9 mg/dL (8.5-10.5); Carbon Dioxide 31 mmol/L (22-29); Chloride 99 mmol/L (98-107); Globulin 2.8 g/dL (1.3-4.6); Glomerular Filtration Rate 165.7 mL/min (90-130); Glucose 194 mg/dL (65-115); Magnesium 1.8 mg/dL (1.7-2.3); Osmolality Calculated 296 mOsm/kg (285-295); Potassium 3.7 mmol/L (3.5-5.1); Sodium 139 mmol/L (136-145); Total Bilirubin 0.2 mg/dL (0.15-1.2); Total Protein 6.2 g/dL (6.6-8.7)
[2022-02-05] MEDS: metroNIDAZOLE IV 500 MG/100 ML PREMIX 100 MG IV ×4 (05:08→22:22)
[2022-02-05] MEDS: vancomycin 1,000 MG in sodium chloride 0.9% 250 ML 250 MG IV ×2 (06:36→20:40)
--- NOTE | 2022-02-05 07:00 | XRR_ITS ---
PROCEDURE INFORMATION: Exam: XR Chest Exam date and time: 02/05/2022 4:46 AM Age: 56 years old Clinical indication: Condition or disease; Lung condition and disease; Respiratory failure; Status not specified; Additional info: Resp failure TECHNIQUE: Imaging protocol: Radiologic exam of the chest. Views: 1 view. COMPARISON: CR (CHEST, ) 02/04/2022 6:21 AM FINDINGS: Tubes, catheters and devices: Endotracheal tube terminates approximately 3.1 cm above the philip. Left subclavian central venous catheter terminates in the region of the superior cavoatrial junction. NG tube passes into the stomach. Lungs: Mildly improved right basilar airspace disease. Pleural spaces: Slightly decreased size of a small right pleural effusion. No pneumothorax. Heart/Mediastinum: Unremarkable. No cardiomegaly. Bones/joints: Remote right clavicle fracture status post plate and screw fixation. Remote left-sided rib fractures. XR/XR chest 1V portable [id number] IMPRESSION: 1. Mildly improved right basilar airspace disease with slightly decreased size of a small right pleural effusion. 2. Stable positioning of support apparatus.
--- NOTE | 2022-02-05 07:20 | USCV_ITS ---
Hilary Alegre Age: 56 Gender: F : 1965 Exam Date: 02/05/2022 07:53 Ordering Phys: Shree Milian MD Technologist: RIN [place] [facility] [place]: ELEVATED BNP BP: 140 / 80 HR: 70 Rhythm: Sinus Technical Quality: Adequate MEASUREMENTS (Male / Female) Normal Values 2D ECHO LVOT Diameter 2.0 cm LV Ejection Fraction MOD 2C 62.3 % LV Ejection Fraction 2C AL 62.9 % LA Diameter 3.3 cm LA Width 3.3 cm LA Height 4.8 cm RA Width 3.4 cm RA Height 4.3 cm Aorta at Sinotubular Diameter 2.1 cm IVC Diameter 2.3 cm M-MODE Aortic Annulus Diameter 3.3 cm LA Ao Ratio MM 1.0 MV E Point Septal Separation 0.9 cm DOPPLER AV Peak Velocity 195.0 cm/s LVOT Peak Velocity 124.0 cm/s AV Area Cont Eq vti 2.0 cm squared AV Area Cont Eq pk 2.0 cm squared MV Peak Velocity 109.0 cm/s MV Area PHT 3.2 cm squared Mitral E to A Ratio 0.7 MV E' Velocity 43.5 cm/s Mitral E to MV E' Ratio 9.0 Mitral E to LV E' Lateral Ratio 7.6 Mitral E to LV E' Septal Ratio 11.2 TR Peak Velocity 213.9 cm/s TR Peak Gradient 18.3 mmHg TR Mean Velocity 235.0 cm/s TR Mean Gradient 22.4 mmHg TR Velocity Time Integral 87.1 cm TV Peak E Velocity 49.0 cm/s Right Atrial Pressure 15.0 mmHg Pulmonary Artery Systolic Pressu 33.3 mmHg PV Peak Velocity 156.0 cm/s FINDINGS Left Ventricle Normal left ventricular cavity size. Normal left ventricular systolic function. Left ventricular ejection fraction is estimated at 60 %. No diagnostic regional wall motion abnormalities. Normal diastolic function. Right Ventricle Upper normal right ventricular size and low normal systolic function. RVSP could not be calculated due to incomplete tricuspid regurgitation velocity profile. Right Atrium Normal right atrial size. Left Atrium Normal left atrial size. Mitral Valve Structurally normal mitral valve. No mitral valve stenosis. Trace mitral valve regurgitation. Aortic Valve Aortic valve not well visualized. No aortic valve stenosis. Trace to mild aortic valve regurgitation. Tricuspid Valve Structurally normal tricuspid valve. Trace tricuspid valve regurgitation. Pulmonic Valve Pulmonic valve not well visualized. No pulmonary valve stenosis. Pericardium No pericardial effusion. Aorta Normal size aortic root and proximal ascending aorta. IVC Dilated IVC with decreased respiratory variation. CONCLUSIONS 1. Normal left ventricular cavity size and systolic function. Left ventricular ejection fraction is estimated at 60 %. No diagnostic regional wall motion abnormalities. Normal diastolic function. 2. Upper normal right ventricular size and low normal systolic function. 3. Dilated IVC with decreased respiratory variation. 4. There may not have been any significant change when compared to study dated 05/17/2015. Laury De Paz MD (Electronically Signed) Final Date: 05 February 2022 15:00 S
--- NOTE | 2022-02-05 07:26 | P.PN_ITS ---
Subjective Subjective: Hilary is sedated on the ventilator. Nursing reports no events from last night. No issues with hypotension through the night. Oxygen saturations have stayed 94% or greater. Medications: Reviewed: Yes Vitals/I&O/Wt Last Vital Signs Temp 18 F L 02/05/22 06:00 Pulse 76 02/05/22 06:45 Resp 18 02/05/22 06:00 BP 125/70 02/05/22 06:45 Pulse Ox 94 02/05/22 06:45 O2 Del Method 02/05/22 06:45 FiO2 50 02/05/22 06:45 02/04/22 02/05/22 02/05/22 22:59 06:59 14:59 Intake Total 901.692 / 1221.409 500.296 / 1721.705 Output Total 750 / 750 250 / 1000 Balance 151.692 / 471.409 250.296 / 721.705 Weight last 48 hrs Weight 70.987 kg Weight 70 kg Physical Exam Narrative: General exam is a sedated female, on the ventilator Neurologic, with stimulation she grimaces HEENT pupils equally round Neck is supple no lymphadenopathy or thyromegaly. Central line, left subclavian Cardiovascular regular rate and rhythm, heart sounds distant, no murmur Lungs diminished breath sounds bilaterally. Few coarse breath sounds are noted on the right Abdomen is soft with positive bowel sounds. No obvious organomegaly exam demonstrates Castillo, small amount of urine in the bag Extremities no cyanosis clubbing or edema, cap refill brisk Skin no rash Neuro no obvious focal deficits. Urinary Catheter Management: Castillo Latex: Cath Placed During This Visit: yes Reason for Continuing Indwelling Catheter: Accurate Measurement of Urinary Output in Critically Ill Patients Urinary Catheter Date of Insertion: 02/04/22 Urinary Catheter Time of Insertion: 06:06 Data : 02/05/22 04:00 02/05/22 04:00 Other Labs: Chest x-ray reviewed by me demonstrates to position okay, right lung atelectasis improved. Micro: Microbiology 02/04/22 05:43 Blood Culture - Preliminary Blood NEGATIVE TO DATE 02/04/22 05:40 Blood Culture - Preliminary Blood NEGATIVE TO DATE A&P Assessment and plan (1) Acute on chronic respiratory failure with hypoxia and hypercapnia: Patient presents with acute respiratory failure, found hypoxic in the field and with significant hypercarbia. Etiology is unknown at this time. This could be secondary to right lower lobe pneumonia, aspiration pneumonitis, or COPD exacerbation. However, narcotic use could potentiate this as well. She has been placed on the ventilator. PO2 is low this morning. FiO2 will need to be increased, PEEP may need to be increased as blood pressure is improved. Will discuss with respiratory. Fentanyl, Versed, Precedex for sedation currently. She appears comfortable currently Monitor for appropriate neurologic response when sedation can be weaned secondary to hypoxemia noted on arrival of EMS. Lasix 40 mg IV x1, ins and outs are not matched. Renal function appears normal. As BNP elevated on admission, will check formal echocardiogram (2) Right lower lobe pneumonia: Appears to have right lower lobe pneumonia CTA demonstrated no evidence of pulmonary embolism Atelectasis improved on x-ray today Placed on Levaquin, Flagyl, vancomycin. Note that she is cephalosporin all ergic, therefore likely penicillin allergic with reaction being listed as hives. Blood cultures, sputum cultures, MRSA PCR pending White blood cell count is slightly more elevated, expected with steroids (3) Acute exacerbation of COPD with asthma: DuoNeb every 4 hours Budesonide twice daily Reduce IV steroids to 60 every 12 hours Has history of COPD, chronically on 4 L of oxygen, with last FEV1 of 0.95, 39%, in 2016. She has continued to smoke heavily since that time and I expect it to have declined significantly. (4) Acute metabolic encephalopathy: Secondary to hypoxia, hypercarbia with respiratory failure Monitor for improvement If no improvement consider CT head (5) Chronic pain: Patient with history of chronic pain, on chronic narcotics and muscle relaxants Currently on a fentanyl drip which should suffice. Family alerts me that her muscle relaxant has not been taken in the last month. This was discontinued (6) Elevated d-dimer: CTA demonstrated no pulmonary embolism (7) Hyperglycemia: Hemoglobin A1c was normal (8) Hypertension: Holding beta-ginny currently Plan Multiple other medical problems as listed in past medical history Full code currently Lovenox for DVT prophylaxis Attestations Medical Necessity Statement*: Needs continued hospitalization for respiratory failure requiring mechanical ventilation Critical Care Time: The high probability of a clinically significant, sudden or life threatening deterioration of the patient's [pulmonary, cardiac, infectious disease] system(s) required my full and direct attention, intervention and personal management. The critical care time is as shown. This time is in addition to time spent performing any reported procedures but includes the following: [x] Data and vital sign review and interpretation [x] Patient assessment, examination and intervention [x] Documentation [x] Medication orders and management Critical Care Time (min): 32 Coding Level of Care Code Acute Shaping Machine Operator for Chg Fwd Diagnoses Acute on chronic respiratory failure with hypoxia and hypercapnia J96.21; J96.22 Right lower lobe pneumonia J18.9 Acute exacerbation of COPD with asthma J44.1; J45.901 Acute metabolic encephalopathy G93.41 Chronic pain G89.29 Elevated d-dimer R79.89 Hyperglycemia R73.9 Hypertension I10
[2022-02-05] MEDS: budesonide 0.5 mg/2 mL Neb INHALATION ×2 (08:09→20:34)
[2022-02-05] MEDS: FUROsemide 10 mg/mL SDV 4mL 40 MG IVP (08:10)
[2022-02-05] MEDS: roflumilast 500 mcg Tablet PO (09:19)
[2022-02-05] MEDS: famotidine 20 mg/2 mL INJ IVP ×2 (09:19→22:22)
[2022-02-05] MEDS: PARoxetine 20 mg Tablet 10 MG PO (09:19)
[2022-02-05] MEDS: levofloxacin-dextrose 5 % 750 MG/150 ML PREMIX 100 MG IV (09:19)
[2022-02-05] MEDS: loratadine 10 mg Tablet PO (09:19)
[2022-02-05] MEDS: montelukast sodium 10 mg Tablet PO (09:19)
[2022-02-05] MEDS: gabapentin 400 mg Capsule PO ×2 (09:19→18:21)
[2022-02-05] MEDS: BuSPIRONE 10 mg Tablet PO ×2 (09:19→18:21)
[2022-02-05] MEDS: dexmedeTOMIDine 0.9 % NaCL 400 MCG/100 ML PREMIX 8.75 MCG IV ×2 (09:35→18:21)
[2022-02-05] MEDS: enoxaparin 40 mg/0.4 mL Syringe SUBCUT (09:36)
[2022-02-05 14:00] LABS: Vancomycin Trough 21.2 ug/mL (10-15)
[2022-02-06] VITALS (63 sets, daily range): BP systolic 93–140; BP diastolic 49–82; PULSE 62–88; RESP 14–16; TEMP 36.6–37.2; O2SAT 90–96
[2022-02-06] MEDS: ipratropium-albuterol 3 mL Neb INHALATION ×6 (03:44→23:40)
[2022-02-06] MEDS: metroNIDAZOLE IV 500 MG/100 ML PREMIX 100 MG IV ×2 (03:54→09:13)
[2022-02-06 05:26] LABS: Basophils % 0.2 %; Hematocrit 33.4 % (37.0-47.0); Hemoglobin 10.4 g/dL (11.5-15.3); Lymphocytes # 2.3 10^3/uL (0.8-4.8); Lymphocytes % 9.6 %; Mean Corpuscular HGB Conc 31.1 g/dL (30.0-36.0); Mean Corpuscular Hemoglobin 30.1 pg (28.0-34.0); Mean Corpuscular Volume 96.8 fl (81-99); Mean Platelet Volume 11.2 fL (7.4-10.4); Monocytes % 8.2 %; Neutrophils # 19.66 10^3/uL (1.8-7.7); Neutrophils % 81.2 %; Nucleated Red Blood Cells % 0 %; Platelet Count 342 10^3/cmm (130-400); Red Blood Count 3.45 10^6/uL (4.1-5.3); Red Cell Distribution Width 14.7 % (12.1-15.1); White Blood Count 24.2 10^3/uL (4.0-10.0)
[2022-02-06 05:52] LABS: Alanine Aminotransferase 7 U/L (0-33); Albumin Level 3.3 g/dL (3.5-5.2); Alkaline Phosphatase 67 U/L (35-105); Anion Gap 11.7 (5-19); Aspartate Amino Transferase 10 U/L (0-32); Blood Urea Nitrogen 21 mg/dL (6-20); Carbon Dioxide 32 mmol/L (22-29); Chloride 100 mmol/L (98-107); Globulin 2.8 g/dL (1.3-4.6); Glomerular Filtration Rate 165.7 mL/min (90-130); Glucose 124 mg/dL (65-115); Magnesium 1.9 mg/dL (1.7-2.3); Osmolality Calculated 294 mOsm/kg (285-295); Potassium 3.7 mmol/L (3.5-5.1); Sodium 140 mmol/L (136-145); Total Bilirubin 0.2 mg/dL (0.15-1.2); Total Protein 6.1 g/dL (6.6-8.7)
[2022-02-06 05:55] LABS: ABG PCO2 55.2 mmHg (35-45); ABG PH Result 7.39 (7.35-7.45); Arterial Blood Gas Hematocrit 43.8 % (37-47); Base Excess ABG 6.3 mmol/L (-2.0-2.0); Blood Gas Allen Test Pos; Blood Gas Operator Identificat JB; Blood Gas Sample Site Radial, right; Blood Gas Sample Type Arterial; HCO3 ABG 33.1 mmol/L (22-26); Oxygen Device VENT; PO2 ABG 92.7 mmHg (80.0-100.0)
--- NOTE | 2022-02-06 07:00 | XRR_ITS ---
PROCEDURE INFORMATION: Exam: XR Chest Exam date and time: 02/06/2022 4:05 AM Age: 56 years old Clinical indication: Condition or disease; Lung condition and disease; Respiratory failure; Patient HX: --f/u resp failure. Intubated. TECHNIQUE: Imaging protocol: Radiologic exam of the chest. Views: 1 view. COMPARISON: CR XR chest 1V portable [id number] 02/05/2022 4:46 AM FINDINGS: Tubes, catheters and devices: Endotracheal tube, feeding tube, and central venous catheter again demonstrated. The endotracheal tube terminates 5.4 cm above the philip. Lungs: Emphysematous change, interstitial prominence, and asymmetric basilar airspace disease. Pleural spaces: Right pleural effusion obscuring the right hemidiaphragm. Questionable small left pleural effusion. Heart/Mediastinum: No cardiomegaly. Bones/joints: Osteopenia and degenerative change. Old rib fractures. Surgical fixation of right clavicular fracture. XR/XR chest 1V portable [id number] IMPRESSION: 1. Emphysematous change, interstitial prominence, and asymmetric basilar airspace disease. 2. Right pleural effusion obscuring the right hemidiaphragm.
[2022-02-06] MEDS: FUROsemide 10 mg/mL SDV 4mL 40 MG IVP (07:34)
[2022-02-06] MEDS: vancomycin 1,000 MG in sodium chloride 0.9% 250 ML 250 MG IV ×2 (07:35→21:08)
[2022-02-06] MEDS: dexmedeTOMIDine 0.9 % NaCL 400 MCG/100 ML PREMIX 8.75 MCG IV (07:35)
[2022-02-06] MEDS: budesonide 0.5 mg/2 mL Neb INHALATION ×2 (08:10→20:49)
[2022-02-06] MEDS: roflumilast 500 mcg Tablet PO (09:12)
[2022-02-06] MEDS: enoxaparin 40 mg/0.4 mL Syringe SUBCUT (09:12)
[2022-02-06] MEDS: montelukast sodium 10 mg Tablet PO (09:12)
[2022-02-06] MEDS: PARoxetine 20 mg Tablet 10 MG PO (09:12)
[2022-02-06] MEDS: BuSPIRONE 10 mg Tablet PO ×2 (09:12→17:10)
[2022-02-06] MEDS: loratadine 10 mg Tablet PO (09:12)
[2022-02-06] MEDS: gabapentin 400 mg Capsule PO ×2 (09:12→17:10)
[2022-02-06] MEDS: famotidine 20 mg/2 mL INJ IVP ×2 (09:13→21:07)
[2022-02-06] MEDS: levofloxacin-dextrose 5 % 750 MG/150 ML PREMIX 100 MG IV (09:13)
--- NOTE | 2022-02-06 09:40 | PM.PN ---
Subjective Subjective: Hilary will awaken on the ventilator, and nod to a few questions. She does not seem to be in any discomfort. Medications: Reviewed: Yes Vitals/I&O/Wt Last Vital Signs Temp 97.8 F 02/06/22 07:00 Pulse 72 02/06/22 08:30 Resp 16 02/06/22 09:37 BP 133/77 02/06/22 08:30 Pulse Ox 91 02/06/22 09:37 O2 Del Method 02/06/22 07:55 FiO2 50 02/06/22 09:37 02/05/22 02/06/22 02/06/22 22:59 06:59 14:59 Intake Total 442.750 / 1253.458 603.125 / 1856.583 Output Total 100 / 1100 275 / 1375 Balance 342.750 / 153.458 328.125 / 481.583 Weight last 48 hrs Weight 70.506 kg Weight 70.987 kg Physical Exam Narrative: General exam is a sedated female, on the ventilator. 140 positive over the last 24 hours Neurologic, can follow directions HEENT pupils equally round. Endotracheal tube in Yesika gastric tube noted Neck is supple no lymphadenopathy or thyromegaly. Central line, left subclavian Cardiovascular regular rate and rhythm, heart sounds distant, no murmur Lungs diminished breath sounds bilaterally. Few faint wheezes. Ventilator currently with a PEEP of 5, tidal volume 400, FiO2 of 40% Abdomen is soft with positive bowel sounds. No obvious organomegaly exam demonstrates Castillo, small amount of urine in the bag Extremities no cyanosis clubbing or edema, cap refill brisk Skin no rash Neuro no obvious focal deficits. Urinary Catheter Management: Castillo Latex: Cath Placed During This Visit: yes Reason for Continuing Indwelling Catheter: Accurate Measurement of Urinary Output in Critically Ill Patients Urinary Catheter Date of Insertion: 02/04/22 Urinary Catheter Time of Insertion: 06:06 Data : 02/06/22 04:33 02/06/22 04:33 Other Labs: ABG this morning 7.39, 55, 92 on 50% FiO2 Chest x-ray tubes okay, still with some right lower lobe atelectasis. Sputum now growing gram-negative rods MRSA PCR positive Blood culture negative to date Echo shows preserved EF Micro: Microbiology 02/05/22 13:20 MRSA Culture - Final Nose 02/04/22 07:00 Gram Stain - Final Sputum - Endotracheal Tube Aspirate Sputum Culture - Preliminary Gram Negative Rods 02/04/22 05:43 Blood Culture - Preliminary Blood NEGATIVE TO DATE 02/04/22 05:40 Blood Culture - Preliminary Blood NEGATIVE TO DATE A&P Assessment and plan (1) Acute on chronic respiratory failure with hypoxia and hypercapnia: Patient presents with acute respiratory failure, found hypoxic in the field and with significant hypercarbia. Etiology is unknown at this time. This could be secondary to right lower lobe pneumonia, aspiration pneumonitis, or COPD exacerbation. However, narcotic use could potentiate this as well. She has been placed on the ventilator. PO2 is low this morning. FiO2 will need to be increased, PEEP may need to be increased as blood pressure is improved. Will discuss with respiratory. Fentanyl, Versed, Precedex for sedation currently. She appears comfortable currently Monitor for appropriate neurologic response when sedation can be weaned secondary to hypoxemia noted on arrival of EMS. Continue to try to balance ins and outs. 40 mg of Lasix IV today. Echocardiogram was checked and EF preserved. IVC dilated but I suspect she has higher pressures on the right side from her chronic lung disease. (2) Right lower lobe pneumonia: Appears to have right lower lobe pneumonia, along with atelectasis in the right middle lobe and right lower lobe CTA demonstrated no evidence of pulmonary embolism Placed on Levaquin, Flagyl, vancomycin initially. Note that she is cephalosporin allergic, therefore likely penicillin allergic with reaction being listed as hives. Today sputum is growing gram-negative rods. MRSA PCR is positive. Continue vancomycin. Discontinue Flagyl. Add Primaxin until sputum culture has returned White blood cell count increased slightly. Some affect may be secondary to steroid (3) Acute exacerbation of COPD with asthma: DuoNeb every 4 hours Budesonide twice daily Reduce steroids to 60 mg every 24 hours Has history of COPD, chronically on 4 L of oxygen, with last FEV1 of 0.95, 39%, in 2016. She has continued to smoke heavily since that time and I expect it to have declined significantly. (4) Acute metabolic encephalopathy: Secondary to hypoxia, hypercarbia with respiratory failure This has improved. No need for CT head. (5) Chronic pain: Patient with history of chronic pain, on chronic narcotics and muscle relaxants Currently on a fentanyl drip which should suffice. Family alerts me that her muscle relaxant has not been taken in the last month. This was discontinued (6) Elevated d-dimer: CTA demonstrated no pulmonary embolism (7) Hyperglycemia: Hemoglobin A1c was normal (8) Hypertension: Holding beta-ginny currently secondary to hypotension on admission. Reinitiate if needed Plan Multiple other medical problems as listed in past medical history Full code currently Lovenox for DVT prophylaxis Pepcid for GI prophylaxis Attestations Medical Necessity Statement*: Needs continued hospital stay for IV antibiotics secondary to pneumonia and respiratory failure requiring mechanical ventilation. Coding Level of Care Code Acute Traffic Assistant for g Fwd Diagnoses Acute on chronic respiratory failure with hypoxia and hypercapnia J96.21; J96.22 Right lower lobe pneumonia J18.9 Acute exacerbation of COPD with asthma J44.1; J45.901 Acute metabolic encephalopathy G93.41 Chronic pain G89.29 Elevated d-dimer R79.89 Hyperglycemia R73.9 Hypertension I10
[2022-02-06] MEDS: dexmedeTOMIDine 0.9 % NaCL 400 MCG/100 ML PREMIX 12.25 MCG IV ×2 (15:24→23:16)
[2022-02-07] VITALS (62 sets, daily range): BP systolic 100–163; BP diastolic 55–95; PULSE 71–132; RESP 12–30; TEMP 36.8–37.6; O2SAT 90–99
[2022-02-07] MEDS: chlorhexidine gluconate 4% Btl 118 mL 1 APPLIC TOPICAL (02:04)
[2022-02-07] MEDS: ipratropium-albuterol 3 mL Neb INHALATION ×5 (03:21→21:28)
[2022-02-07 03:35] LABS: Basophils % 0.2 %; Eosinophils # 0.1 10^3/uL (0.0-0.8); Eosinophils % 0.3 %; Hematocrit 32.7 % (37.0-47.0); Hemoglobin 10.3 g/dL (11.5-15.3); Lymphocytes # 2.7 10^3/uL (0.8-4.8); Lymphocytes % 17.5 %; Mean Corpuscular HGB Conc 31.5 g/dL (30.0-36.0); Mean Corpuscular Hemoglobin 30.1 pg (28.0-34.0); Mean Corpuscular Volume 95.6 fl (81-99); Mean Platelet Volume 10.3 fL (7.4-10.4); Monocytes # 1.5 10^3/uL (0.2-0.9); Monocytes % 9.7 %; Neutrophils # 10.88 10^3/uL (1.8-7.7); Neutrophils % 71.4 %; Nucleated Red Blood Cells % 0 %; Platelet Count 308 10^3/cmm (130-400); Red Blood Count 3.42 10^6/uL (4.1-5.3); Red Cell Distribution Width 14.6 % (12.1-15.1); White Blood Count 15.2 10^3/uL (4.0-10.0)
[2022-02-07 04:06] LABS: Alanine Aminotransferase 6 U/L (0-33); Albumin Level 3.1 g/dL (3.5-5.2); Alkaline Phosphatase 62 U/L (35-105); Aspartate Amino Transferase 9 U/L (0-32); Blood Urea Nitrogen 15 mg/dL (6-20); Calcium 8.9 mg/dL (8.5-10.5); Carbon Dioxide 33 mmol/L (22-29); Chloride 100 mmol/L (98-107); Globulin 2.7 g/dL (1.3-4.6); Glomerular Filtration Rate 165.7 mL/min (90-130); Glucose 113 mg/dL (65-115); Magnesium 1.7 mg/dL (1.7-2.3); Osmolality Calculated 294 mOsm/kg (285-295); Sodium 141 mmol/L (136-145); Total Bilirubin 0.2 mg/dL (0.15-1.2); Total Protein 5.8 g/dL (6.6-8.7)
[2022-02-07 05:36] LABS: ABG PCO2 55.2 mmHg (35-45); ABG PH Result 7.39 (7.35-7.45); Arterial Blood Gas Hematocrit 32.5 % (37-47); Base Excess ABG 7.3 mmol/L (-2.0-2.0); Blood Gas Allen Test Pos; Blood Gas Operator Identificat JB; Blood Gas Sample Site Brachial, right; Blood Gas Sample Type Arterial; HCO3 ABG 33.5 mmol/L (22-26); Oxygen Device VENT; PO2 ABG 66.3 mmHg (80.0-100.0)
[2022-02-07] MEDS: dexmedeTOMIDine 0.9 % NaCL 400 MCG/100 ML PREMIX 12.25 MCG IV ×2 (06:46→20:00)
--- NOTE | 2022-02-07 07:00 | XRR_ITS ---
PROCEDURE INFORMATION: Exam: XR Chest Exam date and time: 02/07/2022 4:35 AM Age: 56 years old Clinical indication: Condition or disease; Lung condition and disease; Respiratory failure; Status not specified; Patient HX: F/u resp failure. Intubated. TECHNIQUE: Imaging protocol: Radiologic exam of the chest. Views: 1 view. COMPARISON: CR XR chest 1V portable [id number] 02/06/2022 4:05 AM FINDINGS: Tubes, catheters and devices: Endotracheal tube is in satisfactory position. Feeding tube is in satisfactory position. Left subclavian approach central line is in satisfactory position, with distal tip in the SVC, approximately 2 cm above the SVC/RA junction. Lungs: There is increase interstitial markings, in association with haziness of the lungs and small bilateral pleural effusions, which in the setting of cardiomegaly is consistent with pulmonary edema. Pneumonia should be excluded clinically. No pneumothorax. Pleural spaces: See Lungs finding. Heart/Mediastinum: Stable cardiomediastinal silhouette. Bones/joints: Degenerative changes of the spine seen. Right clavicle ORIF hardware seen. XR/XR chest 1V portable [id number] IMPRESSION: Imaging findings of pulmonary edema with small bilateral pleural effusions. Pneumonia should be excluded clinically.
[2022-02-07] MEDS: budesonide 0.5 mg/2 mL Neb INHALATION ×2 (07:29→21:28)
[2022-02-07] MEDS: vancomycin 1,000 MG in sodium chloride 0.9% 250 ML 250 MG IV (08:05)
[2022-02-07] MEDS: PARoxetine 20 mg Tablet 10 MG PO (09:11)
[2022-02-07] MEDS: montelukast sodium 10 mg Tablet PO (09:11)
[2022-02-07] MEDS: roflumilast 500 mcg Tablet PO (09:12)
[2022-02-07] MEDS: loratadine 10 mg Tablet PO (09:12)
[2022-02-07] MEDS: famotidine 20 mg/2 mL INJ IVP ×2 (09:12→21:53)
[2022-02-07] MEDS: BuSPIRONE 10 mg Tablet PO ×2 (09:12→17:47)
[2022-02-07] MEDS: enoxaparin 40 mg/0.4 mL Syringe SUBCUT (09:12)
[2022-02-07] MEDS: gabapentin 400 mg Capsule PO ×2 (09:12→17:47)
[2022-02-07] MEDS: lidocaine 1% 5 ML in potassium chloride premix 100 ML 25 ML IV ×2 (09:13→13:01)
--- NOTE | 2022-02-07 10:02 | PC.CHAP ---
Pastoral Care Encounter/Spiritual Assessment Type of Contact [] Declined housekeeping and laundry team leader visit [] Patient/Family/Request visit [] Outpatient visit [] Follow-up visit [] Physician referral [] Code/Alert [x] Routine visit [] Staff referral [] Actively dying [] Patient sleeping [] Family support [] [] Out of room [] Palliative care [] [] Receiving care in room [] Pre-surgical visit [] Trauma [] Long length of stay [x] ICU visit [] Other: Relational/Emotional Strength [] Patient feels connected with others/family/visitors/staff [] Distress [] Loneliness/isolation [] Abandonment Spirituality of Patient [] Person of Any [] Attends Restorationist of their Any [] Believes in Prayer [] Reads Bible or Pentecostalism materials [] There are Spiritual issues to be addressed [place] Interventions [x] Prayer [] Active listening [] Non-anxious presence [] Spiritual/emotional support [] Crisis/trauma care [] Spiritual counseling [] Bereavement support [] Provided bereavement packet [] Provided Bible/devotional materials [] Provided toy/stuffed animal, coloring book to patient or family member [] Provided Communion [] Anointing/[place] [] Salvation [x] Completed spiritual assessment [] Other: Impact on Illness or Injury [] Angry [] Fearful [] Anxious [] Often cries [] Exhaustion [] Unable to work [] Unable to attend amish [] Unable to walk/stand [] Unable to read [] Unable to drive [] Unable to eat/drink [] Unable to sleep [] Unable to be with family [] Patient intubated [] Other: Summary Time spent with patient
--- NOTE | 2022-02-07 10:24 | P.PN_ITS ---
Subjective Subjective: Hilary was intubated when I saw her earlier this morning, alert, in no distress. Medications: Reviewed: Yes Vitals/I&O/Wt Last Vital Signs Temp 98.3 F 02/07/22 04:00 Pulse 84 02/07/22 07:35 Resp 14 02/07/22 09:53 BP 114/62 02/07/22 06:00 Pulse Ox 93 02/07/22 09:53 O2 Del Method 02/07/22 07:15 FiO2 40 02/07/22 09:53 02/06/22 02/07/22 02/07/22 22:59 06:59 14:59 Intake Total 370.591 / 1070.883 638.242 / 1709.125 547.016 / 547.016 Output Total 1000 / 0 300 / 2350 Balance -629.409 / -979.117 338.242 / -640.875 547.016 / 547.016 Weight last 48 hrs Weight 71.985 kg Weight 70.506 kg Physical Exam Narrative: General exam awake on the ventilator, fluid negative over the last 24 hours. Neurologic, no deficits HEENT pupils equally round. Endotracheal tube in Yesika gastric tube noted Neck is supple no lymphadenopathy or thyromegaly. Central line, left subclavian Cardiovascular regular rate and rhythm, heart sounds distant, no murmur Lungs diminished breath sounds bilaterally. Few faint wheezes. Ventilator currently with a PEEP of 5, tidal volume 400, FiO2 of 40% Abdomen is soft with positive bowel sounds. No obvious organomegaly exam demonstrates Castillo, small amount of urine in the bag Extremities no cyanosis clubbing or edema, cap refill brisk Skin no rash Urinary Catheter Management: Castillo Latex: Cath Placed During This Visit: yes Reason for Continuing Indwelling Catheter: Accurate Measurement of Urinary Output in Critically Ill Patients Urinary Catheter Date of Insertion: 02/04/22 Urinary Catheter Time of Insertion: 06:06 Data : 02/07/22 03:25 02/07/22 03:25 Micro: Microbiology 02/04/22 07:00 Gram Stain - Final Sputum - Endotracheal Tube Aspirate Sputum Culture - Final Serratia marcescens 02/05/22 13:20 MRSA Culture - Final Nose A&P Assessment and plan (1) Acute on chronic respiratory failure with hypoxia and hypercapnia: Patient presents with acute respiratory failure, found hypoxic in the field and with significant hypercarbia. Etiology is unknown at this time. This could be secondary to right lower lobe pneumonia, aspiration pneumonitis, or COPD exacerbation. However, narcotic use could potentiate this as well. She has been placed on the ventilator. PO2 is low this morning. FiO2 will need to be increased, PEEP may need to be increased as blood pressure is improved. Will discuss with respiratory. Fentanyl, Versed, Precedex for sedation currently. She appears comfortable currently Monitor for appropriate neurologic response when sedation can be weaned secondary to hypoxemia noted on arrival of EMS. Overall negative the last 24 hours regarding fluid. Echocardiogram was checked and EF preserved. IVC dilated but I suspect she has higher pressures on the right side from her chronic lung disease. Extubate to BiPAP today. (2) Right lower lobe pneumonia: Appears to have right lower lobe pneumonia, along with atelectasis in the right middle lobe and right lower lobe CTA demonstrated no evidence of pulmonary embolism Placed on Levaquin, Flagyl, vancomycin initially. Note that she is cephalosporin allergic, therefore likely penicillin allergic with reaction being listed as hives. Today sputum is growing gram-negative rods. MRSA PCR is positive. Continue vancomycin. Continue Primaxin White blood cell count decreasing (3) Acute exacerbation of COPD with asthma: DuoNeb every 4 hours Budesonide twice daily Continue Solu-Medrol 60 mg every 24 hours. Reduce to prednisone 40 mg a day when able to take p.o. Has history of COPD, chronically on 4 L of oxygen, with last FEV1 of 0.95, 39%, in 2016. She has continued to smoke heavily since that time and I expect it to have declined significantly. (4) Acute metabolic encephalopathy: Secondary to hypoxia, hypercarbia with respiratory failure This has improved. No need for CT head. (5) Chronic pain: Patient with history of chronic pain, on chronic narcotics and muscle relaxants With extubation, changed to morphine IV as needed Family alerts me that her muscle relaxant has not been taken in the last month. This was discontinued (6) Elevated d-dimer: CTA demonstrated no pulmonary embolism (7) Hyperglycemia: Hemoglobin A1c was normal (8) Hypertension: Holding beta-ginny currently secondary to hypotension on admission. Reinitiate if needed Plan Multiple other medical problems as listed in past medical history Full code currently Lovenox for DVT prophylaxis Pepcid for GI prophylaxis Attestations Medical Necessity Statement*: Needs continued hospitalization for respiratory failure, possible extubation today. Critical Care Time: The high probability of a clinically significant, sudden o r life threatening deterioration of the patient's [pulmonary, infectious disease] system(s) required my full and direct attention, intervention and personal management. The critical care time is as shown. This time is in addition to time spent performing any reported procedures but includes the following: [x] Data and vital sign review and interpretation [x] Patient assessment, examination and intervention [x] Documentation [x] Medication orders and management Critical Care Time (min): 33 Coding Level of Care Code Acute Senior Project Manager Engineering for g Fwd Diagnoses Acute on chronic respiratory failure with hypoxia and hypercapnia J96.21; J96.22 Right lower lobe pneumonia J18.9 Acute exacerbation of COPD with asthma J44.1; J45.901 Acute metabolic encephalopathy G93.41 Chronic pain G89.29 Elevated d-dimer R79.89 Hyperglycemia R73.9 Hypertension I10
--- NOTE | 2022-02-07 10:39 | PC.SOCIAL ---
Pg 2 IMM Explained to pt's family Pg 2 IMM. No questions voiced. Provided pt a copy. Initialed, dated, & timed a copy & placed in chart.
[2022-02-07] MEDS: dexmedeTOMIDine 0.9 % NaCL 400 MCG/100 ML PREMIX 14 MCG IV (12:42)
[2022-02-07] MEDS: morphine 4 mg/mL SDV 1 mL 2 MG IVP ×3 (12:48→22:25)
--- NOTE | 2022-02-07 17:21 | PC.NURSE ---
Wasted 30ml of Versed and 110 ml of Fentynal with ROSLYN Berg.
[2022-02-07] MEDS: oxyCODONE 5 mg IR Tab/Cap 10 MG PO (20:18)
[2022-02-07 20:32] LABS: Anion Gap 11.2 (5-19); Blood Urea Nitrogen 14 mg/dL (6-20); Carbon Dioxide 33 mmol/L (22-29); Chloride 99 mmol/L (98-107); Glomerular Filtration Rate 165.7 mL/min (90-130); Glucose 99 mg/dL (65-115); Osmolality Calculated 289 mOsm/kg (285-295); Potassium 4.2 mmol/L (3.5-5.1); Sodium 139 mmol/L (136-145)
[2022-02-07 20:33] LABS: Vancomycin Trough 9.4 ug/mL (10-15)
--- NOTE | 2022-02-07 21:27 | PC.PHAR ---
Vancomycin trough on dose of 1000mg IVPB every 12 hours is 9.4. Dosage is increased to 1250mg IVPB every 12 hours with another trough to be obtained before the fourth 1250mg dose.
[2022-02-07] MEDS: vancomycin 1,250 MG/250 ML PIGGYBACK 250 MG IV (21:53)
[2022-02-08] VITALS (58 sets, daily range): BP systolic 110–169; BP diastolic 58–106; PULSE 83–138; RESP 10–29; TEMP 36.7–37.3; O2SAT 81–98
[2022-02-08] MEDS: ipratropium-albuterol 3 mL Neb INHALATION ×7 (00:28→23:21)
[2022-02-08] MEDS: oxyCODONE 5 mg IR Tab/Cap 10 MG PO ×6 (00:44→21:16)
[2022-02-08] MEDS: morphine 4 mg/mL SDV 1 mL 2 MG IVP ×2 (03:09→05:56)
[2022-02-08 03:42] LABS: Basophils # 0.1 10^3/uL (0.0-0.1); Basophils % 0.4 %; Eosinophils # 0.1 10^3/uL (0.0-0.8); Eosinophils % 0.8 %; Hematocrit 33.3 % (37.0-47.0); Hemoglobin 10.7 g/dL (11.5-15.3); Lymphocytes # 4.2 10^3/uL (0.8-4.8); Lymphocytes % 25.7 %; Mean Corpuscular HGB Conc 32.1 g/dL (30.0-36.0); Mean Corpuscular Hemoglobin 30.7 pg (28.0-34.0); Mean Corpuscular Volume 95.4 fl (81-99); Mean Platelet Volume 10.5 fL (7.4-10.4); Monocytes # 1.9 10^3/uL (0.2-0.9); Monocytes % 11.9 %; Neutrophils # 9.57 10^3/uL (1.8-7.7); Neutrophils % 58.9 %; Nucleated Red Blood Cells % 0 %; Platelet Count 321 10^3/cmm (130-400); Red Blood Count 3.49 10^6/uL (4.1-5.3); Red Cell Distribution Width 14.6 % (12.1-15.1); White Blood Count 16.3 10^3/uL (4.0-10.0)
[2022-02-08 03:58] LABS: Alanine Aminotransferase 15 U/L (0-33); Albumin Level 3.5 g/dL (3.5-5.2); Alkaline Phosphatase 76 U/L (35-105); Anion Gap 13.8 (5-19); Aspartate Amino Transferase 21 U/L (0-32); Blood Urea Nitrogen 10 mg/dL (6-20); Calcium 9.2 mg/dL (8.5-10.5); Carbon Dioxide 34 mmol/L (22-29); Chloride 95 mmol/L (98-107); Globulin 2.9 g/dL (1.3-4.6); Glomerular Filtration Rate 165.7 mL/min (90-130); Glucose 92 mg/dL (65-115); Magnesium 1.6 mg/dL (1.7-2.3); Osmolality Calculated 287 mOsm/kg (285-295); Potassium 3.8 mmol/L (3.5-5.1); Sodium 139 mmol/L (136-145); Total Bilirubin 0.3 mg/dL (0.15-1.2); Total Protein 6.4 g/dL (6.6-8.7)
[2022-02-08] MEDS: dexmedeTOMIDine 0.9 % NaCL 400 MCG/100 ML PREMIX 12.25 MCG IV (05:12)
[2022-02-08] MEDS: diphenhydrAMINE 50 mg/mL SDV 1mL 25 MG IVP (06:12)
[2022-02-08] MEDS: famotidine 20 mg/2 mL INJ IVP (06:15)
--- NOTE | 2022-02-08 06:28 | PC.NURSE ---
Around 0600 Patient's heart rate on the monitor jumped significantly to the mid 140s and Systolic was 198, this nurse went to bedside to check on patient and client reported that her throat was feeling constricted, chest was burning and she felt as though she was going to pass out. Promaxin was running and just about to finish. This nurse stopped the antibiotic and helped the client control breathing. Physician was notified and order for 25mg Benadryl and 20 mg Pepcid was received. Physician came to bedside to check on patient. Patient's heart rate returned to normal for patient and BP began to decrease. She reported some Nausea but throat is less constricted. Patient had one more episode of hypertension and tachycardia but resolved after breathing exercises.
[2022-02-08] MEDS: ondansetron 2 mg/ML SDV 2 mL 4 MG IVP ×2 (06:48→21:33)
--- NOTE | 2022-02-08 07:28 | P.PN_ITS ---
Subjective Subjective: Hilary reports she is nauseated this morning. Nurse was concerned she had a reaction to the Primaxin, feeling flushed nauseated and feeling something in her throat. This is now passing. Feels like her breathing is okay this morning. No chest pain. Medications: Reviewed: Yes Vitals/I&O/Wt Last Vital Signs Temp 98.5 F 02/07/22 19:30 Pulse 117 H 02/08/22 06:30 Resp 25 H 02/08/22 06:30 BP 169/92 02/08/22 06:30 Pulse Ox 91 02/08/22 06:30 O2 Del Method 02/08/22 04:37 O2 Flow Rate 4 02/08/22 04:37 FiO2 40 02/07/22 15:12 02/07/22 02/08/22 02/08/22 22:59 06:59 14:59 Intake Total 800.000 / 1495.216 450 / 1945.216 Output Total 4100 / 4750 Balance 800.000 / 845.216 -3650 / -2804.784 Weight last 48 hrs Weight 71.985 kg Physical Exam Narrative: General exam alert and conversive Neck is supple no lymphadenopathy or thyromegaly. Central line, left subclavian Cardiovascular regular rate and rhythm, heart sounds distant, no murmur Lungs with diminished breath sounds bilaterally but no wheezing Abdomen is soft with positive bowel sounds. No obvious organomegaly , Castillo noted Extremities no cyanosis clubbing or edema, cap refill brisk Skin no rash, no hives Urinary Catheter Management: Castillo Latex: Cath Placed During This Visit: yes Reason for Continuing Indwelling Catheter: Accurate Measurement of Urinary Output in Critically Ill Patients Urinary Catheter Date of Insertion: 02/04/22 Urinary Catheter Time of Insertion: 06:06 Data : 02/08/22 03:21 02/08/22 03:21 A&P Assessment and plan (1) Acute on chronic respiratory failure with hypoxia and hypercapnia: Patient presents with acute respiratory failure, found hypoxic in the field and with significant hypercarbia. Etiology is unknown at this time. This could be secondary to right lower lobe pneumonia, aspiration pneumonitis, or COPD exacerbation. However, narcotic use could potentiate this as well. Extubated yesterday, doing well. Echocardiogram was checked and EF preserved. IVC dilated but I suspect she has higher pressures on the right side from her chronic lung disease. (2) Right lower lobe pneumonia: Appears to have right lower lobe pneumonia, along with atelectasis in the right middle lobe and right lower lobe CTA demonstrated no evidence of pulmonary embolism Currently on vancomycin and Primaxin. Question reaction to Primaxin. Changed to Levaquin. Sputum grew out Serratia. (3) Acute exacerbation of COPD with asthma: DuoNeb every 4 hours Budesonide twice daily Discontinue Solu-Medrol. Changed to prednisone. Has history of COPD, chronically on 4 L of oxygen, with last FEV1 of 0.95, 39%, in 2016. She has continued to smoke heavily since that time and I expect it to have declined significantly. She is now on 4 L of oxygen. (4) Acute metabolic encephalopathy: Secondary to hypoxia, hypercarbia with respiratory failure She is at baseline. No need for CT head. (5) Chronic pain: Patient with history of chronic pain, on chronic narcotics and muscle relaxants Family alerts me that her muscle relaxant has not been taken in the last month. This was discontinued (6) Elevated d-dimer: CTA demonstrated no pulmonary embolism (7) Hyperglycemia: Hemoglobin A1c was normal (8) Hypertension: Restart beta-ginny Plan Hypomagnesemia, supplement Multiple other medical problems as listed in past medical history Full code currently. Discussed palliative care. She is wondering how this could be arranged [place], [place] travel, and does not have Internet access. She is not averse to the idea. Lovenox for DVT prophylaxis Discontinue IV Pepcid. Changed to Protonix for GI prophylaxis Discontinue Castillo Likely transfer out of the unit if nausea resolves then no new concerns Attestations Medical Necessity Statement*: Needs continued hospitalization for IV antibiotics secondary to pneumonia, close monitoring of respiratory failure Coding Level of Care Code Acute Brass Roller for [facility] Fwd Diagnoses Acute on chronic respiratory failure with hypoxia and hypercapnia J96.21; J96.22 Right lower lobe pneumonia J18.9 Acute exacerbation of COPD with asthma J44.1; J45.901 Acute metabolic encephalopathy G93.41 Chronic pain G89.29 Elevated d-dimer R79.89 Hyperglycemia R73.9 Hypertension I10
[2022-02-08] MEDS: budesonide 0.5 mg/2 mL Neb INHALATION ×2 (08:13→20:19)
[2022-02-08] MEDS: magnesium sulfate premix 2 GM/50 ML PIGGYBACK IV (08:20)
[2022-02-08] MEDS: predniSONE 20 mg Tablet 40 MG PO (08:54)
[2022-02-08] MEDS: gabapentin 400 mg Capsule PO ×2 (08:54→16:54)
[2022-02-08] MEDS: BuSPIRONE 10 mg Tablet PO ×2 (08:54→16:54)
[2022-02-08] MEDS: montelukast sodium 10 mg Tablet PO (08:54)
[2022-02-08] MEDS: PARoxetine 20 mg Tablet 10 MG PO (08:55)
[2022-02-08] MEDS: loratadine 10 mg Tablet PO (08:55)
[2022-02-08] MEDS: metoprolol tartrate 25 mg Tablet PO ×2 (08:55→21:17)
[2022-02-08] MEDS: pantoprazole DR 40 mg Tablet PO (08:55)
[2022-02-08] MEDS: roflumilast 500 mcg Tablet PO (08:56)
[2022-02-08] MEDS: levofloxacin-dextrose 5 % 750 MG/150 ML PREMIX 100 MG IV (08:58)
[2022-02-08] MEDS: vancomycin 1,250 MG/250 ML PIGGYBACK 250 MG IV (08:59)
[2022-02-08] MEDS: enoxaparin 40 mg/0.4 mL Syringe SUBCUT (10:51)
[2022-02-08] MEDS: acetaminophen 325 mg Tablet 650 MG PO ×3 (10:52→23:08)
--- NOTE | 2022-02-08 11:52 | PC.CHAP ---
Pastoral Care Encounter/Spiritual Assessment Type of Contact [] Declined chuck wagon cook visit [] Patient/Family/Request visit [] Outpatient visit [] Follow-up visit [] Physician referral [] Code/Alert [x] Routine visit [] Staff referral [] Actively dying [] Patient sleeping [] Family support [] [] Out of room [] Palliative care [] [] Receiving care in room [] Pre-surgical visit [] Trauma [] Long length of stay [x] ICU visit [] Other: Relational/Emotional Strength [] Patient feels connected with others/family/visitors/staff [] Distress [] Loneliness/isolation [] Abandonment Spirituality of Patient [x] Person of Any [] Attends Orthodoxy of their Any [] Believes in Prayer [] Reads Bible or Hindu materials [] There are Spiritual issues to be addressed Contract Recruiter Interventions [] Prayer [] Active listening [] Non-anxious presence [] Spiritual/emotional support [] Crisis/trauma care [] Spiritual counseling [] Bereavement support [] Provided bereavement packet [] Provided Bible/devotional materials [] Provided toy/stuffed animal, coloring book to patient or family member [] Provided Communion [] Anointing/[place] [] Salvation [x] Completed spiritual assessment [] Other: Impact on Illness or Injury [] Angry [] Fearful [] Anxious [] Often cries [] Exhaustion [] Unable to work [] Unable to attend mu-ism [] Unable to walk/stand [] Unable to read [] Unable to drive [] Unable to eat/drink [] Unable to sleep [] Unable to be with family [] Patient intubated [] Other: Summary Time spent with patient
--- NOTE | 2022-02-08 16:23 | P.CONIM_ITS ---
Providers/Reason For Consult Consulting Physician/Specialty*: Palliative Care Reason for Consult*: Pain and symptom management Requesting Physician: Rukhsana Attending Physician: Shree Milian MD Primary Care Provider: JACK Galdamez History of Present Illness History of Present Illness History taken from Dr. Milian, chart and pallaitive SW. Hilary Alegre is a 56 year old female with end stage COPD, FEV1 39% in 2016, on 4L home oxygen, hypercapnea, chronic back pain on chronic opiods. She presented to hospital with hypoxia and hypercapnia requiring extubation. She was found to have SErratia pneumonia, however there is a concern of unintentional overdose of opiod. She continues to smoke. Pt does have T6-8, T12 chronic compression fractures and has an appointment with spine surgery. Pt denies significant SOB, mostly complains of pain to SW and hx of falls. Please see SW note for further psychosocial hisotry. Medications/Allergies Home Medications Medication Instructions Recorded Confirmed Last Taken Type gabapentin 400 mg capsule 400 mg PO BID #60 caps 11/04/21 02/04/22 11/19/21 Rx buspirone 10 mg tablet 10 mg PO BID #60 tabs 01/10/22 02/04/22 Unknown Rx cholecalciferol (vitamin D3) 125 5,000 unit PO DAILY #30 caps 01/10/22 02/04/22 Unknown Rx mcg (5,000 unit) capsule fluticasone fur. 100 mcg-umeclid 1 inh inhalation DAILY #60 ea 01/10/22 02/04/22 Unknown Rx 62.5 mcg-vilant 25 mcg inhalat.powder (Trelegy Ellipta) loratadine 10 mg tablet (Claritin) 10 mg PO DAILY #30 tabs 01/10/22 02/04/22 Unknown Rx metoprolol succinate 50 mg 50 mg PO DAILY #30 tabs 01/10/22 02/04/22 Unknown Rx tablet,extended release 24 hr (Toprol XL) montelukast 10 mg tablet 10 mg PO DAILY #30 tabs 01/10/22 02/04/22 Unknown Rx (Singulair) multivitamin with folic acid 400 1 tab PO DAILY #30 tabs 22 02/04/22 Unknown Rx mcg tablet (Tab-A-Beth) naproxen 500 mg tablet 500 mg PO BID PRN pain #60 tabs 01/10/22 02/04/22 Unknown Rx paroxetine HCl 10 mg tablet (Paxil) 10 mg PO DAILY #30 tabs 01/10/22 02/04/22 Unknown Rx fluticasone propionate 50 2 spray intranasal DAILY Nasal 01/30/22 02/04/22 Unknown Rx mcg/actuation nasal Congestion #16 grams spray,suspension folic acid 800 mcg tablet 800 mcg PO DAILY #30 tabs 01/30/22 02/04/22 Unknown Rx oxycodone 10 mg tablet 10 mg PO Q4H PRN Pain 01/30/22 02/04/22 Unknown History roflumilast 500 mcg tablet 500 mcg PO DAILY #30 tabs 01/30/22 02/04/22 Unknown Rx (Daliresp) syringe with needle, safety 3 mL #1 ea 01/30/22 02/04/22 Unknown Rx 25 gauge x 1 (Easy Touch SheathLock Syringe with Needle) tizanidine 2 mg tablet 2 mg PO BID muscle spasticity #60 01/30/22 02/04/22 Unknown Rx tabs ipratropium 0.5 mg-albuterol 3 mg 3 ml inhalation Q6H.RESPIRATORY 01/31/22 02/04/22 Unknown Rx (2.5 mg base)/3 mL nebulization #300 mL soln albuterol sulfate 90 mcg/actuation 2 puff inhalation Q4H PRN 02/04/22 02/04/22 Unknown History aerosol inhaler (Ventolin HFA) shortness of breath or wheezing cyanocobalamin (vitamin B-12) 1,000 mcg IM Q30D 02/04/22 02/04/22 Unknown History 1,000 mcg/mL injection solution hydroxyzine pamoate 25 mg capsule 25 mg PO BID 02/04/22 02/04/22 Unknown History Allergies Allergy/AdvReac Type Severity Reaction Status Date / Time cephalexin Allergy Intermediate ALGY-Hives Verified 02/03/22 10:45 cilastatin [From Primaxin] Allergy Intermediate ADR-Nausea Verified 02/08/22 07:33 imipenem [From Primaxin] Allergy Intermediate ADR-Nausea Verified 02/08/22 07:33 pregabalin [From Lyrica] Allergy ALGY-Swell Verified 02/03/22 10:45 Lip/Tongue/Throat Current Medications Generic Name Dose Route Start Last Admin Trade Name Freq PRN Reason Stop Dose Admin Acetaminophen 650 mg 02/04/22 10:09 02/08/22 10:52 Acetaminophen 325 Mg Tablet PO 650 mg Q6H PRN Administration MILD PAIN Albuterol/Ipratropium 3 ml 02/04/22 08:15 02/08/22 15:43 Ipratropium-Albuterol 3 Ml Neb INHALATION 3 ml Q4H NANCY Administration Budesonide 0.5 mg 02/05/22 08:00 02/08/22 08:13 Budesonide 0.5 Mg/2 Ml Neb INHALATION 0.5 mg BID.RESPIRATORY NANCY Administration Buspirone HCl 10 mg 02/04/22 10:09 02/08/22 08:54 Buspirone 10 Mg Tablet PO 10 mg BID NANCY Administration Chlorhexidine Gluconate 1 applic 02/05/22 01:00 02/08/22 01:51 Chlorhexidine Gluconate 4% Btl 118 Ml TOPICAL Not Given Q24H NANCY Enoxaparin Sodium 40 mg 02/04/22 10:09 02/08/22 10:51 Enoxaparin 40 Mg/0.4 Ml Syringe SUBCUT 40 mg Q24H NANCY Administration Gabapentin 400 mg 02/04/22 10:09 02/08/22 08:54 Gabapentin 400 Mg Capsule PO 400 mg BID NANCY Administration Vancomycin/PEG/NADA/Lysine/Water 1,250 mg in 250 mls @ 250 mls/hr 02/07/22 21:30 02/08/22 14:41 Vancocin IV Infused Q12H NANCY Infusion Levofloxacin/Dextrose 750 mg in 150 mls @ 100 mls/hr 02/08/22 08:00 02/08/22 10:49 Levaquin-D5w IV Infused Q24H NANCY Infusion Protocol Lanolin 1 applic 02/04/22 22:27 02/04/22 23:39 Lanolin Oint 7 Gm TOPICAL 1 applic PRN PRN Administration DRYNESS Loratadine 10 mg 02/04/22 10:09 02/08/22 08:55 Loratadine 10 Mg Tablet PO 10 mg DAILY NANCY Administration Metoprolol Tartrate 25 mg 02/08/22 09:00 02/08/22 08:55 Metoprolol Tartrate 25 Mg Tablet PO 25 mg BID@0900,2100 NANCY Administration Montelukast Sodium 10 mg 02/04/22 10:09 02/08/22 08:54 Montelukast Sodium 10 Mg Tablet PO 10 mg DAILY NANCY Administration Ondansetron HCl 4 mg 02/04/22 10:09 02/08/22 06:48 Ondansetron 2 Mg/Ml Sdv 2 Ml IVP 4 mg Q6H PRN Administration NAUSEA AND VOMITING Oxycodone HCl 10 mg 02/07/22 18:47 02/08/22 12:46 Oxycodone 5 Mg Ir Tab/Cap PO 10 mg Q4H PRN Administration SEVERE PAIN Pantoprazole Sodium 40 mg 02/08/22 09:00 02/08/22 08:[address] 40 Mg Tablet PO 40 mg DAILY NANCY Administration Prednisone 40 mg 02/08/22 09:00 02/08/22 08:54 Prednisone 20 Mg Tablet PO 40 mg DAILY NANCY Administration Roflumilast 500 mcg 02/04/22 10:30 02/08/22 08:56 Roflumilast 500 Mcg Tablet PO 500 mcg DAILY NANCY Administration PFSH Acute PFSH: Medical History Acute exacerbation of chronic obstructive airways disease Allergic rhinitis due to pollen Anxiety Atherosclerosis Chronic pain Chronic respiratory failure with hypoxia and hypercapnia COPD (chronic obstructive pulmonary disease) Chronically on 4 L of oxygen History of mammogram 2018 Hypertension Neuropathy Nicotine addiction INOCENCIO (obstructive sleep apnea) Osteoarthritis Osteoporosis Pelvic fracture 2018 Personal history of nicotine dependence Rib fracture 2018 Sinusitis Spinal fracture Vitamin B12 deficiency Vitamin D deficiency Surgical History Clavicle fracture H/O adenoidectomy History of appendectomy 1986 History of right shoulder fracture April 2017 Hx of hysterectomy Hx of tonsillectomy Hx of tubal ligation Family History Mother Cancer COPD exacerbation Asthma Father Cancer Social History Smoking and tobacco status: current every day smoker cigarettes Packs smoked per day: 2 Years cigarettes smoked: 40 Second hand smoke exposure: Yes Smoking risk assessment/counseling performed?: Yes Alcohol intake: current Alcohol intake frequency: 0-2 Drinks per Day Desire information about alcohol rehabilitation?: No Counseling given: Yes Desire information about substance/drug rehabilitation?: No Counseling given: No Adopted: No Caregiver/support person: No Lives independently: Yes Household members: none Housing: House Marital status: Legally Number of children: 2 service: No Current occupational status: unemployed and disabled History of recent travel: No Current gender identity: Female Vitals/I&O/Wt Last Vital Signs Temp 98.5 F 02/07/22 19:30 Pulse 101 H 02/08/22 15:45 Resp 20 H 02/08/22 15:43 BP 132/80 02/08/22 14:30 Pulse Ox 96 02/08/22 15:43 O2 Del Method 02/08/22 15:43 O2 Flow Rate 4 02/08/22 15:43 FiO2 40 02/07/22 15:12 02/08/22 02/08/22 02/08/22 06:59 14:59 22:59 Intake Total 450 / 1945.216 699.246 / 699.246 Output Total 4100 / 4750 1600 / 1600 Balance -3650 / -2804.784 -900.754 / -900.754 Weight last 48 hrs Weight 72.575 kg Weight 71.985 kg Physical Exam Narrative: Pt not personally examine. Reviewed labs and spine films Understanding of illness: Good DPOA: no Living Will: no Code Status: Full code Urinary Catheter Management: Castillo Latex: Cath Placed During This Visit: yes Reason for Continuing Indwelling Catheter: Accurate Measurement of Urinary Output in Critically Ill Patients Urinary Catheter Date of Insertion: 02/04/22 Urinary Catheter Time of Insertion: 06:06 Data : 02/08/22 03:21 02/08/22 03:21 A&P Assessment and plan (1) Acute on chronic respiratory failure with hypoxia and hypercapnia: (2) Acute exacerbation of chronic obstructive airways disease: (3) Steroid dependence: (4) Hypertension: (5) COPD (chronic obstructive pulmonary disease): Qualifiers: COPD type: emphysema Emphysema type: panlobular Qualified Code(s): J43.1 - Panlobular emphysema (6) Personal history of nicotine dependence: (7) Anxiety: (8) Alcohol consumption of more than two drinks per day: (9) Hypomagnesemia: (10) Chronic pain: (11) Palliative care encounter: Plan will follow during hospitalization will follow as outpatient Pain control: oxycodone 10 mg q4h prn, Recommend Effexor XR 37.5 mg qhs, to stop paxil and add lidocaine patches to painful areas. Symptom control: denies other symptoms at this time to pallaitive team. Fan, pursed lip breathing, albuterol inhaler prn. Consider RT visit at home. Advance directives: on outpatient basis will have discussions and assist pt in sharing her wishes. Discussed with Palliative SW and DR. Milian. Thank you for allowing our team to participate in the care of this patient. 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
--- NOTE | 2022-02-08 17:29 | PC.NURSE ---
REPORT CALLED TO ROSLYN DIAMOND. ALL QUESTIONS ANSWERED. PT SAFELY TRANSFERRED TO THE FLOOR BY THIS NURSE.
[2022-02-08] MEDS: venlafaxine ER (24HR) 37.5 mg Capsule PO (21:17)
[2022-02-08] MEDS: vancomycin 1,250 MG/250 ML PIGGYBACK 200 MG IV (21:18)
[2022-02-09] VITALS (27 sets, daily range): BP systolic 111–143; BP diastolic 73–83; PULSE 83–113; RESP 16–24; TEMP 36.6–37; O2SAT 90–97
[2022-02-09] MEDS: oxyCODONE 5 mg IR Tab/Cap 10 MG PO ×6 (01:20→21:47)
[2022-02-09] MEDS: acetaminophen 325 mg Tablet 650 MG PO ×3 (03:08→23:51)
[2022-02-09] MEDS: ipratropium-albuterol 3 mL Neb INHALATION ×6 (03:18→23:25)
[2022-02-09] MEDS: ondansetron 2 mg/ML SDV 2 mL 4 MG IVP (05:29)
[2022-02-09 05:35] LABS: Basophils # 0.1 10^3/uL (0.0-0.1); Basophils % 0.4 %; Eosinophils # 0.2 10^3/uL (0.0-0.8); Eosinophils % 1.4 %; Hematocrit 35.3 % (37.0-47.0); Lymphocytes # 3.9 10^3/uL (0.8-4.8); Mean Corpuscular HGB Conc 31.2 g/dL (30.0-36.0); Mean Corpuscular Hemoglobin 29.9 pg (28.0-34.0); Mean Corpuscular Volume 95.9 fl (81-99); Monocytes # 1.6 10^3/uL (0.2-0.9); Monocytes % 10.8 %; Neutrophils # 8.54 10^3/uL (1.8-7.7); Neutrophils % 56.9 %; Nucleated Red Blood Cells % 0 %; Platelet Count 313 10^3/cmm (130-400); Red Blood Count 3.68 10^6/uL (4.1-5.3); Red Cell Distribution Width 14.4 % (12.1-15.1)
[2022-02-09 06:07] LABS: Anion Gap 10.2 (5-19); Blood Urea Nitrogen 12 mg/dL (6-20); Calcium 9.1 mg/dL (8.5-10.5); Carbon Dioxide 34 mmol/L (22-29); Chloride 90 mmol/L (98-107); Glomerular Filtration Rate 165.7 mL/min (90-130); Glucose 81 mg/dL (65-115); Magnesium 1.8 mg/dL (1.7-2.3); Osmolality Calculated 271 mOsm/kg (285-295); Potassium 3.2 mmol/L (3.5-5.1); Sodium 131 mmol/L (136-145)
[2022-02-09] MEDS: budesonide 0.5 mg/2 mL Neb INHALATION ×2 (08:29→20:07)
[2022-02-09] MEDS: levofloxacin-dextrose 5 % 750 MG/150 ML PREMIX 100 MG IV (09:00)
[2022-02-09] MEDS: enoxaparin 40 mg/0.4 mL Syringe SUBCUT (09:00)
[2022-02-09] MEDS: predniSONE 20 mg Tablet 40 MG PO (09:01)
[2022-02-09] MEDS: lidocaine 5% Patch 1 PATCH TOPICAL ×2 (09:01→20:40)
[2022-02-09] MEDS: gabapentin 400 mg Capsule PO ×2 (09:02→17:44)
[2022-02-09] MEDS: montelukast sodium 10 mg Tablet PO (09:02)
[2022-02-09] MEDS: pantoprazole DR 40 mg Tablet PO (09:02)
[2022-02-09] MEDS: loratadine 10 mg Tablet PO (09:02)
[2022-02-09] MEDS: metoprolol tartrate 25 mg Tablet PO (09:03)
[2022-02-09] MEDS: BuSPIRONE 10 mg Tablet PO ×2 (09:03→17:44)
[2022-02-09] MEDS: roflumilast 500 mcg Tablet PO (09:03)
[2022-02-09 09:11] LABS: Vancomycin Trough 16.1 ug/mL (10-15)
--- NOTE | 2022-02-09 09:33 | ECG_ITS ---
[facility] Test Date: 2022-02-09 Pat Name: Hilary Alegre Department: Room: 279 Gender: Female Loom Blower: : 1965 Requested By: Sandra Dowd Order Number: [id number] Aidan MD: Tristen Daniel M.D. Measurements Intervals [place] Rate: 107 P: 57 [place]: 143 QRS: 31 QRSD: 106 T: 58 QT: 353 QTc: 473 Interpretive Statements SINUS TACHYCARDIA INCOMPLETE RIGHT BUNDLE BRANCH BLOCK [90+ ms QRS DURATION, TERMINAL R IN V1/V2, 40+ ms S IN I/aVL/V4/V5/V6] Compared to ECG 02/04/2022 10:58:00 Incomplete right bundle-branch block now present Sinus rhythm no longer present Electronically Signed On 02-10-2022 22:11:09 CDT by Tristen Daniel M.D. [id number]
[2022-02-09] MEDS: lidocaine 2% viscous 15 ML, aluminum-mag hydrox-simethicon 30 ML, sucralfate oral liq 1 GM PO (09:53)
[2022-02-09] MEDS: potassium chloride ER 20 mEq Tablet 40 MEQ PO (09:54)
--- NOTE | 2022-02-09 10:05 | PC.SOCIAL ---
Late documentation. Patient seen on 02/08/22. Pallative care consult ordered by Rukhsana. Shantell Beltran, HISTORICAL SITE GUIDE and Artur Patel Cavity Pump Operator educated pt about pallative care. [place] She self reports osteoporosis and hx of bronchitus. She sees pain management for oxycodone but reports the pain returns in 3 hours. She was to see Dr. Avila about surgery but missed appointment due to inpatient care. Patient does not believe she will be a candidate for surgery due to her breathing issues. She is fatigued easily and has difficulty bathing. Pt is afraid of falling. Patient verbalizes understanding of pallative care and is agreeable to services. 56 y/o female with fears of falling and concerns about her safety. Pt fatigue is increased due to inability to control pain. Pt has COPD, pulmonary edema, bilateral pleural effusion, hypoxic and possible pneumonia. Patient receives 3 hours of home health from [facility]. Pt currently on 10 mg oxycodone every 4 hours. Oxygen baseline is liters. Pt is but . Her spouse and children live near by. Plan: * Control pain * work with pt to establish DPOA/advanced directive if not in place *explore home environment for safety issues and educate about same *establish a safey plan about phone and transportation *provide education about pt dx *consult with Dr. Guan today about patient pain.
[2022-02-09] MEDS: vancomycin 1,250 MG/250 ML PIGGYBACK 200 MG IV ×2 (10:32→20:40)
--- NOTE | 2022-02-09 11:08 | PM.PN ---
Subjective Subjective: Appreciate palliative team consult Patient is stating she uses 4 L of oxygen at home Active smoker She also has trilogy device This morning she was complaining of burning sensation all over her chest rating all the way down to her legs She does take gabapentin She is not describing her discomfort as chest pain I have requested twelve-lead EKG, EKG shows sinus tachycardi, negative CTA chest D-dimer was 2.0, given potassium 40 mg Vitals/I&O/Wt Last Vital Signs Temp 98.2 F 02/09/22 08:00 Pulse 108 H 02/09/22 08:40 Resp 16 02/09/22 09:02 BP 142/82 02/09/22 08:00 Pulse Ox 91 02/09/22 08:29 O2 Del Method 02/09/22 08:29 O2 Flow Rate 4 02/09/22 08:29 FiO2 40 02/08/22 23:12 02/08/22 02/09/22 02/09/22 22:59 06:59 14:59 Intake Total 140.234 / 839.480 580 / 1419.480 150 / 150 Output Total 0 / 1600 Balance 140.234 / -760.520 580 / -180.520 150 / 150 Weight last 48 hrs Weight 71.577 kg Weight 72.575 kg Physical Exam Narrative: Patient was sitting comfortably in her bed Currently on 4 L of oxygen Bilateral breath sounds with mild rhonchi and crackles at the bases Pursed lip breathing No conversational dyspnea She is describing burning sensation from her costal region extending all the way up to her toes Nonfocal neuro exam S1, S2 sinus tachycardia Abdomen soft Pleasant and cooperative Slightly anxious appearing Urinary Catheter Management: Castillo Latex: Cath Placed During This Visit: yes, but has since been removed by the nurse Reason for Continuing Indwelling Catheter: Accurate Measurement of Urinary Output in Critically Ill Patients Urinary Catheter Date of Insertion: 02/04/22 Urinary Catheter Time of Insertion: 06:06 Date Urinary Catheter Removed: 02/08/22 Time Urinary Catheter Discontinued: 14:35 Data : 02/09/22 04:48 02/09/22 04:48 Micro: Microbiology 02/04/22 05:43 Blood Culture - Final Blood NO GROWTH AFTER 5 DAYS 02/04/22 05:40 Blood Culture - Final Blood NO GROWTH AFTER 5 DAYS A&P Assessment and plan (1) Palliative care encounter: (2) Acute on chronic respiratory failure with hypoxia and hypercapnia: Patient currently doing well on 4L nasal cannula (3) Acute exacerbation of chronic obstructive airways disease: (4) COPD (chronic obstructive pulmonary disease): Qualifiers: COPD type: emphysema Emphysema type: panlobular Qualified Code(s): J43.1 - Panlobular emphysema (5) Chronic pain: Patient with history of chronic pain, on chronic narcotics and muscle relaxants Family alerts me that her muscle relaxant has not been taken in the last month. This was discontinued (6) Steroid dependence: (7) Anxiety: (8) Hypertension: Restart beta-ginny (9) Alcohol consumption of more than two drinks per day: (10) Right lower lobe pneumonia: Continue vancomycin and Levaquin, there is no skin rash however she thinks she developed allergic reaction to Primaxin (11) Acute exacerbation of COPD with asthma: DuoNeb every 4 hours Budesonide twice daily Discontinue Solu-Medrol. Currently patient is on prednisone 40mg daily Has history of COPD, chronically on 4 L of oxygen, Also patient the only way to treat her COPD is quitting smoking and using oxygen and stayed compliant with her trilogy at home (12) Acute metabolic encephalopathy: Secondary to hypoxia, hypercarbia with respiratory failure She is at baseline. No need for CT head. (13) Elevated d-dimer: CTA demonstrated no pulmonary embolism (14) Hyperglycemia: Hemoglobin A1c was normal Plan Full code Lovenox for DVT prophylaxis I have given her a GI cocktail today with potassium supplement Hypokalemia: Repleted changed to Protonix for GI prophylaxis Attestations Medical Necessity Statement*: Medical management Plan to discharge her tomorrow Time Spent in Patient Care: 30 Coding Level of Care Code Acute Body Builder for [facility] Fwd Diagnoses Palliative care encounter Z51.5 Acute on chronic respiratory failure with hypoxia and hypercapnia J96.21; J96.22 Acute exacerbation of chronic obstructive airways disease J44.1 COPD (chronic obstructive pulmonary disease) J43.1 COPD type: emphysema Emphysema type: panlobular Chronic pain G89.29 Steroid dependence F19.20 Anxiety F41.9 Hypertension I10 Alcohol consumption of more than two drinks per day Z78.9 Right lower lobe pneumonia J18.9 Acute exacerbation of COPD with asthma J44.1; J45.901 Acute metabolic encephalopathy G93.41 Elevated d-dimer R79.89 Hyperglycemia R73.9
[2022-02-09] MEDS: dilTIAZem 30 mg Tablet PO ×2 (15:56→20:40)
[2022-02-09] MEDS: venlafaxine ER (24HR) 37.5 mg Capsule PO (20:40)
[2022-02-10] VITALS (14 sets, daily range): BP systolic 118–162; BP diastolic 70–93; PULSE 79–116; RESP 16–22; TEMP 36.7–37; O2SAT 90–96
[2022-02-10] MEDS: oxyCODONE 5 mg IR Tab/Cap 10 MG PO ×3 (02:38→10:51)
[2022-02-10] MEDS: ipratropium-albuterol 3 mL Neb INHALATION ×3 (03:13→11:30)
[2022-02-10] MEDS: acetaminophen 325 mg Tablet 650 MG PO (04:06)
[2022-02-10 05:05] LABS: Hematocrit 34.9 % (37.0-47.0); Hemoglobin 11.1 g/dL (11.5-15.3); Mean Corpuscular HGB Conc 31.8 g/dL (30.0-36.0); Mean Corpuscular Hemoglobin 30.1 pg (28.0-34.0); Mean Corpuscular Volume 94.6 fl (81-99); Mean Platelet Volume 10.8 fL (7.4-10.4); Platelet Count 337 10^3/cmm (130-400); Red Blood Count 3.69 10^6/uL (4.1-5.3); Red Cell Distribution Width 14.7 % (12.1-15.1); White Blood Count 15.9 10^3/uL (4.0-10.0)
[2022-02-10 05:27] LABS: Absolute Eosinophils 0.3 10^3/cmm (0.0-0.7); Absolute Neutrophil 10.2 10^3/cmm (1.4-6.5); Absolute Segmented Neutrophil 9.5 10/cmm (1.6-7.1); Band Neutrophils Absolute 0.6 10^3/cmm (0.0-1.2); Eosinophils 2 %; Lymphocytes 23 %; Lymphocytes Absolute 3.7 10^3/cmm (1.2-3.4); Monocytes Absolute 1.4 10^3/cmm (0.1-0.6); Platelet Estimate Normal (Normal); Segmented Neutrophils 60 %; Total Cells Counted 100 (0-100)
[2022-02-10 05:31] LABS: Anion Gap 10.5 (5-19); Blood Urea Nitrogen 7 mg/dL (6-20); Calcium 9.1 mg/dL (8.5-10.5); Carbon Dioxide 34 mmol/L (22-29); Chloride 95 mmol/L (98-107); Glomerular Filtration Rate 165.7 mL/min (90-130); Glucose 90 mg/dL (65-115); Osmolality Calculated 280 mOsm/kg (285-295); Potassium 3.5 mmol/L (3.5-5.1); Sodium 136 mmol/L (136-145)
[2022-02-10] MEDS: LORazepam 0.5 mg Tablet PO (06:58)
--- NOTE | 2022-02-10 07:28 | ECG_ITS ---
[facility] Test Date: 2022-02-10 Pat Name: Hilary Alegre Department: Room: 279 Gender: Female Assembler: : 1965 Requested By: Dain Badillo Order Number: [id number] Bermudez MD: Tristen Daniel M.D. Measurements Intervals [place] Rate: 120 P: 58 [place]: 143 QRS: 33 QRSD: 102 T: 63 QT: 327 QTc: 462 Interpretive Statements SINUS TACHYCARDIA INCOMPLETE RIGHT BUNDLE BRANCH BLOCK [90+ ms QRS DURATION, TERMINAL R IN V1/V2, 40+ ms S IN I/aVL/V4/V5/V6] Compared to ECG 02/09/2022 09:33:11 No significant changes Electronically Signed On 02-10-2022 21:58:44 CDT by Tristen Daniel M.D. [id number]
[2022-02-10] MEDS: budesonide 0.5 mg/2 mL Neb INHALATION (07:35)
--- NOTE | 2022-02-10 08:02 | P.DS_ITS ---
Discharge Providers Date of Admission: 02/04/22 10:09 Date of Discharge: February 10, 2022 Attending Provider at Admission: Shree Milian MD Attending Provider at Discharge: Sandra Dowd MD Primary Care Provider: JACK Galdamez Diagnoses at Discharge Discharge Diagnosis (1) Palliative care encounter: Status: Acute (2) Acute on chronic respiratory failure with hypoxia and hypercapnia: Status: Acute (3) Acute exacerbation of chronic obstructive airways disease: Status: Acute (4) COPD (chronic obstructive pulmonary disease): Status: Chronic Qualifiers: COPD type: emphysema Emphysema type: panlobular Qualified Code(s): J43.1 - Panlobular emphysema Permanent problem details: Chronically on 4 L of oxygen (5) Chronic pain: Status: Acute (6) Steroid dependence: Status: Chronic Permanent problem details: Recurrent use due to COPD (7) Anxiety: Status: Chronic (8) Hypertension: Status: Acute (9) Alcohol consumption of more than two drinks per day: Status: Acute (10) Right lower lobe pneumonia: Status: Acute (11) Acute exacerbation of COPD with asthma: Status: Acute (12) Acute metabolic encephalopathy: Status: Acute (13) Elevated d-dimer: Status: Acute (14) Hyperglycemia: Status: Acute Reason for Visit Reason for Visit: RESP DISRESS Hospital Course Hospital Course 56-year-old female who has end-stage COPD uses 4 L of oxygen at baseline, lives with her son, active smoker, she was intubated by the ER physician at the time of arrival EMS was dispatched respite distress kindly see H&P for further details. Patient was successfully extubated, during her hospitalization there was some concern regarding allergic reaction to Primaxin when she vomited her antibiotics were changed which were given for her community-acquired pneumonia, sputum culture showed Serratia and nares MRSA PCR positive, she was kept on Levaquin and vancomycin. Her metabolic encephalopathy related to hypercarbia resolved. She had elevated D-dimer and CTA ruled out PE. For her right lower lobe pneumonia she will get doxycycline and Levaquin at the time of discharge I have also added Medrol pack. She has remained sinus tachycardic throughout her hospitalization I have noticed with albuterol she becomes tremulous and experiences sinus tachycardia. I have increased the dose of cardizem daily 240mg. Dr. Olvera was consulted for palliative management, her team did follow-up after discharge Physical Exam Narrative: Patient was sitting comfortably Currently on 4 L of oxygen Bilateral breath sounds with mild rhonchi No conversational dyspnea Nonfocal neuro exam S1, S2 sinus tachycardia Abdomen soft Pleasant and cooperative anxious appearing Urinary Catheter Management: Castillo Latex: Cath Placed During This Visit: yes, but has since been removed by the nurse Reason for Continuing Indwelling Catheter: Accurate Measurement of Urinary Output in Critically Ill Patients Urinary Catheter Date of Insertion: 02/04/22 Urinary Catheter Time of Insertion: 06:06 Date Urinary Catheter Removed: 02/08/22 Time Urinary Catheter Discontinued: 14:35 Discharge Data Studies Completed and Pending Completed Studies During Hospitalization Category Date Time Status CTA chest [CT angio chest w abd pel w con] Stat Cat Scan 02/04/22 06:45 Completed XR chest 1V portable [id number] Routine Exams 02/05/22 07:00 Completed XR chest 1V portable [id number] Routine Exams 02/06/22 07:00 Completed XR chest 1V portable [id number] Routine Exams 02/07/22 07:00 Completed XR chest 1V portable [id number] Stat Exams 02/04/22 05:28 Completed XR chest 1V portable [id number] Stat Exams 02/04/22 06:18 Completed CV. echo complete* [id number] Routine Ultrasound 02/05/22 07:20 Completed Pending at discharge Category Date Time Status Troponin T (5th) Once Stat Lab 02/10/22 07:00 Received Radiology Impressions Chest/Abdomen/Pelvis CT 02/04/22 06:45 IMPRESSION: 1. No central pulmonary embolism. Beyond the segmental branches opacification is suboptimal. Cannot exclude distal pulmonary emboli. 2. Enlarged pulmonary artery. No RIGHT heart strain. 3. Partial atelectasis RIGHT middle and RIGHT lower lobes with volume loss in the RIGHT thorax. 4. Nasogastric and endotracheal tubes in good position. 5. No ascites. 6. Mildly prominent, indeterminate mediastinal and hilar lymph nodes. 7. Mild interstitial edema and focal pneumonitis central RIGHT upper lobe. 8. New since 11/21/2021 are minimal compression fractures and L1 and L2. 9. Remote rib fractures, bilateral. 10. New thoracic spine osteoporotic compression fractures since 10/01/2021 at T6, T7 and T8. Chest X-Ray 02/07/22 07:00 IMPRESSION: Imaging findings of pulmonary edema with small bilateral pleural effusions. Pneumonia should be excluded clinically. Laboratory Results WBC 15.9 10^3/uL (4.0-10.0) H 02/10/22 04:30 RBC 3.69 10^6/uL (4.1-5.3) L 02/10/22 04:30 Hgb 11.1 g/dL (11.5-15.3) L 02/10/22 04:30 Hct 34.9 % (37.0-47.0) L 02/10/22 04:30 MCV 94.6 fl (81-99) 02/10/22 04:30 MCH 30.1 pg (28.0-34.0) 02/10/22 04:30 MCHC 31.8 g/dL (30.0-36.0) 02/10/22 04:30 RDW 14.7 % (12.1-15.1) 02/10/22 04:30 Plt Count 337 10^3/cmm (130-400) 02/10/22 04:30 MPV 10.8 fL (7.4-10.4) H 02/10/22 04:30 Neut % (Auto) 56.9 % 02/09/22 04:48 Lymph % (Auto) Not Reportable 02/10/22 04:30 Imperial % (Auto) Not Reportable 02/10/22 04:30 Eos % (Auto) 1.4 % 02/09/22 04:48 Baso % (Auto) 0.4 % 02/09/22 04:48 Neut # (Auto) 8.54 10^3/uL (1.8-7.7) H 02/09/22 04:48 Lymph # (Auto) Not Reportable 02/10/22 04:30 Imperial # (Auto) Not Reportable 02/10/22 04:30 Eos # (Auto) 0.2 10^3/uL (0.0-0.8) 02/09/22 04:48 Baso # (Auto) 0.1 10^3/uL (0.0-0.1) 02/09/22 04:48 Nucleated RBC % (auto) 0 % 02/09/22 04:48 Total Counted 100 (0-100) 02/10/22 04:30 Atypical Lymphs % 0.0 % (0-5) 02/10/22 04:30 Absolute Neutrophils 10.2 10^3/cmm (1.4-6.5) H 02/10/22 04:30 Segmented Neutrophils 60 % 02/10/22 04:30 Abs Segm Neuts (Man) 9.5 10/cmm (1.6-7.1) H 02/10/22 04:30 Band Neutrophils 4.0 % 02/10/22 04:30 Abs Band Neuts (Man) 0.6 10^3/cmm (0.0-1.2) 02/10/22 04:30 Absolute Lymphocytes 3.7 10^3/cmm (1.2-3.4) H 02/10/22 04:30 Lymphocytes (Manual) 23 % 02/10/22 04:30 Monocytes (Manual) 9.0 % 02/10/22 04:30 Absolute Monocytes 1.4 10^3/cmm (0.1-0.6) H 02/10/22 04:30 Eosinophils (Manual) 2 % 02/10/22 04:30 Absolute Eosinophils 0.3 10^3/cmm (0.0-0.7) 02/10/22 04:30 Basophils (Manual) 0.0 % 02/10/22 04:30 Absolute Basophils 0.0 10^3/cmm (0.0-0.2) 02/10/22 04:30 Metamyelocytes 1.0 % 02/10/22 04:30 Myelocytes 1.0 % 02/10/22 04:30 Nucleated RBCs # 0.0 /100WBC 02/09/22 04:48 Platelet Estimate Normal (Normal) 02/10/22 04:30 PT 13.40 SECONDS (12.1-14.9) 02/04/22 05:35 INR 0.99 (0.8-1.2) 02/04/22 05:35 D-Dimer 2.02 ug/mIFEU (0-0.59) H 02/04/22 05:35 Specimen Type Arterial 02/07/22 05:22 Sample Site Brachial, right 02/07/22 05:22 ABG pH 7.39 (7.35-7.45) 02/07/22 05:22 ABG pCO2 55.2 mmHg (35-45) H 02/07/22 05:22 ABG pO2 66.3 mmHg (80.0-100.0) L 02/07/22 05:22 ABG HCO3 33.5 mmol/L (22-26) H 02/07/22 05:22 ABG Base Excess 7.3 mmol/L (-2.0-2.0) H 02/07/22 05:22 Hans Test Pos 02/07/22 05:22 Hematocrit 32.5 % (37-47) L 02/07/22 05:22 Hgb O2 Saturation 94.5 % (95-100) L 02/04/22 05:27 Carboxyhemoglobin 5.0 %THgb (0.4-20.1) 02/04/22 05:27 Methemoglobin 0.9 % (0.4-1.5) 02/04/22 05:27 Total Hemoglobin 12.0 g/dL (12-16) 02/04/22 05:27 O2 Delivery Device Vent 02/07/22 05:22 O2 Liters/Min 18.0 % 02/04/22 08:49 FiO2 40.0 % 02/07/22 05:22 Tidal Volume 0.40 02/07/22 05:22 PEEP 8.0 cmH20 02/07/22 05:22 Dairy Bar Manager ID Adam 02/07/22 05:22 Sodium 136 mmol/L (136-145) 02/10/22 04:30 Potassium 3.5 mmol/L (3.5-5.1) 02/10/22 04:30 Chloride 95 mmol/L (98-107) L 02/10/22 04:30 Carbon Dioxide 34 mmol/L (22-29) H 02/10/22 04:30 Anion Gap 10.5 (5-19) 02/10/22 04:30 BUN 7 mg/dL (6-20) 02/10/22 04:30 Creatinine 0.4 mg/dL (0.5-0.9) L 02/10/22 04:30 GFR Calculation 165.7 mL/min (90-130) H 02/10/22 04:30 Glucose 90 mg/dL (65-115) 02/10/22 04:30 Estimat Average Glucose 100 02/04/22 05:35 Hemoglobin A1c 5.1 % (4.0-6.0) 02/04/22 05:35 Calculated Osmolality 280 mOsm/kg (285-295) L 02/10/22 04:30 Lactic Acid 0.7 mmol/L (0.5-2.2) 02/04/22 05:35 Calcium 9.1 mg/dL (8.5-10.5) 02/10/22 04:30 Magnesium 1.8 mg/dL (1.7-2.3) 02/09/22 04:48 Total Bilirubin 0.3 mg/dL (0.15-1.2) 02/08/22 03:21 AST 21 U/L (0-32) 02/08/22 03:21 ALT 15 U/L (0-33) 02/08/22 03:21 Alkaline Phosphatase 76 U/L (35-105) 02/08/22 03:21 Troponin T Baseline 11 ng/L (0-10) H 02/04/22 05:35 Troponin T 120 Minute 9.26 ng/L (0-10) 02/04/22 07:35 Delta Troponin T -1.74 ABS# (0-10) L 02/04/22 07:35 Troponin T Hi Sens 6Hr 8.40 ng/L (0-10) 02/04/22 11:30 Troponin T Hi Sens 6Hr Delta -2.60 ng/L (0-12) L 02/04/22 11:30 NT-Pro-B Natriuret Pep 317 pg/mL (0-125) H 02/04/22 05:35 Total Protein 6.4 g/dL (6.6-8.7) L 02/08/22 03:21 Albumin 3.5 g/dL (3.5-5.2) 02/08/22 03:21 Globulin 2.9 g/dL (1.3-4.6) 02/08/22 03:21 Urine Color Yellow (Yellow) 02/04/22 05:43 Urine Appearance Sl hazy (CLEAR) A 02/04/22 05:43 Urine pH 6.5 (5-7) 02/04/22 05:43 Ur Specific Reserve 1.015 (1.005-1.030) 02/04/22 05:43 Urine Protein Trace (Negative) 02/04/22 05:43 Urine Glucose (UA) Norm (Normal) 02/04/22 05:43 Urine Ketones Negative (Negative) 02/04/22 05:43 Urine Blood Neg (Negative) 02/04/22 05:43 Urine Nitrate Negative (Negative) 02/04/22 05:43 Urine Bilirubin Neg (Negative) 02/04/22 05:43 Urine Urobilinogen Norm mg/dL (Negative) 02/04/22 05:43 Ur Leukocyte Esterase Negative (Negative) 02/04/22 05:43 Urine RBC None /hpf (0-2) 02/04/22 05:43 Urine WBC 0-4 /hpf (0-5) H 02/04/22 05:43 Ur Squamous Epith Cells 0-4 /hpf (0-5) H 02/04/22 05:43 Amorphous Sediment 2+ /hpf 02/04/22 05:43 Urine Bacteria 1+ /hpf (NONE) H 02/04/22 05:43 Coarse Granular Casts 0-4 /lpf H 02/04/22 05:43 Vancomycin Trough 16.1 ug/mL (10-15) H 02/09/22 08:34 Coronavirus 229E (PCR) Not detected (NOT DETECT) 02/04/22 08:34 SARS-CoV-2 (PCR) Not detected (NOT DETECT) 02/04/22 08:34 SARS-CoV-2 Ag (Rapid) negative (Negative) 02/04/22 05:43 Vitals Last Vital Signs Temp 98.6 F 02/10/22 04:00 Pulse 109 H 02/10/22 07:42 Resp 16 02/10/22 07:42 BP 123/75 02/10/22 04:00 Pulse Ox 94 02/10/22 07:42 O2 Del Method 02/10/22 07:42 O2 Flow Rate 4 02/10/22 07:42 FiO2 40 02/08/22 23:12 Discharge Plan Discharge Patient Disposition: Home Condition: Stable Prescriptions: New levofloxacin 750 mg tablet 750 mg PO DAILY 7 Days Qty: 7 0RF doxycycline hyclate 100 mg tablet 100 mg PO BID 7 Days Qty: 14 0RF Medrol (Jesus) 4 mg tablets,dose pack 4 mg PO DAILY Qty: 21 0RF Cardizem CD 240 mg capsule,extended release 24hr 240 mg PO DAILY Qty: 90 1RF Continued fluticasone propionate 50 mcg/actuation spray,suspension 2 spray INTRANASAL DAILY Qty: 16 2RF (DME) Easy Touch SheathLock Syrg-Ndl 3 mL 25 gauge x 1 syringe See Rx Instructions .ROUTE .MEDSUPPLY Qty: 1 2RF Rx Instructions: use monthly with Vitamin B12 tizanidine 2 mg tablet 2 mg PO BID Qty: 60 2RF Rx Instructions: dose decrease Daliresp 500 mcg tablet 500 mcg PO DAILY Qty: 30 2RF oxycodone 10 mg tablet 10 mg PO Q4H PRN (Reason: Pain) folic acid 800 mcg tablet 800 mcg PO DAILY Qty: 30 2RF Rx Instructions: dose decrease ipratropium-albuterol 0.5 mg-3 mg(2.5 mg base)/3 mL solution for nebulization 3 ml inhalation Q6H.RESPIRATORY Qty: 300 5RF gabapentin 400 mg capsule 400 mg PO BID Qty: 60 2RF Rx Instructions: nerve pain multivitamin with folic acid [Tab-A-Beth] 400 mcg tablet 1 tab PO DAILY Qty: 30 2RF montelukast [Singulair] 10 mg tablet 10 mg PO DAILY Qty: 30 2RF paroxetine HCl [Paxil] 10 mg tablet 10 mg PO DAILY Qty: 30 2RF naproxen 500 mg tablet 500 mg PO BID PRN (Reason: pain) Qty: 60 2RF Trelegy Ellipta 100-62.5-25 mcg blister with device 1 inh inhalation DAILY Qty: 60 2RF cholecalciferol (vitamin D3) 125 mcg (5,000 unit) capsule 5,000 unit PO DAILY Qty: 30 2RF loratadine [Claritin] 10 mg tablet 10 mg PO DAILY Qty: 30 2RF buspirone 10 mg tablet 10 mg PO BID Qty: 60 2RF Rx Instructions: Ventolin HFA 90 mcg/actuation HFA aerosol inhaler 2 puff inhalation Q4H MDD 6 times PRN (Reason: shortness of breath or wheezing) cyanocobalamin (vitamin B-12) 1,000 mcg/mL solution 1,000 mcg IM Q30D hydroxyzine pamoate 25 mg capsule 25 mg PO BID Discontinued metoprolol succinate [Toprol XL] 50 mg tablet extended release 24 hr 50 mg PO DAILY Qty: 30 2RF Discharge Orders: Discharge Order (Routine); Ordered 02/10/22 Ordered By: Sandra Dowd Referrals: Datar,Rafael Levine MD [Physician] - 2 weeks (Please call Friday morning to schedule a hospital follow up with Dr. Gary within 2 weeks. ) Arnaldo Pimentel, NAKITA-C [Primary Care Provider] - 1 week (Please call Friday morning to schedule a hospital follow up appointment within 1 week.) Discharge Diet: Cardiac Discharge Activity: Increase activity as tolerated Patient Instructions: Metoprolol (By mouth), Doxycycline (By mouth), Methylprednisolone (By mouth), Levofloxacin (By mouth), COPD (Chronic Obstructive Pulmonary Disease) (GEN), Opioid Safety Discharge Attestations Time Spent in Discharge Care*: less than 30 min Quality Metrics Clinical Quality Measures [ No reported AMI, CVA or VTE this stay] Coding Level of Care Code Acute Chg FW DC note Diagnoses Palliative care encounter Z51.5 Acute on chronic respiratory failure with hypoxia and hypercapnia J96.21; J96.22 Acute exacerbation of chronic obstructive airways disease J44.1 COPD (chronic obstructive pulmonary disease) J43.1 COPD type: emphysema Emphysema type: panlobular Chronic pain G89.29 Steroid dependence F19.20 Anxiety F41.9 Hypertension I10 Alcohol consumption of more than two drinks per day Z78.9 Right lower lobe pneumonia J18.9 Acute exacerbation of COPD with asthma J44.1; J45.901 Acute metabolic encephalopathy G93.41 Elevated d-dimer R79.89 Hyperglycemia R73.9
[2022-02-10 08:09] LABS: Troponin T (5th) Once 9 ng/L (0-10)
[2022-02-10] MEDS: predniSONE 20 mg Tablet 40 MG PO (08:17)
[2022-02-10] MEDS: roflumilast 500 mcg Tablet PO (08:17)
[2022-02-10] MEDS: dilTIAZem 30 mg Tablet PO (08:17)
[2022-02-10] MEDS: BuSPIRONE 10 mg Tablet PO (08:17)
[2022-02-10] MEDS: loratadine 10 mg Tablet PO (08:17)
[2022-02-10] MEDS: pantoprazole DR 40 mg Tablet PO (08:17)
[2022-02-10] MEDS: gabapentin 400 mg Capsule PO (08:17)
[2022-02-10] MEDS: montelukast sodium 10 mg Tablet PO (08:17)
[2022-02-10] MEDS: levofloxacin-dextrose 5 % 750 MG/150 ML PREMIX 100 MG IV (08:18)
[2022-02-10] MEDS: lidocaine 5% Patch 1 PATCH TOPICAL (08:24)
[2022-02-10] MEDS: metoprolol tartrate 50 mg Tablet 100 MG PO (09:18)
[2022-02-10] MEDS: vancomycin 1,250 MG/250 ML PIGGYBACK 200 MG IV (09:21)
[2022-02-10] MEDS: enoxaparin 40 mg/0.4 mL Syringe SUBCUT (09:21)
--- NOTE | 2022-02-11 13:31 | PC.NURSE ---
Patient's daughter called stating that all medications were picked up from the pharmacy except for Diltiazem, which wasn't received as a transfer from [facility] to [facility]. She also is stating that the Medrol instructions she received from [facility] was 4 mg 1 tablet PO daily, however she was under the understanding that this would be a tapering dose. I called and provided a verbal order for diltiazem as ordered in d/c medications to [facility], then called and spoke with Dr. Dowd and verified the Medrol dose instructions. He gave verbal order for patient to take 2 tablets on the first day, 1 tablet on the second day, then alternate 1 tablet every other day until day 6, then stop. I called back to patient's daughter and informed her that I had called in the Rx to [facility] and provided instructions for Medrol dose pack. She wrote this information down and verbalized understanding. She denies any further questions or concerns.
== END 2022-02-10 12:20 | disposition home health service (06) | DRG 208 ==
LOC: ER 06:45 → ICU 10:08 → MEDSURG 02-08 17:05
PROVIDERS: Emergency Medicine; Internal Medicine; Admitting Provider Internal Medicine; Emergency Provider Family Medicine; PCP Nurse Practitioner; Visit Provider Internal Medicine
DX: J96.22 Acute and chronic respiratory failure with hypercapnia (principal); J18.9 Pneumonia, unspecified organism; G93.41 Metabolic encephalopathy; M48.54XA Collapsed vertebra, not elsewhere classified, thoracic region, initial encounter for fracture; J96.21 Acute and chronic respiratory failure with hypoxia; J43.1 Panlobular emphysema; F41.9 Anxiety disorder, unspecified; I25.10 Atherosclerotic heart disease of native coronary artery without angina pectoris; G89.29 Other chronic pain; Z99.81 Dependence on supplemental oxygen; I10 Essential (primary) hypertension; G62.9 Polyneuropathy, unspecified; G47.33 Obstructive sleep apnea (adult) (pediatric); F17.210 Nicotine dependence, cigarettes, uncomplicated; E53.8 Deficiency of other specified B group vitamins; Z79.891 Long term (current) use of opiate analgesic; R00.0 Tachycardia, unspecified; B95.62 Methicillin resistant Staphylococcus aureus infection as the cause of diseases classified elsewhere; E87.6 Hypokalemia; F10.90 Alcohol use, unspecified, uncomplicated; Z79.52 Long term (current) use of systemic steroids; Z91.81 History of falling; E83.42 Hypomagnesemia; R73.9 Hyperglycemia, unspecified
CPT/HCPCS: 36415; 36592; 36600; 51702; 71045; 71275; 74177; 80048; 80053; 80202; 81001; 82803; 82805; 83036; 83605; 83735; 83880; 84484; 85007; 85025; 85378; 85610; 87040; 87070; 87077; 87186; 87205; 87426; 87635; 87641; 93005; 93306; 94002; 94003; 94640; 94799; 96365; 96366; 96367; 96368; 96372; 96375; 97110; 97161; 97166; 97530; 99291; J0743; J1200; J1650; J1940; J1956; J2250; J2270; J2405; J2543; J2704; J2930; J3010; J3370; J3475; J3480; J3490; J7030; J7050; J7512; J7626; Q9967; S0030

== ENCOUNTER 2022-02-11 22:26 | Emergency (ER) | payer MEDICARE, MEDICAID, SELFPAY ==
[2022-02-11 22:39] VITALS: BP 131/70; PULSE 100; RESP 18; TEMP 37.3; O2SAT 98; BMI 30.2
--- NOTE | 2022-02-11 22:41 | ECG_ITS ---
[facility] Test Date: 2022-02-11 Pat Name: Hilary Alegre Department: Room: Gender: Female Stitch Wheeler: : 1965 Requested By: Grzegorz Angulo Order Number: [id number] Aidan MD: Tristen Daniel M.D. Measurements Intervals [place] Rate: 100 P: 59 DE: 136 QRS: 40 QRSD: 102 T: 61 QT: 353 QTc: 456 Interpretive Statements SINUS TACHYCARDIA Compared to ECG 02/10/2022 07:28:08 Incomplete right bundle-branch block no longer present Electronically Signed On 02-12-2022 3:46:16 CDT by Tristen Daniel M.D. [id number]
[2022-02-11 22:46] VITALS: PULSE 97; RESP 18; O2SAT 98
--- NOTE | 2022-02-11 22:54 | XRR_ITS ---
PROCEDURE INFORMATION: Exam: XR Chest Exam date and time: 02/11/2022 11:07 PM Age: 56 years old Clinical indication: Pain; Cough and shortness of breath; Chest pressure; Prior surgery; Surgery type: Clavicle fixation; Patient HX: C/O chest discomfort with cough, SOB, and tachycardia. ; Additional info: Cp TECHNIQUE: Imaging protocol: Radiologic exam of the chest. Views: 1 view. COMPARISON: CR XR chest 1V portable [id number] 02/07/2022 4:35 AM FINDINGS: Lungs: Emphysematous changes. Bibasilar atelectasis. Pleural spaces: Trace bilateral pleural effusions. Heart/Mediastinum: Unremarkable. No cardiomegaly. Bones/joints: Unremarkable. XR/XR chest 1V portable [id number] IMPRESSION: 1. Emphysematous changes. 2. Trace bilateral pleural effusions. 3. Bibasilar atelectasis.
[2022-02-11 23:00] VITALS: BP 120/85; PULSE 99; RESP 20; O2SAT 96
--- NOTE | 2022-02-11 23:03 | ED_ITS ---
HPI - Chest Pain General: Chief Complaint: Chest Pain Stated Complaint: Tachycardia Time Seen by Provider: 02/11/22 22:29 Source: patient and EMS Mode of arrival: EMS Limitations: no limitations History of Present Illness: 56-year-old female who states she started having chest pain tonight states the burning pain in the center of her chest she was recently admitted here and discharged yesterday for pneumonia. She has end- stage COPD she is on 5 L of oxygen at all times states she is currently pain-f ree she had no increasing shortness of breath no fevers. Associated symptoms: Deny abdominal pain, dyspnea, fever(s), nausea or vomiting Review of Systems Const: Denies: fever(s), chills, body aches or change in appetite Eyes: Denies: blurry vision or eye discomfort ENMT: Denies: throat pain or dental pain Card: Reports: chest pain Resp: Denies: dyspnea GI: Denies: abdominal pain, nausea, vomiting or diarrhea : Denies: dysuria Musc: Denies: neck pain or back pain Skin/Breast: Denies: rash Neuro: Denies: headache(s) Psych: Denies: depression Kvng/Lymph: Denies: easy bruising All/Imm: Denies: urticaria PFSH ED PFSH: Medical History Acute exacerbation of chronic obstructive airways disease Acute exacerbation of chronic obstructive airways disease Acute exacerbation of COPD with asthma Acute metabolic encephalopathy Acute on chronic respiratory failure with hypoxia and hypercapnia Alcohol consumption of more than two drinks per day Allergic rhinitis due to pollen Anxiety Atherosclerosis Chronic pain Chronic respiratory failure with hypoxia and hypercapnia COPD (chronic obstructive pulmonary disease) Chronically on 4 L of oxygen Elevated d-dimer History of mammogram 2018 Hyperglycemia Hypertension Hypomagnesemia Neuropathy Nicotine addiction INOCENCIO (obstructive sleep apnea) Osteoarthritis Osteoporosis Palliative care encounter Pelvic fracture 2018 Personal history of nicotine dependence Rib fracture 2018 Right lower lobe pneumonia Sinusitis Spinal fracture Steroid dependence Recurrent use due to COPD Vitamin B12 deficiency Vitamin D deficiency Surgical History Clavicle fracture H/O adenoidectomy History of appendectomy 1986 History of right shoulder fracture April 2017 Hx of hysterectomy Hx of tonsillectomy Hx of tubal ligation Family History Mother Cancer COPD exacerbation Asthma Father Cancer Social History Smoking and tobacco status: current every day smoker cigarettes Packs smoked pe r day: 2 Years cigarettes smoked: 40 Second hand smoke exposure: Yes Smoking risk assessment/counseling performed?: Yes Alcohol intake: current Alcohol intake frequency: 0-2 Drinks per Day Desire information about alcohol rehabilitation?: No Counseling given: Yes Desire information about substance/drug rehabilitation?: No Counseling given: No Adopted: No Caregiver/support person: No Lives independently: Yes Household members: none Housing: House Marital status: Legally Number of children: 2 service: No Current occupational status: unemployed and disabled History of recent travel: No Current gender identity: Female Physical Exam Const: COMMON NORMALS: patient oriented x3 HENMT: COMMON NORMALS: normocephalic and atraumatic HEAD & SCALP: normoceph alic and atraumatic Eye: COMMON NORMALS: Equal, round and reactive pupils present and EOMs intact bilaterally PUPIL: Yes Equal, round and reactive pupils present Neck/C-Spine: COMMON NORMALS: full ROM and supple Chest: COMMONS NORMALS: normal inspection of the chest and normal palpation of entire chest wall Resp: COMMON NORMALS: normal respiratory effort, No retractions, No use of accessory muscles and clear to auscultation bilaterally AUSCULTATION: clear to auscultation bilaterally Cardio: COMMON NORMALS: regular rate, regular rhythm and No murmurs present (Cardio) RATE: regular rate RHYTHM: regular rhythm GI: COMMON NORMALS: Normal to inspection, nondistended, normoactive bowel sounds present, Soft to palpation, non-tender and no masses PALPATION: Yes Soft to palpation Extremity: COMMON NORMALS: normal to inspection and full ROM Neuro: COMMON NORMALS: patient oriented x3, moves all extremities and no focal motor deficits Psych: COMMON NORMALS: mental status grossly normal, Normal thought process present and cooperative THOUGHT PROCESS: Normal thought process present Skin: COMMON NORMALS: no rashes or lesions noted and no wounds GENERAL SKIN EXAM: no rashes or lesions noted Course Vital Signs: Vital signs: Vital Signs Temperature 99.1 F 02/11/22 22:39 Pulse Rate 91 02/12/22 00:00 Respiratory Rate 16 02/12/22 00:00 Blood Pressure 122/80 02/12/22 00:00 Pulse Oximetry 97 02/12/22 00:00 Oxygen Delivery Me thod 02/12/22 00:00 Oxygen Flow Rate 4 02/12/22 00:00 MDM - Chest Pain Medical Decision Making Patient presents with chest pain she been pain-free here her troponins normal x- ray shows no change she is stable on her 5 L oxygen she is stable for discharge she is to follow-up with PCP and return if worsening. Lab Data : 02/11/22 22:49 02/11/22 22:49 Radiology Impressions Chest X-Ray 02/11/22 22:54 IMPRESSION: 1. Emphysematous changes. 2. Trace bilateral pleural effusions. 3. Bibasilar atelectasis. Laboratory Results WBC 11.4 10^3/uL (4.0-10.0) H 02/11/22 22:49 RBC 4.05 10^6/uL (4.1-5.3) L 02/11/22 22:49 Hgb 12.2 g/dL (11.5-15.3) 02/11/22 22:49 Hct 38.1 % (37.0-47.0) 02/11/22 22:49 MCV 94.1 fl (81-99) 02/11/22 22:49 MCH 30.1 pg (28.0-34.0) 02/11/22 22:49 MCHC 32.0 g/dL (30.0-36.0) 02/11/22 22:49 RDW 14.7 % (12.1-15.1) 02/11/22 22:49 Plt Count 344 10^3/cmm (130-400) 02/11/22 22:49 MPV 10.2 fL (7.4-10.4) 02/11/22 22:49 Neut % (Auto) 64.3 % 02/11/22 22:49 Lymph % (Auto) 17.1 % 02/11/22 22:49 [place] % (Auto) 12.4 % 02/11/22 22:49 Eos % (Auto) 1.1 % 02/11/22 22:49 Baso % (Auto) 0.4 % 02/11/22 22:49 Neut # (Auto) 7.31 10^3/uL (1.8-7.7) 02/11/22 22:49 Lymph # (Auto) 1.9 10^3/uL (0.8-4.8) 02/11/22 22:49 [place] # (Auto) 1.4 10^3/uL (0.2-0.9) H 02/11/22 22:49 Eos # (Auto) 0.1 10^3/uL (0.0-0.8) 02/11/22 22:49 Baso # (Auto) 0.1 10^3/uL (0.0-0.1) 02/11/22 22:49 Nucleated RBC % (auto) 0 % 02/11/22 22:49 Nucleated RBCs # 0.0 /100WBC 02/11/22 22:49 Sodium 141 mmol/L (136-145) 02/11/22 22:49 Potassium 3.5 mmol/L (3.5-5.1) 02/11/22 22:49 Chloride 98 mmol/L (98-107) 02/11/22 22:49 Carbon Dioxide 29 mmol/L (22-29) 02/11/22 22:49 Anion Gap 17.5 (5-19) 02/11/22 22:49 BUN 8 mg/dL (6-20) 02/11/22 22:49 Creatinine 0.4 mg/dL (0.5-0.9) L 02/11/22 22:49 GFR Calculation 165.7 mL/min (90-130) H 02/11/22 22:49 Glucose 120 mg/dL (65-115) H 02/11/22 22:49 Calculated Osmolality 292 mOsm/kg (285-295) 02/11/22 22:49 Calcium 8.4 mg/dL (8.5-10.5) L 02/11/22 22:49 Total Bilirubin 0.2 mg/dL (0.15-1.2) 02/11/22 22:49 AST 12 U/L (0-32) 02/11/22 22:49 ALT 12 U/L (0-33) 02/11/22 22:49 Alkaline Phosphatase 77 U/L (35-105) 02/11/22 22:49 Troponin T Baseline 10 ng/L (0-10) 02/11/22 22:49 Total Protein 6.0 g/dL (6.6-8.7) L 02/11/22 22:49 Albumin 3.9 g/dL (3.5-5.2) 02/11/22 22:49 Globulin 2.1 g/dL (1.3-4.6) 02/11/22 22:49 EKG Data EKG 1: I personally reviewed and interpreted this EKG as follows: EKG interpretation date: 02/11/22 EKG interpretation time: 22:41 Interpretation: sinus tach hr [address] or t wave abnormalities qrs 102 qtc 410 Discharge Plan Discharge Patient Disposition: Home Clinical Impression: Chest pain Qualifiers: Chest pain type: unspecified Qualified Code(s): R07.9 - Chest pain, unspecified Condition: Stable Prescriptions: No Action fluticasone propionate 50 mcg/actuation spray,suspension 2 spray INTRANASAL DAILY Qty: 16 2RF (DME) Easy Touch SheathLock Syrg-Ndl 3 mL 25 gauge x 1 syringe See Rx Instructions .ROUTE .MEDSUPPLY Qty: 1 2RF Rx Instructions: use monthly with Vitamin B12 tizanidine 2 mg tablet 2 mg PO BID Qty: 60 2RF Rx Instructions: dose decrease Daliresp 500 mcg tablet 500 mcg PO DAILY Qty: 30 2RF oxycodone 10 mg tablet 10 mg PO Q4H PRN (Reason: Pain) folic acid 800 mcg tablet 800 mcg PO DAILY Qty: 30 2RF Rx Instructions: dose decrease ipratropium-albuterol 0.5 mg-3 mg(2.5 mg base)/3 mL solution for nebulization 3 ml inhalation Q6H.RESPIRATORY Qty: 300 5RF gabapentin 400 mg capsule 400 mg PO BID Qty: 60 2RF Rx Instructions: nerve pain multivitamin with folic acid [Tab-A-Beth] 400 mcg tablet 1 tab PO DAILY Qty: 30 2RF montelukast [Singulair] 10 mg tablet 10 mg PO DAILY Qty: 30 2RF paroxetine HCl [Paxil] 10 mg tablet 10 mg PO DAILY Qty: 30 2RF naproxen 500 mg tablet 500 mg PO BID PRN (Reason: pain) Qty: 60 2RF Trelegy Ellipta 100-62.5-25 mcg blister with device 1 inh inhalation DAILY Qty: 60 2RF cholecalciferol (vitamin D3) 125 mcg (5,000 unit) capsule 5,000 unit PO DAILY Qty: 30 2RF loratadine [Claritin] 10 mg tablet 10 mg PO DAILY Qty: 30 2RF buspirone 10 mg tablet 10 mg PO BID Qty: 60 2RF Rx Instructions: Ventolin HFA 90 mcg/actuation HFA aerosol inhaler 2 puff inhalation Q4H MDD 6 times PRN (Reason: shortness of breath or wheezing) cyanocobalamin (vitamin B-12) 1,000 mcg/mL solution 1,000 mcg IM Q30D hydroxyzine pamoate 25 mg capsule 25 mg PO BID levofloxacin 750 mg tablet 750 mg PO DAILY 7 Days Qty: 7 0RF doxycycline hyclate 100 mg tablet 100 mg PO BID 7 Days Qty: 14 0RF Medrol (Jesus) 4 mg tablets,dose pack 4 mg PO DAILY Qty: 21 0RF Cardizem CD 240 mg capsule,extended release 24hr 240 mg PO DAILY Qty: 90 1RF Discharge Orders: Discharge ED (Routine); Ordered 02/11/22 Ordered By: Grzegorz Angulo Referrals: Arnaldo Pimentel, [facility] [facility] [Primary Care Provider] - Discharge Diet: Advance as tolerated Discharge Activity: Resume usual activity Patient Instructions: Chest Pain (ED) Coding Level of Care Code ED Director Mobile for Kaylah Fwd Exam Comprehensive
[2022-02-11 23:06] LABS: Basophils # 0.1 10^3/uL (0.0-0.1); Basophils % 0.4 %; Eosinophils # 0.1 10^3/uL (0.0-0.8); Eosinophils % 1.1 %; Hematocrit 38.1 % (37.0-47.0); Hemoglobin 12.2 g/dL (11.5-15.3); Lymphocytes # 1.9 10^3/uL (0.8-4.8); Lymphocytes % 17.1 %; Mean Corpuscular Hemoglobin 30.1 pg (28.0-34.0); Mean Corpuscular Volume 94.1 fl (81-99); Mean Platelet Volume 10.2 fL (7.4-10.4); Monocytes # 1.4 10^3/uL (0.2-0.9); Monocytes % 12.4 %; Neutrophils # 7.31 10^3/uL (1.8-7.7); Neutrophils % 64.3 %; Nucleated Red Blood Cells % 0 %; Platelet Count 344 10^3/cmm (130-400); Red Blood Count 4.05 10^6/uL (4.1-5.3); Red Cell Distribution Width 14.7 % (12.1-15.1); White Blood Count 11.4 10^3/uL (4.0-10.0)
[2022-02-11 23:20] LABS: Blood Urea Nitrogen 8 mg/dL (6-20); Carbon Dioxide 29 mmol/L (22-29); Total Bilirubin 0.2 mg/dL (0.15-1.2)
[2022-02-11 23:22] LABS: Troponin(5th) Baseline 10 ng/L (0-10)
[2022-02-11 23:26] LABS: Anion Gap 17.5 (5-19); Chloride 98 mmol/L (98-107); Potassium 3.5 mmol/L (3.5-5.1); Sodium 141 mmol/L (136-145)
[2022-02-11 23:44] LABS: Albumin Level 3.9 g/dL (3.5-5.2); Alkaline Phosphatase 77 U/L (35-105)
[2022-02-11 23:56] LABS: Alanine Aminotransferase 12 U/L (0-33); Aspartate Amino Transferase 12 U/L (0-32); Calcium 8.4 mg/dL (8.5-10.5); Globulin 2.1 g/dL (1.3-4.6); Glomerular Filtration Rate 165.7 mL/min (90-130); Glucose 120 mg/dL (65-115); Osmolality Calculated 292 mOsm/kg (285-295)
[2022-02-12] VITALS: BP 122/80; PULSE 91; RESP 16; O2SAT 97
== END 2022-02-12 00:23 | disposition home or self-care (01) ==
PROVIDERS: Emergency Provider Emergency Medicine; PCP Nurse Practitioner
DX: R07.9 Chest pain, unspecified (principal); F17.210 Nicotine dependence, cigarettes, uncomplicated; J44.9 Chronic obstructive pulmonary disease, unspecified; I10 Essential (primary) hypertension
CPT/HCPCS: 71045; 80053; 84484; 85025; 93005; 99285

== ENCOUNTER → 2022-02-25 09:37 | Outpatient (BNVA) | payer MEDICARE, MEDICAID, SELFPAY | PROVIDERS: PCP Nurse Practitioner; Visit Provider Internal Medicine Pulmonary Disease | DX: J43.1 Panlobular emphysema (principal); J96.11 Chronic respiratory failure with hypoxia; J96.12 Chronic respiratory failure with hypercapnia; R93.89 Abnormal findings on diagnostic imaging of other specified body structures; Z99.81 Dependence on supplemental oxygen; F17.210 Nicotine dependence, cigarettes, uncomplicated | CPT/HCPCS: 99214 ==